=== PATIENT | male | born 1945 | race Caucasian/White ===

== ENCOUNTER 2017-04-30 08:22 | Inpatient (IN) | payer MEDICARE ==
--- NOTE | 2017-04-30 09:23 | US ---
EXAMINATION TYPE: US duplex aorta DATE OF EXAM: 04/30/2017 COMPARISON: NONE CLINICAL HISTORY: Z13.9 Screening unspecified, I10 HTN. Patient states no symptoms at this time EXAM MEASUREMENTS: Abdominal Aorta: Proximal: 2.3 x 2.2cm Mid: 1.9 x 2.1cm Distal: 1.7 x 1.5cm Right Iliac: 1.3 x 1.3cm Left Iliac: 1.2 x 1.3cm Visualized portions of abdominal aorta and proximal iliacs appear wnl, no AAA seen at this time, mid portion of aorta partially obscured by overlying midline bowel gas. IMPRESSION: No sonographic evidence of abdominal aortic aneurysm.
--- NOTE | 2017-04-30 11:28 | ECHOS ---
STRESS ECHOCARDIOGRAM INDICATIONS: Physical. MEDICATIONS: Lisinopril, aspirin. BASELINE HEART RATE: 79 BASELINE BLOOD PRESSURE: 153/103 MAXIMUM HEART RATE: 143 MAXIMUM BLOOD PRESSURE: 155/80 85% MPHR: 128 100% MPHR: 150 METS: 7.0 MAXIMUM STAGE REACHED: II TOTAL EXERCISE TIME: 5:06 CLINICAL INFORMATION: Baseline rhythm is sinus mechanism, rate of 79, borderline axis deviation, nonspecific ST-T wave changes. QS from V1 to V3 suggestive of anterior wall myocardial infarction. Baseline blood pressure 153/103 mmHg. Patient exercised on Zeferino protocol for 5 minutes, 6 seconds reaching a peak heart rate of 143 beats per minute which was equal to 95% of maximum predicted heart rate. Peak blood pressure 155/80 mmHg. Test was terminated due to fatigue. There was no chest pain. Electrocardiograph monitoring revealed a [address]-segment depression in inferolateral leads with occasional PVCs. FINDINGS: Baseline echocardiogram revealed anteroseptal and anteroapical severe hypokinesis that got worse at peak exercise with some improvement in recovery. CONCLUSION: 1. Average exercise tolerance with positive electrocardiographic stress testing and occasional premature ventricular contractions. 2. Abnormal stress echocardiogram with baseline segmental wall motion abnormality that got worse at peak exercise, suggestive of stress-induced ischemia in the left anterior descending artery territory. MMODL / IJN: [id number] /
--- NOTE | 2017-04-30 11:35 | ECHOF ---
Referral Reason:Z13.9 Screening Unspecified, I10 HTN MEASUREMENTS -------- HEIGHT: 172.7 cm WEIGHT: 98.4 kg BP: IVSd: 1.3 cm (0.6 - 1.1) LVIDd: 6.2 cm (3.9 - 5.3) LVPWd: 1.3 cm (0.6 - 1.1) IVSs: 1.5 cm LVIDs: 5.5 cm LVPWs: 1.3 cm LA Diam: 4.3 cm (2.7 - 3.8) LAESV Index (A-L): 39.66 ml/m Ao Diam: 3.4 cm (2.0 - 3.7) AV Cusp: 1.7 cm (1.5 - 2.6) LA Diam: 3.3 cm (2.7 - 3.8) MV EXCURSION: 14.924 mm (> 18.000) MV EF SLOPE: 79 mm/s (70 - 150) EPSS: 2.6 cm MV E Ch[place]: 0.40 m/s MV DecT: 283 ms MV A [place]: 0.61 m/s MV E/A Ratio: 0.66 RAP: 5.00 mmHg RVSP: 12.04 mmHg FINDINGS -------- Sinus rhythm. This was a technically adequate study. This was a techncally difficult study with suboptimal views, , Definity utilized for enhancement of images. The left ventricular size is normal. Left ventricular wall thickness is normal. Overall left vent ricular systolic function is severely impaired with, an EF between 25 - 30 %. Mid anterior LV wall motion is akinetic. Mid lateral LV wall motion is hypokinetic. Mid anteroseptal LV wall motion is hypokinetic. Apical anterior LV wall motion is akinetic. Apical lateral LV wall motion is ak inetic. Apical septum LV wall motion is akinetic. The right ventricle is normal in size and function. LA is moderately dilated 34-39 ml/m2 The right atrium is normal in size. 1.5mg of Definity was utilized for enhancement of images There is mild aortic valve sclerosis. There is mild aortic regurgitation. Mild mitral annular calcification present. Hxrw-lp-[id number] mitral regurgitation is present. Mild tricuspid regurgitation present. There is no evidence of pulmonary hypertension. The right v entricular systolic pressure, as measured by Doppler, is 12.04mmHg. Trace/mild (physiologic) pulmonic regurgitation. There is no pericardial effusion. CONCLUSIONS -------- 1. Sinus rhythm. 2. This was a technically adequate study. 3. This was a techncally difficult study with suboptimal views, , Definity utilized for enhancement o f images. 4. The left ventricular size is normal. 5. Left ventricular wall thickness is normal. 6. Overall left ventricular systolic function is severely impaired with, an EF between 25 - 30 %. 7. Mid anterior LV wall motion is akinetic. 8. Mid lateral LV wall motion is hypokinetic. 9. Mid anteroseptal LV wall motion is hypokinetic. 10. Apical anterior LV wall motion is akinetic. 11. Apical lateral LV wall motion is akinetic. 12. Apical septum LV wall motion is akinetic. 13. LA is moderately dilated 34-39 ml/m2 14. 1.5mg of Definity was utilized for enhancement of images 15. There is mild aortic regurgitation. 16. Mild mitral annular calcification present. 17. Colq-ba-qaukoebt mitral regurgitation is present. 18. Mild tricuspid regurgitation present. 19. There is no evidence of pulmonary hypertension. 20. Trace/mild (physiologic) pulmonic regurgitation. 21. There is no pericardial effusion. SOLVENT MIXER: Ruth Ascencio RDCS
[2017-04-30] MEDS ORDERED: HEPARIN SODIUM,PORCINE 5,000 UNIT/ML 1 ML VIAL IV ONE (11:50)
[2017-04-30] MEDS ORDERED: HEPARIN SODIUM,PORCINE 5,000 UNIT/ML 1 ML VIAL IV PRN (11:50)
[2017-04-30] MEDS ORDERED: ALPRAZolam 0.25 MG TAB PO PRN (11:52)
[2017-04-30] MEDS ORDERED: ALPRAZolam 0.5 MG TAB PO PRN (11:52)
[2017-04-30] MEDS ORDERED: NITROGLYCERIN SL TABS 0.4 MG TAB SUBLINGUAL PRN (11:52)
[2017-04-30] MEDS ORDERED: SODIUM CHLORIDE 0.9% 1,000 ML in EMPTY BAG 1 BAG IV ONE (11:52)
[2017-04-30] MEDS: HEPARIN SOD,PORK IN 0.45% NACL 25,000 UNIT in 0.45% NACL 1 500ML.BAG IV SCH (13:00)
[2017-04-30 13:08] LABS: Basophils # (A) 0.1 k/uL (0-0.2); Basophils % (A) 1 %; Eosinophils # (A) 0.2 k/uL (0-0.7); Eosinophils % (A) 3 %; HCT 47.4 % (39.0-53.0); HGB 15.6 gm/dL (13.0-17.5); Lymphocytes # (A) 1.7 k/uL (1.0-4.8); Lymphocytes % (A) 25 %; MCH 31.9 pg (25.0-35.0); MCV 96.8 fL (80.0-100.0); Mean Platelet Volume 6.7; Monocytes # (A) 0.5 k/uL (0-1.0); Monocytes % (A) 7 %; Neutrophils # (A) 4.3 k/uL (1.3-7.7); Neutrophils % (A) 62 %; Platelet Count 188 k/uL (150-450); RBC 4.89 m/uL (4.30-5.90); RDW 13.1 % (11.5-15.5)
[2017-04-30 13:09] LABS: Anion Gap 10 mmol/L; Blood Urea Nitrogen 16 mg/dL (9-20); Carbon Dioxide 26 mmol/L (22-30); Chloride 105 mmol/L (98-107); Glucose 97 mg/dL (74-99); Potassium 4.7 mmol/L (3.5-5.1); Sodium 141 mmol/L (137-145)
[2017-04-30 13:10] LABS: INR 1.1 (<1.2); Partial Thromboplastin Time 23.5 sec (22.0-30.0); Prothrombin Time 10.4 sec (9.0-12.0)
[2017-04-30] MEDS: METOPROLOL TARTRATE 25 MG TAB PO SCH ×2 (13:29→20:22)
--- NOTE | 2017-04-30 13:34 | CONS ---
CONSULTATION Mr. Mittal is a 71-year-old male with a history of hypertension and no prior documented history of coronary artery disease who presented to undergo a stress test. He has complained of significant dyspnea on exertion about a week or so ago working outside trying to pull some of [place] material from the beach. He has been active physically but not over the last year or so. He had a normal EKG and was referred to undergo a stress echocardiogram. His baseline echocardiogram revealed anteroapical anteroseptal hypokinesis that worsened at peak exercise and had significant dyspnea at peak exercise with EKG changes. The patient denies any clear symptoms of chest discomfort. He has no PND or orthopnea. He denies any peripheral edema. He has a prior history of varicose vein with intervention performed by Dr. Cook on the left lower extremity. He has no prior cardiac history or prior cardiac workup. His coronary risk factors are positive for hypertension. He is nondiabetic, nonsmoker. His lipid profile is not available to me. MEDICATIONS: His medications at home include lisinopril 20 mg daily and aspirin once a day. REVIEW OF SYSTEMS: RESPIRATORY SYSTEM: He has no documented history of asthma, emphysema or bronchitis. GI SYSTEM: No recent GI bleeding. No peptic ulcer disease. SYSTEM: No dysuria or hematuria. PHYSICAL EXAMINATION: He is a 71-year-old male, alert, oriented, in no apparent distress. Blood pressure 150/90 with a heart rate in the 70s. HEAD: Normocephalic. EYES: Sclerae anicteric. NECK: Good carotid upstroke. No bruit. No jugular venous distention. LUNGS: Clear to auscultation. HEART: Regular rate and rhythm, S1, S2, no S3 with a systolic murmur at the base. No diastolic murmur. No rub. ABDOMEN: Soft, nontender, obese. Positive bowel sounds. No organomegaly. EXTREMITIES: +1 edema bilaterally, more noted on the right side. LAB DATA: Lab data are pending. IMPRESSION: 1. Evidence of ischemic cardiomyopathy with severely impaired left ventricular systolic function with evidence of inducible ischemia in the left anterior descending artery territory of unknown duration. 2. Hypertension. RECOMMENDATION: In view of the finding and the presentation, I have recommended proceeding with coronary angiography to assess his status and guide his treatment. The rationale behind the procedure as well as the risks and complications were discussed with the patient and his and they are in full understanding and agreement. Thank you for this consult. We will follow with you. MMODL / IJN: [id number] /
[2017-04-30 17:00] LABS: Glucose,Whole Blood 89 mg/dL (75-99)
[2017-04-30] MEDS: ASPIRIN 81 MG PO SCH (17:37)
[2017-04-30] MEDS: ATORVASTATIN 80 MG TAB PO SCH (20:22)
[2017-04-30] MEDS: LISINOPRIL 5 MG TAB PO SCH (20:22)
[2017-05-01] MEDS ORDERED: ASPIRIN 81 MG PO STA (04:02)
[2017-05-01 06:00] LABS: Basophils # (A) 0.1 k/uL (0-0.2); Basophils % (A) 1 %; Eosinophils # (A) 0.3 k/uL (0-0.7); Eosinophils % (A) 4 %; HCT 46.6 % (39.0-53.0); HGB 14.8 gm/dL (13.0-17.5); Lymphocytes # (A) 1.6 k/uL (1.0-4.8); Lymphocytes % (A) 26 %; MCH 30.6 pg (25.0-35.0); MCHC 31.8 g/dL (31.0-37.0); MCV 96.2 fL (80.0-100.0); Mean Platelet Volume 7.1; Monocytes # (A) 0.5 k/uL (0-1.0); Monocytes % (A) 8 %; Neutrophils # (A) 3.7 k/uL (1.3-7.7); Neutrophils % (A) 59 %; Platelet Count 176 k/uL (150-450); RBC 4.85 m/uL (4.30-5.90); RDW 13.1 % (11.5-15.5); WBC 6.3 k/uL (3.8-10.6)
[2017-05-01 06:19] LABS: Cholesterol 165 mg/dL (<200); HDL Cholesterol 46 mg/dL (40-60); LDL Cholesterol,Calculated 93 mg/dL (0-99); Triglycerides 128 mg/dL (<150)
[2017-05-01] MEDS: LISINOPRIL 5 MG TAB PO SCH (06:59)
[2017-05-01] MEDS: METOPROLOL TARTRATE 25 MG TAB PO SCH ×2 (07:00→20:15)
[2017-05-01] MEDS ORDERED: CHLOROPROCAINE 3% 30 MG/ML 20 ML VIAL MISCELLANE STA (11:21)
--- NOTE | 2017-05-01 11:26 | P.HPIM ---
History of Present Illness 71-year-old male was admitted after abnormal stress test. Patient states he's had intermittent exertional dyspnea no chest pain. Was found to have abnormal EKG and routine physical at primary care physician office Dr. Mcknight. Patient awaiting cardiac cath Review of Systems Respiratory: Reports dyspnea Past Medical History Past Medical History: Hypertension, Osteoarthritis (OA), Pneumonia, Syncope Additional Past Medical History / Comment(s): 2012 [facility] for lle wound History of Any Multi-Drug Resistant Organisms: None Reported Additional Past Surgical History / Comment(s): vasectomy Past Anesthesia/Blood Transfusion Reactions: No Reported Reaction Smoking Status: Former smoker - Past Family History Father Family Medical History: Myocardial Infarction (MD) Additional Family Medical History / Comment(s): at age 90 from [place] Mother Family Medical History: No Reported History Additional Family Medical History / Comment(s): at age 92 "from old age" Medications and Allergies Home Medications Medication Instructions Recorded Confirmed Type Aspirin 325 mg PO DAILY 10/11/15 04/30/17 History Lisinopril [Zestril] 20 mg PO DAILY 10/11/15 04/30/17 History Allergies Allergy/AdvReac Type Severity Reaction Status Date / Time Penicillins Allergy Unknown Verified 04/30/17 13:43 NOVACAINE Allergy Unknown Uncoded 10/11/15 18:42 Physical Exam Vitals: Vital Signs Temp Pulse Resp BP Pulse Ox 05/01/17 07:37 98.3 F 61 16 127/66 97 05/01/17 04:00 59 L 17 05/01/17 03:21 97.4 F L 59 L 17 109/69 97 05/01/17 00:00 17 04/30/17 23:42 98.6 F 61 17 97/60 04/30/17 20:00 17 04/30/17 19:25 97.5 F L 106 H 17 153/93 04/30/17 14:45 97.5 F L 69 18 149/88 96 04/30/17 11:56 97.9 F 20 140/98 98 Intake and Output 04/30/17 05/01/17 05/01/17 22:59 06:59 14:59 Intake Total 540 0 Balance 540 0 Intake: Oral 540 0 Other: Voiding Method Toilet Toilet Toilet # Voids 1 1 Weight 112.037 kg Patient Weight 05/02/17 06:59 Weight 112.037 kg - Constitutional General appearance: obese - EENT Eyes: PERRLA Ears: bilateral: normal - Neck Neck: normal ROM - Respiratory Respiratory: bilateral: CTA - Cardiovascular Rhythm: regular ankle Peripheral Edema: bilateral: 1+ - Gastrointestinal General gastrointestinal: soft - Integumentary Integumentary: normal - Neurologic Neurologic: CNII-XII intact - Musculoskeletal Musculoskeletal: gait normal - Psychiatric Psychiatric: A&O x's 3, appropriate affect, intact judgment & insight Results CBC & Chem 7: 05/01/17 05:23 04/30/17 12:31 Labs: Abnormal Lab Results - Last 24 Hours (Table) 04/30/17 Range/Units 19:02 APTT 47.6 H (22.0-30.0) sec Thrombosis Risk Factor Assmnt - Choose All That Apply Any of the Below Risk Factors Present?: Yes Each Factor Represents 1 point: Oral contraceptives or hormone replacement therapy Other Risk Factors: Yes Each Risk Factor Represents 2 Points: Age 61-74 years Other congenital or acquired thrombophilia - If yes, enter type in comment: No Thrombosis Risk Factor Assessment Total Risk Factor Score: 3 Thrombosis Risk Factor Assessment Level: Moderate Risk Assessment and Plan Plan: Assessment Positive stress test evidence of ischemic cardiomyopathy with severely impaired left ventricular function History of hypertension CHF systolic dysfunction ejection fraction 25-30% Osteoarthritis Plan Continue consultation with cardiology cardiac cath plan for today
[2017-05-01] MEDS ORDERED: IV FLUID CONTINUATION 1,000 ML IV ONE (11:30)
[2017-05-01] MEDS ORDERED: fentaNYL (PF) 50 MCG/ML 2 ML AMP IV ONE (11:33)
[2017-05-01] MEDS ORDERED: LIDOCAINE 2% INJ 20 MG/ML SQ ONE (11:35)
[2017-05-01] MEDS: VERAPAMIL SYRINGE (5 MG/10 ML) INTRAARTER ONE ×2 (11:36→11:42)
[2017-05-01] MEDS ORDERED: MIDAZOLAM 2 MG/2 ML VIAL IV ONE (11:37)
[2017-05-01] MEDS ORDERED: HYDROmorphone 2 MG/ML 1 ML SYRINGE IV ONE (11:47)
[2017-05-01] MEDS ORDERED: IOHEXOL 350 MG/ML 125ML BOTTLE INJ ONE (11:56)
[2017-05-01] MEDS ORDERED: RX INFO: IV CONTRAST WAS GIVEN 1 EACH MISC MISCELLANE PRN (12:02)
[2017-05-01] MEDS ORDERED: LISINOPRIL 5 MG TAB PO ONE (12:15)
[2017-05-01] MEDS ORDERED: SODIUM CHLORIDE 0.9% 1,000 ML IV SCH (12:15)
--- NOTE | 2017-05-01 12:57 | CC ---
CARDIAC CATHETERIZATION REPORT Mr. Mittal is a 71-year-old male with history of hypertension, hyperlipidemia, who presented to undergo a stress echocardiogram that showed evidence of inducible ischemia involving the anterior wall with segmental wall motion abnormality at rest. In view of that, recommendation made regarding cardiac catheterization. The procedure, risks and complication were discussed with the patient who is in full understanding and agreement. PROCEDURE: Patient was brought to the [facility] in a fasting semi-sedated state after receiving fentanyl and Benadryl and achieving moderate conscious sedated state. Using Xylocaine anesthesia and Seldinger technique, a 6-Icelandic sheath was introduced in the right radial artery. Selective right and left angiography performed using 5-Icelandic 3.5 bend right and left Shobha catheter, multiple views of the coronary artery including hemiaxial views were obtained. Following that, catheter and sheaths were removed. Hemostasis was obtained with deployment of a TR band. There was no immediate complication. Patient is returned to his room in stable condition. Of note, patient received 5000 units of intravenous heparin as well as intra-arterial verapamil. FINDINGS: 1. FLUOROSCOPY: There was significant calcification involving the coronary arteries. 2. LEFT MAIN: This is a short size vessel bifurcating into left circumflex, left anterior descending artery, left main coronary artery has no evidence of high-grade stenosis. 3. LEFT ANTERIOR DESCENDING ARTERY: This vessel is totally occluded proximally with no significant antegrade flow. There is filling of the LAD and the diagonal branch in a retrograde fashion with ipsilateral and contralateral collaterals. 4. LEFT CIRCUMFLEX: This is a nondominant vessel giving rise to 2 obtuse marginal branch after the takeoff of the first obtuse marginal branch. The vessel is subtotally occluded with slow flow into the distal left circumflex. 5. RIGHT CORONARY ARTERY: This is a large dominant vessel bifurcating distally into PDA and PLV. The takeoff of the PDA has a 90% stenosis. The rest of the vessel has no high-grade stenosis. 6. LEFT VENTRICULOGRAM: Left ventriculogram was not performed. CONCLUSION: 1. Severe triple-vessel coronary artery disease with chronically occluded proximal left anterior descending artery with ipsilateral and contralateral collaterals. 2. Calcified coronary arteries. RECOMMENDATION: Recommend proceeding with coronary artery bypass grafting in view of his finding and his anatomy. Those findings and recommendation were discussed with the patient and his family who are in full understanding and agreement. DURATION OF THE PROCEDURE: 20 minutes. MMODL / IJN: [id number] /
--- NOTE | 2017-05-01 13:03 | LTR ---
DATE OF SERVICE: 05/01/2017 RE: KyrieJavad Dear Dr. Mcknight; I had the pleasure to perform cardiac catheterization on Mr. Mittal at [facility] on May 01, 2017 and a full copy of the procedure note will be forwarded to you. In brief, he was found to have a chronic occluded proximal LAD as well as distal left circumflex and significant disease in the right PDA with ipsilateral and contralateral collaterals to the LAD and based on those findings, I have recommended proceeding with evaluation for coronary artery bypass grafting. I will keep you updated on his progress and thank you again for allowing me to participate in this patient's care. Please feel free to call for any questions. Sincerely yours, MD JOEY Neely / REY: [id number] /
--- NOTE | 2017-05-01 15:21 | CDI ---
Last Revision, February 2017 Documentation Clarification Form Date: 05/01/2017 3:11:00 PM From: Randi MooreBourgeoisBEATRIZ coulter, CCDS Admit Date: 05/01/2017 2:20:00 PM Patient Name: Javad Mittal Visit Number: [id number] Discharge Date: ATTENTION: The Clinical Documentation Specialists (CDI) and [facility] Coding Staff appreciate your assistance in clarifying documentation. Please respond to the clarification below the line at the bottom and electronically sign. The CDI & [facility] Coding staff will review the response and follow-up if needed. Please note: Queries are made part of the Legal Health Record. If you have any questions, please contact the author of this message via ITS. Dr. Beto Mcknight: History/Risk Factors: Hypertension, Former smoker. Clinical Indicators: Presented with dyspnea on exertion, abnormal stress test. VSS Per H/P: EF 25-30% Treatment: Left Heart Cath done: Severe triple vessel CAD w/chronically occluded proximal LAD arery. CABG is recommended by cardiology. In your professional opinion, can you please clarify the acuity and type of CHF if known? Systolic Heart Failure: o Acute o Chronic o Acute on Chronic o Unable to Determine o Other, please specify Please continue to document in your progress notes and discharge summary in order to capture severity of illness and risk of mortality. Include clinical findings that support your diagnosis. MTDD
[2017-05-01] MEDS: ASPIRIN 81 MG PO SCH (16:00)
--- NOTE | 2017-05-01 17:50 | P.GSCN ---
History of Present Illness Consult date: 05/01/17 Reason for Consult: Severe triple-vessel coronary artery disease, recommendations for myocardial revascularization surgery. Requesting physician: Rolando House History of present illness: This is a 71-year-old gentleman who is followed by Dr. Beto Mcknight on an outpatient basis. His past medical history includes hypertension, osteoarthritis, remote history of pneumonia, and a remote history of tobacco abuse which he quit over 20 years ago. About 3 weeks ago the patient presented to his primary care's office for an annual checkup. A 12-lead EKG was completed which was normal, although he was referred to undergo a stress echocardiogram. Recently, the patient has had complaints of some progressive shortness of breath with periodic episodes of chest pain with activity. The patient denies any nausea, vomiting, fever, chills, or dizziness. On 2017 the patient underwent a stress echocardiogram which showed average exercise tolerance with positive electrocardiographic stress testing and occasional premature ventricular contractions. It also showed abnormal stress echocardiogram with baseline segmental wall motion abnormality that got worse at peak exercise, suggestive of stress-induced ischemia in the left anterior descending artery territory. Due to the patient's positive stress echocardiogram he was recommended to undergo a cardiac catheterization. On 10/2017 the patient was taken to the [facility] and after obtaining consent Dr. House performed a cardiac catheterization which demonstrated a totally occluded left anterior descending coronary artery, a subtotally occluded circumflex coronary artery with slow flow into the distal left circumflex, and a 90% stenosis to his posterior descending coronary artery. Due to the patient' s above-mentioned symptoms, abnormal stress echocardiogram and cardiac catheterization findings a consult was placed for Dr. Lacey from cardiothoracic surgery, for recommendations on myocardial revascularization surgery. Review of Systems A 12 point review of systems was completed and was negative except as mentioned in HPI. Past Medical History Past Medical History: Hypertension, Osteoarthritis (OA), Pneumonia Additional Past Medical History / Comment(s): 2013 was treated in the wound healing center at [facility] for left lower extremity wound ulcer. History of Any Multi-Drug Resistant Organisms: None Reported Additional Past Surgical History / Comment(s): vasectomy, wound debridement to his left lower extremity in 2013 with vein stripping to his left leg. Past Anesthesia/Blood Transfusion Reactions: No Reported Reaction Past Psychological History: No Psychological Hx Reported Smoking Status: Former smoker (Quit 20 years ago.) Past Alcohol Use History: Occasional (Less than 1 drink a week.) Past Drug Use History: None Reported - Past Family History Father Family Medical History: Myocardial Infarction (AR) Additional Family Medical History / Comment(s): at age 90 from [place] Mother Family Medical History: No Reported History Additional Family Medical History / Comment(s): at age 92 "from old age" Medications and Allergies Home Medications Medication Instructions Recorded Confirmed Type Aspirin 325 mg PO DAILY 10/11/15 04/30/17 History Lisinopril [Zestril] 20 mg PO DAILY 10/11/15 04/30/17 History Allergies Allergy/AdvReac Type Severity Reaction Status Date / Time Penicillins Allergy Unknown Verified 04/30/17 13:43 NOVACAINE Allergy Unknown Uncoded 10/11/15 18:42 Surgical - Exam Vital Signs Temp Resp BP Pulse Ox 97.9 F 20 140/98 98 04/30/17 11:56 04/30/17 11:56 04/30/17 11:56 04/30/17 11:56 - General well developed, well nourished, no distress, no pain, obese - Eyes PERRL, normal ocular movement - ENT normal pinna, normal nares, normal mucosa, no hearing loss, no congestion - Neck Neck supple no lymphadenopathy. no masses, no bruits, trachea midline, no venous distension - Respiratory Lungs sounds essentially clear throughout, diminished was bilateral bases. Respirations are symmetrical and nonlabored. Oxygen saturation are 97% on room air. - Cardiovascular Regular rhythm and rate. S1 and S2 present, negative for S3, gallop or murmur. Remote telemetry showing sinus bradycardia heart rate 53. No edema present. Peripheral pulses palpable. - Abdomen Abdomen is soft, nontender nondistended. Active bowel sounds all 4 abdominal quadrants. No organomegaly, no guarding or rigidity. - Integumentary no rash, no growths, no abnormal pigmentation - Neurologic normal coordination, normal sensation - Musculoskeletal normal gait, normal posture - Psychiatric oriented to time, oriented to person, oriented to place, speech is normal, memory intact Results - Labs 05/01/17 05:23 04/30/17 12:31 Abnormal Lab Results - Last 24 Hours (Table) 04/30/17 Range/Units 19:02 APTT 47.6 H (22.0-30.0) sec Diabetes panel 05/01/17 Range/Units 05:23 Triglycerides 128 (<150) mg/dL HDL Cholesterol 46 (40-60) mg/dL - Imaging Comments: Stress echo results reviewed, cardiac catheterization films and report reviewed by Dr. Edwin Lacey. Assessment and Plan (1) Hypertension Current Visit: Yes Status: Acute Code(s): I10 - ESSENTIAL (PRIMARY) HYPERTENSION SNOMED Code(s): 07457203 (2) Coronary artery disease Current Visit: Yes Status: Acute Code(s): I25.10 - ATHSCL HEART DISEASE OF [place] CORONARY ARTERY W/O ANG PCTRS SNOMED Code(s): 30696924 (3) Osteoarthritis Current Visit: Yes Status: Acute Code(s): M19.90 - UNSPECIFIED OSTEOARTHRITIS, UNSPECIFIED SITE SNOMED Code(s): 187141540 (4) History of tobacco abuse Current Visit: Yes Status: Acute Code(s): Z87.891 - PERSONAL HISTORY OF NICOTINE DEPENDENCE SNOMED Code(s): 0727267095319 Plan: The patient was seen and examined. His chart and diagnostics were reviewed. Preoperative teaching was initiated with the patient and his . Preoperative testing initiated. Dr. Lacey spoke with the patient and his , the patient will follow-up with Dr. Lacey in the office on 05/08/2017 at 3: 15 PM to discuss the risks and benefits of myocardial revascularization. Continue aspirin, statin, MARY ANNE inhibitor and beta rosita. We will obtain a 2-D echocardiogram to assess his valvular function. Thank you Dr. House for this consult and we look for to working with you in the care of your patient. Time with Patient: Greater than 30
[2017-05-01 18:06] LABS: Magnesium 2.2 mg/dL (1.6-2.3)
[2017-05-01] MEDS: ATORVASTATIN 80 MG TAB PO SCH (20:15)
[2017-05-01] MEDS: LISINOPRIL 10 MG TAB PO SCH (20:15)
[2017-05-01] MEDS: HEPARIN SOD,PORK IN 0.45% NACL 25,000 UNIT in 0.45% NACL 1 500ML.BAG IV SCH (22:48)
[2017-05-02 00:04] LABS: Appearance,Urine Clear (Clear); Bilirubin,Urine Negative (Negative); Blood,Urine Negative (Negative); Color,Urine Yellow; Glucose,Urine (UA) Negative (Negative); Ketones,Urine Negative (Negative); Leukocyte Esterase,Urine Negative (Negative); Nitrite,Urine Negative (Negative); Protein,Urine Negative (Negative); Specific Gravity,Urine 1.016 (1.001-1.035); Urobilinogen,Urine <2.0 mg/dL (<2.0)
[2017-05-02 00:55] VITALS: RESP 18
[2017-05-02 01:35] LABS: Hemoglobin A1C 5.4 % (4.0-6.0)
[2017-05-02 01:49] LABS: Hepatitis A Antibody IgM Non-Reactive (Non-Reactive); Hepatitis B Core IgM Non-Reactive (Non-Reactive)
[2017-05-02 05:57] VITALS: TEMP 97.9
[2017-05-02 06:02] LABS: ALT 36 U/L (21-72); AST 25 U/L (17-59); Albumin 3.4 g/dL (3.5-5.0); Alkaline Phosphatase 46 U/L (38-126); Anion Gap 10 mmol/L; Blood Urea Nitrogen 18 mg/dL (9-20); Calcium 8.5 mg/dL (8.4-10.2); Carbon Dioxide 21 mmol/L (22-30); Chloride 107 mmol/L (98-107); Glucose 94 mg/dL (74-99); Potassium 4.6 mmol/L (3.5-5.1); Sodium 138 mmol/L (137-145); Total Bilirubin 0.4 mg/dL (0.2-1.3); Total Protein 5.7 g/dL (6.3-8.2)
[2017-05-02 06:25] LABS: Basophils # (A) 0.1 k/uL (0-0.2); Basophils % (A) 1 %; Eosinophils # (A) 0.2 k/uL (0-0.7); Eosinophils % (A) 4 %; HCT 43.4 % (39.0-53.0); Lymphocytes # (A) 1.8 k/uL (1.0-4.8); Lymphocytes % (A) 29 %; MCH 31.1 pg (25.0-35.0); MCHC 32.4 g/dL (31.0-37.0); Mean Platelet Volume 7.2; Monocytes # (A) 0.5 k/uL (0-1.0); Monocytes % (A) 8 %; Neutrophils # (A) 3.3 k/uL (1.3-7.7); Neutrophils % (A) 55 %; Platelet Count 154 k/uL (150-450); RBC 4.52 m/uL (4.30-5.90); RDW 13.1 % (11.5-15.5); WBC 5.9 k/uL (3.8-10.6)
--- NOTE | 2017-05-02 07:27 | XR ---
EXAMINATION TYPE: XR chest 2V DATE OF EXAM: 05/02/2017 COMPARISON: 12/31/2014 INDICATION: Presurgical clearance TECHNIQUE: Frontal and lateral views of the chest are obtained. FINDINGS: The heart size is normal. The pulmonary vasculature is normal. The lungs are clear. IMPRESSION: 1. No acute pulmonary process.
[2017-05-02 07:38] VITALS: PULSE 61
[2017-05-02] MEDS: ASPIRIN 81 MG PO SCH (07:38)
[2017-05-02] MEDS: METOPROLOL TARTRATE 25 MG TAB PO SCH (07:38)
[2017-05-02] MEDS: LISINOPRIL 10 MG TAB PO SCH (07:38)
--- NOTE | 2017-05-02 08:39 | P.PN ---
<Sailaja De La O - Last Filed: 05/02/17 08:37> Subjective Progress Note Date: 05/02/17 Principal diagnosis: Severe triple vessel coronary artery disease. Previous history of hypertension , osteoporosis, remote history of pneumonia, previous tobacco dependence, wound debridement and vein stripping to his left leg. Patient currently sitting up in bed in no acute distress. Denies any chest pain or shortness of breath. Preoperative teaching reinforced. Preoperative testing ongoing. Objective - Vital Signs Vital signs: Vital Signs Temp 97.9 F 05/02/17 07:32 Pulse 61 05/02/17 07:32 Resp 18 05/02/17 07:32 BP 129/83 05/02/17 07:32 Pulse Ox 96 05/02/17 07:32 Intake & Output 05/01/17 05/02/17 05/02/17 18:59 06:59 18:59 Intake Total 998 1600 Output Total 300 Balance 698 1600 Weight 112.037 kg 112.5 kg Intake: IV 100 Intake, IV Titration 1600 Amount Sodium Chloride 0.9% 1, 1600 000 ml @ 100 mls/hr IV . Q10H [facility] Rx#:[id number] Oral 898 Output: Urine 300 Stool 0 Urine/Stool Mix 0 Other: Voiding Method Toilet Toilet # Voids 0 # Bowel Movements 0 - Constitutional General appearance: Present: cooperative, no acute distress, obese - Respiratory Details: Lungs sounds diminished bilaterally. Respirations even, nonlabored. Currently on room air with oxygen saturation 99%. Able to achieve 2000 mL on his incentive spirometry. - Cardiovascular Details: S1, S2 present. Regular rate and rhythm, sinus rhythm on telemetry. Palpable peripheral pulses bilaterally. No edema present. No calf pain or tenderness noted. - Gastrointestinal Gastrointestinal Comment(s): Abdomen soft, nontender, nondistended. Active bowel sounds 4 quadrants. Tolerating diet. - Genitourinary Genitourinary Comment(s): Continues to void clear, yellow urine. - Integumentary Integumentary Comment(s): Skin is warm and dry with evidence of good perfusion. Right radial heart catheterization site without edema or ecchymosis. - Neurologic Neurologic: Present: CNII-XII intact - Musculoskeletal Musculoskeletal: Present: gait normal, strength equal bilaterally - Psychiatric Psychiatric: Present: A&O x's 3, appropriate affect, intact judgment & insight - Allied health notes Allied health notes reviewed: nursing - Labs CBC & Chem 7: 05/02/17 05:31 05/02/17 05:31 Labs: Abnormal Lab Results - Last 24 Hours (Table) 05/02/17 Range/Units 05:31 Carbon Dioxide 21 L (22-30) mmol/L Total Protein 5.7 L (6.3-8.2) g/dL Albumin 3.4 L (3.5-5.0) g/dL - Imaging and Cardiology Chest x-ray: report reviewed, image reviewed Assessment and Plan (1) Coronary artery disease Current Visit: Yes Status: Chronic Code(s): I25.10 - ATHSCL HEART DISEASE OF [place] CORONARY ARTERY W/O ANG PCTRS SNOMED Code(s): 21744688 (2) History of tobacco abuse Current Visit: No Status: Resolved Code(s): Z87.891 - PERSONAL HISTORY OF NICOTINE DEPENDENCE SNOMED Code(s): 6032025231325 (3) Hypertension Current Visit: Yes Status: Chronic Code(s): I10 - ESSENTIAL (PRIMARY) HYPERTENSION SNOMED Code(s): 11024391 (4) Osteoarthritis Current Visit: Yes Status: Chronic Code(s): M19.90 - UNSPECIFIED OSTEOARTHRITIS, UNSPECIFIED SITE SNOMED Code(s): 089954163 Plan: 1. Continue aspirin, statin, MARY ANNE inhibitor, beta rosita. 2. Continue preoperative teaching. 3. Will review preoperative testing results as they become available. 4. Patient has a follow-up appointment with Dr. Lacey in the office on 2017 at 3:15 PM to discuss risks and benefits of open heart surgery. 5. Medical management per primary care service. 6. Encourage incentive spirometry. 7. More recommendations to follow. Time with Patient: Greater than 30 <Christiano Singh - Last Filed: 05/02/17 15:14> Objective - Vital Signs Vital signs: Vital Signs Temp 97.9 F 05/02/17 12:00 Pulse 61 05/02/17 12:00 Resp 18 05/02/17 12:00 BP 107/80 05/02/17 12:00 Pulse Ox 97 05/02/17 12:00 Intake & Output 05/01/17 05/02/17 05/02/17 18:59 06:59 18:59 Intake Total 998 1600 240 Output Total 300 Balance 698 1600 240 Weight 112.037 kg 112.5 kg Intake: IV 100 Intake, IV Titration 1600 Amount Sodium Chloride 0.9% 1, 1600 000 ml @ 100 mls/hr IV . Q10H [facility] Rx#:[id number] Oral 898 240 Output: Urine 300 Stool 0 Urine/Stool Mix 0 Other: Voiding Method Toilet Toilet # Voids 0 # Bowel Movements 0 - Labs CBC & Chem 7: 05/02/17 05:31 05/02/17 05:31 Labs: Abnormal Lab Results - Last 24 Hours (Table) 05/02/17 Range/Units 05:31 Carbon Dioxide 21 L (22-30) mmol/L Total Protein 5.7 L (6.3-8.2) g/dL Albumin 3.4 L (3.5-5.0) g/dL Microbiology - Last 24 Hours (Table) 05/01/17 23:54 Urine Culture - Preliminary Urine,Voided Assessment and Plan Plan: The patient was seen and examined. I agree with the above assessment and plan. Patient is currently undergoing preoperative testing. He will follow up with Dr. Lacey as an outpatient for consideration of coronary artery bypass surgery.
--- NOTE | 2017-05-02 08:46 | P.PN ---
Progress Note - Text addendum CHF as exhibited by echo EF 25-30% systolic dysfunction chronic
--- NOTE | 2017-05-02 11:19 | PN ---
PROGRESS NOTE Mr. Mittal is a 71-year-old male who presented with an abnormal stress echocardiogram with evidence of inducible ischemia involving the LAD as well as reversible defect. He underwent a cardiac catheterization and was found to have totally occluded proximal LAD. He also had totally occluded distal circumflex and significant obstructive disease involving the takeoff of the right PDA. The patient was evaluated by the surgical team and scheduled to undergo further evaluation as an outpatient and coronary artery bypass grafting in a week or so. He is feeling well today. He is denying any chest pain. No breathing problem. No dizziness. He continues to be on aspirin once a day, Lipitor 80 mg daily, lisinopril 10 mg twice a day, and metoprolol tartrate 25 mg twice a day. PHYSICAL EXAMINATION: Blood pressure 129/80 with a heart rate in the 60s. LUNGS: Clear. HEART: Regular rhythm, S1, S2. No S3. No rub. ABDOMEN: Soft, nontender. Right radial pulse intact. LAB DATA: Revealed BUN and creatinine 18 and 1.1. Hemoglobin 14.0. Cholesterol of 165, LDL of 93. IMPRESSION: 1. Severe coronary artery disease with totally occluded left anterior descending artery and evidence of ischemic cardiomyopathy, inducible ischemia. 2. Hypertension. 3. Hyperlipidemia. RECOMMENDATION: Patient will be discharged home today and undergo coronary artery bypass grafting in a week or two. . JOEY / ARTURON: [id number] /
[2017-05-02 12:06] VITALS: BP 107/80
--- NOTE | 2017-05-02 16:00 | US ---
EXAMINATION TYPE: US carotid duplex BILAT DATE OF EXAM: 05/02/2017 COMPARISON: NONE CLINICAL HISTORY: Preop cardiac surgery. EXAM MEASUREMENTS: RIGHT: Peak Systolic Velocity (PSV) cm/sec ----- Right CCA: 62.5 ----- Right ICA: 68.0 ----- Right ECA: 36.6 ICA/CCA ratio: 1.1 RIGHT: End Diastole cm/sec ----- Right CCA: 12.9 ----- Right ICA: 21.9 ----- Right ECA: 6.0 LEFT: Peak Systolic Velocity (PSV) cm/sec ----- Left CCA: 77.5 ----- Left ICA: 74.9 ----- Left ECA: 45.0 ICA/CCA ratio: 1.0 LEFT: End Diastole cm/sec ----- Left CCA: 10.2 ----- Left ICA: 32.2 ----- Left ECA: 6.5 VERTEBRALS (direction of flow): Right Vertebral: Antegrade Left Vertebral: Antegrade Rhythm: Normal Tortuous left side vessels. Mild amount of plaque visualized bilateral bulbs. No elevated velocities. IMPRESSION: 1. Atheromatous plaquing without significant flow-limiting stenosis. Criteria for Assigning % of Stenosis / Diameter reduction (Estimation based on the indirect measurements of the internal carotid artery velocities (ICA PSV). 1. Normal (no stenosis)=ICA PSV < 125 cm/s: ratio < 2.0: ICA EDV<40 cm/s. 2. Less than 50% stenosis=ICA PSV < 125 cm/s: ratio < 2.0: ICA EDV<40 cm/s. 3. 50 to 69% stenosis=ICA PSV of 125 to 230 cm/s: ration 2.0 ? 4.0: ICA EDV 40-100 cm/s. 4. Greater than 70% stenosis to near occlusion= ICA PSV > 230 cm/s: ratio > 4.0: ICA EDV > 100 cm/s. 5. Near occlusion= ICA PSV velocities may be low or undetectable: variable ratio and ICA EDV. 6. Total occlusion=unable to detect flow.
--- NOTE | 2017-05-02 20:01 | DS ---
DISCHARGE SUMMARY DATE OF SERVICE: 05/02/2017. FINAL DIAGNOSES: 1. Coronary artery disease, status post cardiac catheterization and 3-vessel coronary artery disease. 2. History of positive stress test with cardiomyopathy, severely impaired left ventricular function. 3. Chronic congestive heart failure with chronic systolic dysfunction, ejection fraction 25% to 30%. 4. History of hypertension. 5. Degenerative joint disease. DISCHARGE DISPOSITION: The patient will be discharged in stable condition with guarded prognosis. HISTORY OF PRESENT ILLNESS: This 71-year-old gentleman with a past medical history of multiple medical problems had an abnormal stress test. His cardiac catheterization showed 3-vessel coronary artery disease and cardiothoracic surgery consultation was noted and recommended outpatient followup and possible surgery. Currently the patient is being medically managed and is stable for discharge, per multiple consultants. On examination, vitals are stable. CARDIOVASCULAR SYSTEM: S1, S2 muffled. RESPIRATORY SYSTEM: Breath sounds diminished at the bases. ABDOMEN: Soft. DISCHARGE ADVICE AND MEDICATIONS: 1. Diet is cardiac. 2. Activity limited until followup. 3. Follow up with Dr. Mcknight in 2 to 3 days. 4. Follow up with Cardiology and Cardiothoracic Surgery as advised. 5. Ecotrin 81 mg p.o. daily. 6. Lipitor 80 mg at bedtime. 7. Zestril 10 mg p.o. b.i.d. 8. Lopressor 25 mg p.o. b.i.d. 9. Nitrostat 0.4 sublingually p.r.n. JOEY / ARTURON: [id number] /
--- NOTE | 2017-05-13 09:25 | P.VSCSTY ---
Greater Saphenous Vein Mapping This is bilateral lower extremity greater saphenous vein mapping. Date of service 05/02/2017 Vein quality and ultrasound appearance left leg has been removed. Vein size groin right 11.6 x 11.1 groin left [ ] High thigh right 9.9 x 11.5 high thigh left [ ] Mid thigh right 7.1 x 6.9 mid thigh left [ ] Above-knee right 6.8 x 6.9 above-knee left [ ] Below knee right 7.0 x 7.1 below-knee left Mid calf right 5.9 x 6.5 mid calf left [] Ankle right 5.1 x 4.9 ankle left [] Impression: right leg vein somewhat large for use for coronaries. Otherwise fairly normal looking vein..
--- NOTE | 2017-05-13 09:37 | P.ARTDOP ---
Arterial Doppler LOWER EXTREMITY ARTERIAL DOPPLER: DATE OF SERVICE: 05/02/2017 Reason for study: Pre-CABG. Doppler waveforms: Multiphasic bilaterally throughout. Pulse volume recording: []. Pressure gradients: None. Ankle-brachial indices: Greater than 1 bilaterally. Toe pressures: [] on the right, [] on the left Impression: Normal study.
--- NOTE | 2017-05-13 09:39 | P.ARTDOP ---
Arterial Doppler Bilateral radial artery studies: Doppler segmental pressures show no significant right to left or segmental gradients. Digital plethysmography with radial artery compression show no significant pressure changes. Dimensions on the right proximally 5 x 5.1 mm and distally 3 x 3.5 mm. On the left 2.5 x 2.3 mm proximally and 2.8 x 2.3 mm distally. Impression: Usable bilateral radial arteries as conduit.
== END 2017-05-02 15:50 | disposition home or self-care (01) | DRG 287 ==
LOC: RADUSMAIN 08:22 → 3OBS 11:39 → 6SEL 05-01 12:19 → OBSVTOIN 05-01 14:20
PROVIDERS: ADMIT Family Medicine; ATTEND Family Medicine
DX: I25.10 Atherosclerotic heart disease of native coronary artery without angina pectoris (principal); I11.0 Hypertensive heart disease with heart failure; I25.82 Chronic total occlusion of coronary artery; I50.22 Chronic systolic (congestive) heart failure; Z95.1 Presence of aortocoronary bypass graft; I25.5 Ischemic cardiomyopathy; E78.5 Hyperlipidemia, unspecified; F17.200 Nicotine dependence, unspecified, uncomplicated; I49.3 Ventricular premature depolarization; M19.90 Unspecified osteoarthritis, unspecified site; M81.0 Age-related osteoporosis without current pathological fracture; Z79.82 Long term (current) use of aspirin; Z79.899 Other long term (current) drug therapy; Z82.49 Family history of ischemic heart disease and other diseases of the circulatory system; Z87.01 Personal history of pneumonia (recurrent); Z88.4 Allergy status to anesthetic agent; Z88.0 Allergy status to penicillin
CPT/HCPCS: 71046; 80048; 80053; 80061; 80074; 81003; 83036; 83735; 84443; 85025; 85610; 85730; 87070; 87086; 93017; 93306; 93350; 93458; 93880; 93922; 93923; 93930; 93970; 93979

== ENCOUNTER → 2017-05-09 | Outpatient (CLI) | payer MEDICARE | END | disposition home or self-care (01) | LOC: LABWHC1 13:24 | PROVIDERS: ATTEND Thoracic Surgery (Cardiothoracic Vascular Surgery) | DX: I25.10 Atherosclerotic heart disease of native coronary artery without angina pectoris (principal) | CPT/HCPCS: 36415; 83880; 86850; 86900; 86901; 86920 ==

== ENCOUNTER 2017-05-14 05:41 | Inpatient (IN) | payer MEDICARE ==
[~2017-05-14 05:41] MED LIST: ALBUMIN HUMAN 25% 50 ML IV ONE; ALBUMIN HUMAN 5% 500 ML IVPB ONE; ASPIRIN 325 MG TAB PO ONE; ATORVASTATIN 10 MG TAB PO ONE; CALCIUM CHLORIDE 100 MG/ML 10 ML SYRINGE IV ONE; CARDIOPLEGIC SOLN (K+ 16 MEQ/L 1,000 ML with SODIUM BICARB (1 MEQ/ML) 20 ML, LIDOCAINE ... PERFUSION ONE; CHLORHEXIDINE GLUCONATE 15 ML CUP MUCOUS MEM ONE; CLEVIDIPINE BUTYRATE 25 MG in EMPTY BAG 1 BAG IV ONE; DILTIAZEM 125 MG in SODIUM CHLORIDE 0.9% 100 ML IV ONE; HEPARIN SODIUM 1,000 UN/ML (10ML VL) IV ONE; HEPARIN SODIUM,PORCINE 5,000 UNIT in SODIUM CHLORIDE 0.9% 500 ML IV ONE; INSULIN REGULAR 100 UNIT in SODIUM CHLORIDE 0.9% 100 ML IV ONE; LACTATED RINGERS 1,000 ML IV ONE; MAGNESIUM SULFATE MG 500 MG/ML VIAL IV ONE; MANNITOL 25% 12.5 GM/50 ML VIAL IV ONE; METOPROLOL TARTRATE 12.5 MG TAB PO ONE; MUPIROCIN 2% OINT 22 GM TUBE NASAL ONE; NITROGLYCERIN SL TABS 0.4 MG TAB SUBLINGUAL ONE; NITROGLYCERIN-D5W PMX 25 MG/250 ML BTL IV ONE; NITROGLYCERIN-D5W PMX 50 MG in DEXTROSE/WATER 1 250ML.BAG IV ONE; NOREPINEPHRIN 4 MG-0.9% NS PMX 4 MG/250 ML ML IV ONE; PAPAVERINE 360 MG in SODIUM CHLORIDE 0.9% 90 ML IV ONE; PHENYLEPHRINE 40 MG in SODIUM CHLORIDE 0.9% 250 ML IV ONE; PHENYLEPHRINE-0.9% NACL SYG 1 MG/10 ML SYRINGE IV ONE; PROPOFOL 1,000 MG/100 ML VIAL IV ONE; PROTAMINE SULFATE 10 MG/ML 25 ML VIAL IV ONE; PROTAMINE SULFATE 250 MG in EMPTY BAG 1 BAG IV ONE; SODIUM BICARB 8.4% 50 ML SYR (1 MEQ/ML) IV ONE; SODIUM CHLORIDE 0.9% 1,000 ML IV ONE; TRANEXAMIC ACID 2,000 MG in SODIUM CHLORIDE 0.9% 180 ML IV ONE; ceFAZolin 1,000 MG in SODIUM CHLORIDE 0.9% IRRIGATIO 1,000 ML IRRIGATION ONE; ceFAZolin 2,000 MG in SODIUM CHLORIDE 0.9% 30 ML IVPB ONE; ceFAZolin 3 GM in SODIUM CHLORIDE 0.9% 30 ML IVPB ONE
[2017-05-14] MEDS ORDERED: TRANEXAMIC ACID 1,000 MG/10 ML VIAL ONE (07:34)
[2017-05-14] MEDS ORDERED: ceFAZolin 1,000 MG VIAL ONE (07:34)
[2017-05-14] MEDS ORDERED: ALBUMIN HUMAN 5% 500 ML VIAL IVPB ONE (07:34)
[2017-05-14] MEDS ORDERED: fentaNYL (PF) 50 MCG/ML 2 ML AMP ONE (07:34)
[2017-05-14] MEDS ORDERED: SODIUM CHLORIDE 0.9% 250 ML BAG ONE (07:34)
[2017-05-14] MEDS ORDERED: HEPARIN SODIUM,PORCINE 10,000 UNIT/ML 1 ML VIAL ONE (07:34)
[2017-05-14] MEDS ORDERED: MAGNESIUM SULFATE 4 MEQ/ML 2 ML VIAL ONE (07:34)
[2017-05-14] MEDS ORDERED: PROPOFOL 10 MG/ML 20 ML VIAL IV ONE (07:34)
[2017-05-14] MEDS ORDERED: MIDAZOLAM 2 MG/2 ML VIAL ONE (07:34)
[2017-05-14] MEDS ORDERED: PROTAMINE SULFATE 10 MG/ML 25 ML VIAL IV ONE (07:34)
[2017-05-14] MEDS ORDERED: VECURONIUM 10 MG VIAL IV ONE (07:34)
[2017-05-14] MEDS ORDERED: SODIUM CHLORIDE 0.9% IRRIG 1,000 ML BTL IRRIGATION ONE (07:34)
[2017-05-14] MEDS ORDERED: fentaNYL (PF) 50 MCG/ML 50 ML VIAL ONE (07:34)
[2017-05-14] MEDS ORDERED: DILTIAZEM 125 MG in SODIUM CHLORIDE 0.9% 100 ML IV ONE (08:30)
[2017-05-14] MEDS ORDERED: Magnesium Replacement Protocol 1 EACH MISC MISCELLANE PRN (14:18)
[2017-05-14] MEDS ORDERED: Potassium Replacement Protocol 1 EACH MISC MISCELLANE PRN (14:18)
[2017-05-14] MEDS ORDERED: ALBUMIN HUMAN 5% 250 ML in EMPTY BAG 1 BAG IVPB PRN (14:18)
[2017-05-14] MEDS ORDERED: Phosphorus Replacement Protoco 1 EACH MISC MISCELLANE PRN (14:18)
[2017-05-14] MEDS ORDERED: BENZOCAINE/MENTHOL LOZENG 1 EACH LOZENGE MUCOUS MEM PRN (14:18)
[2017-05-14] MEDS ORDERED: INSULIN REGULAR 100 UNIT in SODIUM CHLORIDE 0.9% 100 ML IV SCH (14:30)
[2017-05-14] MEDS ORDERED: NITROGLYCERIN-D5W PMX 50 MG in DEXTROSE/WATER 1 250ML.BAG IV SCH (14:30)
[2017-05-14] MEDS ORDERED: PROPOFOL 1,000 MG in EMPTY BAG 1 BAG IV SCH (14:30)
--- NOTE | 2017-05-14 14:32 | P.OP ---
Date of Procedure: 05/14/17 Preoperative Diagnosis: Coronary artery disease Postoperative Diagnosis: Same Procedure(s) Performed: Off pump coronary artery bypass grafting 4 with left internal mammary artery graft to LAD, sequential right radial artery graft to first and second obtuse marginal, left radial artery graft to right coronary artery with bilateral endovascular radial artery harvest and FRANCIS by anesthesia Anesthesia: GEO Surgeon: Edwin Lacey Nuclear Medicine Supervisor #1: Fredrick Brown Estimated Blood Loss (ml): 500 IV fluids (ml): 2,000 Urine output (ml): 1,000 Pathology: none sent Condition: stable Disposition: ICU Indications for Procedure: 71-year-old male presented with anginal symptomatology. Cardiac catheterization demonstrated severe left ventricular dysfunction with severe three-vessel coronary artery disease including occlusion of the left anterior descending coronary artery occlusion of the distal circumflex coronary artery. Stress testing was suggestive for reversible ischemia and the patient was recommended to undergo coronary bypass surgery area and he was scheduled electively. Patient had history of vein stripping on the left. Ultrasound of the right saphenous vein demonstrated very very dilated veins not suitable for coronary bypass. Radial artery testing showed good radial arteries with intact ulnar and palmar arches. Was decided to proceed with coronary bypass utilizing the left internal mammary artery and bilateral radial arteries. Operative Findings: Good radial arteries were harvested. The FALK was an excellent conduit. The left ventricle was markedly dilated. The apical region was nearly akinetic. There was trace MR and mild AI by FRANCIS with ejection fraction around 30%. Coronary arteries were severely calcific. Graftable targets were present in the LAD first and second obtuse marginal and distal right coronary artery. Description of Procedure: The patient was electively admitted to the hospital. Internal jugular line and [place]-Ruben catheter were placed in preop holding. The patient was brought to the operating room placed supine on the operating table anesthetized and intubated. Following intubation a right femoral arterial line was placed. Chest abdomen bilateral legs and bilateral upper extremities were sterilely prepped and draped. Bilateral Endo vascular radial artery harvest was performed. On completion of the radial artery harvest, the radial arteries were prepared on the back table while the incisions were closed and the arms were appropriately dressed and tucked at the sides. We then performed midline sternotomy, the left hemisternum was retracted upwards, the left internal mammary artery was harvested on a vascularized pedicle, left intact on its origin from the subclavian and divided distally. The left pleural space was drained with a 32-Slovak chest tube. Standard sternal retractor was placed. Pericardium was opened in the midline and the heart was exposed with pericardial sutures. The patient was systemically heparinized and a CTs were maintained greater than 250 during grafting. The heart was exposed with pericardial sutures and suction stabilization was used during distal anastomosis. We began with the proximal anastomosis for the right radial artery which was taken off the internal mammary artery. The inflow to the internal mammary artery was temporarily occluded after preparing the distal end of the internal mammary artery and flushing it and noting excellent flow. A longitudinal incision was made in the midportion of the FALK just above where it entered the pericardial sac. The right radial artery was anastomosed in side to end fashion off the internal mammary artery with running 7-0 Prolene suture. On completion the anastomosis the inflow to the AFLK was opened good flow was noted at the end of the FALK which was controlled with a bulldog clamp and good flow was noted out the end of the radial. We then proceeded with the FALK to the LAD anastomosis. The LAD was grafted in its midportion where it was a 1.5-1.75 mm vessel. Diffuse disease was present. The LAD was stabilized and opened and blood flow control with a 1.5 mm flow through. Anastomosis was constructed in end-to-side fashion between the FALK and the LAD with running 8- 0 Prolene suture. On completion of the anastomosis the flow through was removed effectively probing the proximal distal portion of the anastomosis. The BRIAN pedicle was tacked surrounding epicardium with 6-0 silk suture. The cord of the anastomosis was noted to expand well with no kinking or contraction and there was more than adequate length on the FALK. Next the partial occlusion clamp was placed on the proximal ascending aorta after assuring good blood pressure control by anesthesia. A 4 mm punch holes created in the ascending aorta and the proximal anastomosis of the left radial artery off the aorta was performed with running 6-0 Prolene suture. On completion of the anastomosis, the partial occlusion clamp was removed and good flow was noted out the end of the radial artery. This was controlled with a bulldog clamp. Radial artery was of more than adequate length to reach the inferior wall of the heart. The inferior wall of the heart was exposed. The distal branches of the right coronary arteries were relatively small. The main body of the right coronary artery was heavily calcified. After the takeoff of the PDA the right coronary artery became soft. It was opened here. It had a 2 mm lumen and blood flow was controlled with a 2 mm flow through. End to side anastomosis between the artery and the distal right coronary artery was performed with running 7-0 Prolene suture. On completion of the anastomosis the flow through was removed effectively probing the proximal distal portion anastomosis. Suture was tied with good result and hemostasis. Inflow was open and good hemostasis was again noted. The graft lay well with more than adequate length. Lateral wall of the heart was exposed. Both the first and second obtuse marginals were graftable. The first obtuse marginal had a tight blockage at its takeoff from the circumflex and the second obtuse marginal was completely occluded after the takeoff of the first obtuse marginal. Gujg-gl-jewa anastomosis was first constructed between the radial artery and the first obtuse marginal. The first obtuse marginal was a 1.5-1.75 mm vessel with minimal disease present. Anastomosis was constructed in [id number] fashion with running 7-0 Prolene suture. A 1.5 mm flow through was used to control flow blood through the first obtuse marginal during the anastomosis. On completion anastomosis the flow through was removed effectively probing the proximal distal portion of the anastomosis. Suture was tied with good result and hemostasis and bulldog clamp was removed from proximal to distal on the radial artery reperfusing the first obtuse marginal. Next the second obtuse marginal was stabilized it was grafted a little more distally it was opened and blood flow control the 1.5 mm flow through. It was a 1.5-1.75 mm vessel with diffuse disease present. It was actually slightly larger than the first obtuse marginal. End-to-side anastomosis between the radial artery and the second obtuse marginal was performed with running 7-0 Prolene suture. On completion anastomosis the flow through was removed 50 probe the proximal distal portion anastomosis suture was tied with good result and hemostasis and the inflow open. Graft lay well with more than adequate length the heart was lowered into anatomic position and heparin was reversed with protamine hemostasis was obtained throughout. Mediastinum was drained with 236-Slovak chest tubes. Sternum was closed with 8 sternal wires. Fascia was closed with 0 Ethibond subcutaneous and subcuticular layers with layers of Vicryl suture. Dry sterile dressings were applied the patient was transferred to the ICU in stable condition.
[2017-05-14] MEDS: DILTIAZEM 125 MG in SODIUM CHLORIDE 0.9% 100 ML IV SCH (15:00)
[2017-05-14] MEDS ORDERED: CALCIUM GLUCONATE 2,000 MG in SODIUM CHLORIDE 0.9% 100 ML IVPB PRN (15:00)
[2017-05-14 15:13] LABS: Glucose,Whole Blood 83 mg/dL (75-99)
[2017-05-14 15:18] LABS: ABG Base Excess -3.7 mmol/L; ABG HCO3 23 mmol/L (21-25); ABG PCO2 51 mmHg (35-45); ABG PH 7.27 (7.35-7.45); ABG PO2 179 mmHg (83-108); ABG TCO2 25 mmol/L (19-24)
[2017-05-14 15:21] LABS: Basophils # (A) 0.1 k/uL (0-0.2); Basophils % (A) 0 %; Eosinophils # (A) 0.2 k/uL (0-0.7); Eosinophils % (A) 2 %; HCT 39.3 % (39.0-53.0); HGB 12.5 gm/dL (13.0-17.5); Lymphocytes # (A) 1.4 k/uL (1.0-4.8); Lymphocytes % (A) 13 %; MCH 30.9 pg (25.0-35.0); MCHC 31.7 g/dL (31.0-37.0); MCV 97.4 fL (80.0-100.0); Mean Platelet Volume 7.2; Monocytes # (A) 0.6 k/uL (0-1.0); Monocytes % (A) 6 %; Neutrophils # (A) 8.8 k/uL (1.3-7.7); Neutrophils % (A) 79 %; Platelet Count 125 k/uL (150-450); RBC 4.03 m/uL (4.30-5.90); RDW 12.7 % (11.5-15.5); WBC 11.2 k/uL (3.8-10.6)
[2017-05-14] MEDS: IPRATROPIUM-ALBUTEROL 3 ML NEB INHALATION SCH ×2 (15:22→20:32)
[2017-05-14 15:30] LABS: Ionized Calcium 5.3 mg/dL (4.5-5.3)
[2017-05-14 15:31] LABS: INR 1.3 (<1.2); Prothrombin Time 12.4 sec (9.0-12.0)
[2017-05-14 15:40] LABS: ALT 26 U/L (21-72); AST 25 U/L (17-59); Albumin 3.4 g/dL (3.5-5.0); Alkaline Phosphatase 28 U/L (38-126); Anion Gap 7 mmol/L; Blood Urea Nitrogen 16 mg/dL (9-20); Calcium 8.7 mg/dL (8.4-10.2); Carbon Dioxide 24 mmol/L (22-30); Chloride 108 mmol/L (98-107); Glucose 100 mg/dL (74-99); Magnesium 1.7 mg/dL (1.6-2.3); Potassium 4.6 mmol/L (3.5-5.1); Sodium 139 mmol/L (137-145); Total Bilirubin 0.9 mg/dL (0.2-1.3); Total Protein 5.1 g/dL (6.3-8.2)
[2017-05-14] MEDS: CLEVIDIPINE BUTYRATE 25 MG in EMPTY BAG 1 BAG IV SCH (15:45)
[2017-05-14 15:59] LABS: Glucose,Whole Blood 90 mg/dL (75-99)
--- NOTE | 2017-05-14 16:05 | XR ---
EXAMINATION TYPE: XR chest 1V portable DATE OF EXAM: 05/14/2017 COMPARISON: Prior chest x-ray 05/02/2017 HISTORY: Postop cardiac surgery TECHNIQUE: Single frontal view of the chest is obtained. FINDINGS: Patient is post median sternotomy. Endotracheal tube, NG tube, right jugular central venou s sheath and coaxial Heart [place]-Rubne catheter, left chest tube, median sternal drain have been placed in th e interval. Subcutaneous emphysema is present. Basilar atelectatic changes, possibly small effusions noted, epicardial pacing leads likely present, there are overlying cardiac leads. Small apical pneumo thorax present on the left. Heart size may be accentuated by rotation. Mediastinal widening may be po stoperative. IMPRESSION: Postoperative findings, basilar atelectasis, small left apical pneumothorax suspected. F ollow-up recommended.
[2017-05-14] MEDS: LACTATED RINGERS 1,000 ML IV SCH (16:11)
[2017-05-14] MEDS: ceFAZolin IN SWFI 2 GM/20 ML SYRINGE IVP SCH (16:12)
[2017-05-14] MEDS: MAGNESIUM SULFATE-D5W PMX 1 GM in DEXTROSE/WATER 1 100ML.BAG IVPB SCH ×2 (16:49→18:00)
--- NOTE | 2017-05-14 16:51 | P.CNPUL ---
History of Present Illness Consult date: 05/14/17 Requesting physician: Edwin Lacey Reason for consult: other (Patient is status post CABG, presently on mechanical ventilation.) Chief complaint: Severe coronary artery disease, status post CABG 4. History of present illness: This is a 71-year-old white male presented initially with anginal symptoms, cardiac catheterization done in the last 2 weeks showed severe three-vessel disease, including occlusion of the left anterior descending coronary artery, occlusion of the distal circumflex coronary artery. Stress testing was suggestive of reversible ischemia, and the patient was advised to undergo CABG which was done today electively. Patient underwent FALK to LAD, sequential right radial artery graft to the first and second obtuse marginal, left radial artery graft to the right coronary artery and bilateral endovascular radial artery harvest and FRANCIS by anesthesia. Postoperatively, patient is on mechanical ventilation, and this consult was initiated. His last cardiac catheterization was done on 05/01/2017. His previous cardiac workup showed LV dysfunction with ejection fraction of 25-30%. Review of Systems ROS unobtainable: due to endotracheal tube Past Medical History Past Medical History: Coronary Artery Disease (CAD), Chest Pain / Angina, Hypertension, Pneumonia Additional Past Medical History / Comment(s): PAST HX OF RECURRENT LEFT LEG ULCER X3 History of Any Multi-Drug Resistant Organisms: None Reported Past Surgical History: Heart Catheterization Additional Past Surgical History / Comment(s): STATES PROCEDURE TO IMPROVE CIRCULATION LEFT LEG DONE AT DRS OFFICE. Past Anesthesia/Blood Transfusion Reactions: No Reported Reaction Additional Past Anesthesia/Blood Transfusion Reaction / Comment(s): PT STATES HE HAS NOT RECEIVED ANESTHESIA Past Psychological History: No Psychological Hx Reported Smoking Status: Former smoker Past Alcohol Use History: Occasional Additional Past Alcohol Use History / Comment(s): started smoking at age 19(1965 ) and quit 1997, was smoking 1 ppd, occ alcohol Past Drug Use History: None Reported - Past Family History Father Family Medical History: Myocardial Infarction ([place]) Additional Family Medical History / Comment(s): at age 90 from [place] Mother Family Medical History: No Reported History Additional Family Medical History / Comment(s): at age 92 "from old age" Medications and Allergies Home Medications Medication Instructions Recorded Confirmed Type Aspirin EC [Ecotrin Low Dose] 81 mg PO DAILY #30 tablet. 05/02/17 05/14/17 Rx Atorvastatin [Lipitor] 80 mg PO HS #30 tab 05/02/17 05/14/17 Rx Lisinopril [Zestril] 10 mg PO BID #60 tab 05/02/17 05/14/17 Rx Metoprolol Tartrate [Lopressor] 25 mg PO BID #60 tab 05/02/17 05/14/17 Rx Nitroglycerin Sl Tabs [Nitrostat] 0.4 mg SUBLINGUAL Q5M PRN #100 tab 05/02/17 Rx Ibuprofen 600 mg PO ONCE PRN 05/09/17 05/14/17 History Multivitamins, Thera [Multivitamin 1 tab PO DAILY 05/09/17 05/14/17 History (formulary)] Allergies Allergy/AdvReac Type Severity Reaction Status Date / Time Penicillins Allergy Rash/Hives Verified 05/14/17 14:20 Influenza Virus Vaccines AdvReac Unknown DID NOT Verified 05/14/17 14:20 FEEL WELL , PASSED OUT . NOVACAINE Allergy Dyspnea Uncoded 05/09/17 10:43 Physical Exam Vitals: Vital Signs Temp Pulse Pulse Resp BP BP Pulse Ox 05/14/17 15:42 69 05/14/17 15:22 79 05/14/17 15:00 100 05/14/17 06:07 97.9 F 61 18 155/88 120/79 96 Intake and Output 05/14/17 05/14/17 05/14/17 06:59 14:59 22:59 Intake Total 34 Output Total 1950 Balance -1916 Intake: IV 34 Output: Urine 350 Estimated Blood Loss 1600 Physical Exam: Revealed a 71-year-old white male on mechanical ventilation, sedated, in no distress. HEENT:[Neck is supple.] [No neck masses.] [No thyromegaly.] [No JVD.] Endotracheal tube is intact. Chest: [Clear throughout, no crackles, no rhonchi, no wheezes.] Cardiac Exam: [Normal S1 and S2, no S3 gallop, no murmur.] Abdomen: [Soft, nontender, no megaly, no rebound, no guarding, normal bowel sounds.] Extremities: [No clubbing, no edema, no cyanosis.] Neurological Exam: Cannot be assessed, patient is sedated. Psychiatric: Cannot be assessed. Musculoskeletal: Cannot be assessed. Results - Laboratory Findings CBC and BMP: 05/14/17 14:59 05/14/17 14:59 ABG ABG pH 7.27 (7.35-7.45) L 05/14/17 15:16 ABG pCO2 51 mmHg (35-45) H 05/14/17 15:16 ABG pO2 179 mmHg (83-108) H 05/14/17 15:16 ABG O2 Saturation 98.0 % (94-97) H 05/14/17 15:16 PT/INR, D-dimer PT 12.4 sec (9.0-12.0) H 05/14/17 14:59 INR 1.3 (<1.2) H 05/14/17 14:59 Abnormal lab findings: Abnormal Labs 05/09/17 05/14/17 05/14/17 13:30 14:59 14:59 WBC 11.2 H RBC 4.03 L Hgb 12.5 L Plt Count 125 L Neutrophils # 8.8 H PT INR ABG pH ABG pCO2 ABG pO2 ABG Total CO2 ABG O2 Saturation Chloride 108 H Glucose 100 H Alkaline Phosphatase 28 L Total Protein 5.1 L Albumin 3.4 L Crossmatch See Detail 05/14/17 05/14/17 14:59 15:16 WBC RBC Hgb Plt Count Neutrophils # PT 12.4 H INR 1.3 H ABG pH 7.27 L ABG pCO2 51 H ABG pO2 179 H ABG Total CO2 25 H ABG O2 Saturation 98.0 H Chloride Glucose Alkaline Phosphatase Total Protein Albumin Crossmatch - Diagnostic Findings Chest x-ray: image reviewed (Chest x-ray showed basilar atelectasis and possibly a minimal left apical pneumothorax. There is suspected.) Assessment and Plan Assessment: Impression: 1 status post CABG 4, with FALK to LAD, sequential right radial artery graft to first and second obtuse marginal, left radial artery graft to right coronary artery, postoperative day #0. 2 postoperative atelectasis as noted on the chest x-ray, expected finding postoperatively. 3 history of ischemic cardiomyopathy and severely impaired LV function. 4 history of hypertension History of degenerative joint disease. Recommendation: Chest x-ray, ventilator settings, ABG, were all reviewed, his ventilator settings were adjusted, patient will be kept on mechanical ventilation for the next few hours, we'll address weaning and possibly extubation as per protocol in the next few hours. Time with Patient: Less than 30
[2017-05-14 16:57] LABS: Glucose,Whole Blood 79 mg/dL (75-99)
[2017-05-14 18:08] LABS: Glucose,Whole Blood 88 mg/dL (75-99)
[2017-05-14] MEDS: ACETAMINOPHEN IV (For NPO) 1,000 MG in EMPTY BAG 1 BAG IVPB SCH (18:15)
[2017-05-14 18:26] LABS: Basophils # (A) 0.1 k/uL (0-0.2); Basophils % (A) 1 %; Eosinophils # (A) 0.1 k/uL (0-0.7); Eosinophils % (A) 1 %; HCT 38.6 % (39.0-53.0); HGB 12.8 gm/dL (13.0-17.5); Lymphocytes # (A) 0.7 k/uL (1.0-4.8); Lymphocytes % (A) 7 %; MCH 31.2 pg (25.0-35.0); MCHC 33.2 g/dL (31.0-37.0); Mean Platelet Volume 6.8; Monocytes # (A) 0.6 k/uL (0-1.0); Monocytes % (A) 6 %; Neutrophils # (A) 8.2 k/uL (1.3-7.7); Neutrophils % (A) 84 %; Platelet Count 136 k/uL (150-450); RBC 4.11 m/uL (4.30-5.90); RDW 12.9 % (11.5-15.5); WBC 9.8 k/uL (3.8-10.6)
[2017-05-14 19:09] LABS: Glucose,Whole Blood 108 mg/dL (75-99)
[2017-05-14] MEDS: MORPHINE SULFATE 4 MG/ML SYRINGE IVP PRN (19:51)
[2017-05-14 20:11] LABS: Glucose,Whole Blood 122 mg/dL (75-99)
[2017-05-14 20:13] LABS: ABG Base Excess -4.3 mmol/L; ABG HCO3 21 mmol/L (21-25); ABG Oxygen Saturation 98.7 % (94-97); ABG PCO2 34 mmHg (35-45); ABG PH 7.39 (7.35-7.45); ABG PO2 118 mmHg (83-108); ABG TCO2 22 mmol/L (19-24)
[2017-05-14 21:06] LABS: Glucose,Whole Blood 128 mg/dL (75-99)
[2017-05-14 21:32] LABS: Basophils # (A) 0.1 k/uL (0-0.2); Basophils % (A) 1 %; Eosinophils % (A) 0 %; HCT 40.5 % (39.0-53.0); HGB 12.7 gm/dL (13.0-17.5); Lymphocytes # (A) 0.5 k/uL (1.0-4.8); Lymphocytes % (A) 5 %; MCH 30.6 pg (25.0-35.0); MCHC 31.5 g/dL (31.0-37.0); MCV 97.3 fL (80.0-100.0); Mean Platelet Volume 7.2; Monocytes # (A) 0.8 k/uL (0-1.0); Monocytes % (A) 8 %; Neutrophils # (A) 8.7 k/uL (1.3-7.7); Neutrophils % (A) 86 %; Platelet Count 135 k/uL (150-450); RBC 4.16 m/uL (4.30-5.90); RDW 12.8 % (11.5-15.5); WBC 10.1 k/uL (3.8-10.6)
[2017-05-14 21:39] LABS: INR 1.2 (<1.2); Prothrombin Time 11.8 sec (9.0-12.0)
[2017-05-14 21:41] LABS: Ionized Calcium 4.9 mg/dL (4.5-5.3)
[2017-05-14 21:47] LABS: ALT 36 U/L (21-72); AST 35 U/L (17-59); Albumin 3.8 g/dL (3.5-5.0); Alkaline Phosphatase 35 U/L (38-126); Anion Gap 11 mmol/L; Blood Urea Nitrogen 16 mg/dL (9-20); Calcium 8.4 mg/dL (8.4-10.2); Carbon Dioxide 22 mmol/L (22-30); Chloride 105 mmol/L (98-107); Glucose 119 mg/dL (74-99); Magnesium 2.2 mg/dL (1.6-2.3); Phosphorus 3.1 mg/dL (2.5-4.5); Potassium 4.7 mmol/L (3.5-5.1); Sodium 138 mmol/L (137-145); Total Bilirubin 0.9 mg/dL (0.2-1.3); Total Protein 5.6 g/dL (6.3-8.2)
[2017-05-14] MEDS: ONDANSETRON 4 MG/2 ML VIAL IVP PRN (21:55)
[2017-05-14 22:17] LABS: Glucose,Whole Blood 140 mg/dL (75-99)
[2017-05-14 23:31] LABS: Glucose,Whole Blood 119 mg/dL (75-99)
[2017-05-15] MEDS: ceFAZolin IN SWFI 2 GM/20 ML SYRINGE IVP SCH ×2 (00:02→09:21)
[2017-05-15] MEDS: ACETAMINOPHEN IV (For NPO) 1,000 MG in EMPTY BAG 1 BAG IVPB SCH ×4 (00:02→19:00)
[2017-05-15] MEDS: HEPARIN SODIUM,PORCINE 5,000 UNIT/ML 1 ML VIAL SQ SCH ×3 (00:03→17:27)
[2017-05-15 00:16] LABS: Glucose,Whole Blood 54 mg/dL (75-99)
[2017-05-15 00:16] LABS: Glucose,Whole Blood 123 mg/dL (75-99)
[2017-05-15 01:13] LABS: Glucose,Whole Blood 129 mg/dL (75-99)
[2017-05-15] MEDS: DILTIAZEM 125 MG in SODIUM CHLORIDE 0.9% 100 ML IV SCH (02:53)
[2017-05-15 03:04] LABS: Glucose,Whole Blood 95 mg/dL (75-99)
[2017-05-15] MEDS: IPRATROPIUM-ALBUTEROL 3 ML NEB INHALATION PRN ×2 (03:11→07:42)
[2017-05-15] MEDS: MORPHINE SULFATE 4 MG/ML SYRINGE IVP PRN (03:22)
[2017-05-15 04:21] LABS: Glucose,Whole Blood 117 mg/dL (75-99)
[2017-05-15 05:05] LABS: Glucose,Whole Blood 110 mg/dL (75-99)
[2017-05-15 05:38] LABS: Basophils % (A) 0 %; Eosinophils % (A) 0 %; HCT 38.1 % (39.0-53.0); HGB 12.2 gm/dL (13.0-17.5); Lymphocytes # (A) 0.9 k/uL (1.0-4.8); Lymphocytes % (A) 9 %; MCH 31.2 pg (25.0-35.0); MCV 97.3 fL (80.0-100.0); Mean Platelet Volume 7.2; Monocytes # (A) 0.7 k/uL (0-1.0); Monocytes % (A) 7 %; Neutrophils # (A) 8.1 k/uL (1.3-7.7); Neutrophils % (A) 83 %; Platelet Count 125 k/uL (150-450); RBC 3.92 m/uL (4.30-5.90); WBC 9.8 k/uL (3.8-10.6)
[2017-05-15 05:51] LABS: Ionized Calcium 4.7 mg/dL (4.5-5.3)
[2017-05-15 05:54] LABS: INR 1.3 (<1.2); Partial Thromboplastin Time 25.6 sec (22.0-30.0); Prothrombin Time 12.2 sec (9.0-12.0)
[2017-05-15 06:03] LABS: ALT 34 U/L (21-72); AST 33 U/L (17-59); Albumin 3.5 g/dL (3.5-5.0); Alkaline Phosphatase 35 U/L (38-126); Anion Gap 12 mmol/L; Blood Urea Nitrogen 16 mg/dL (9-20); Calcium 8.4 mg/dL (8.4-10.2); Carbon Dioxide 23 mmol/L (22-30); Chloride 105 mmol/L (98-107); Glucose 116 mg/dL (74-99); Magnesium 2.1 mg/dL (1.6-2.3); Potassium 4.6 mmol/L (3.5-5.1); Sodium 140 mmol/L (137-145); Total Bilirubin 0.8 mg/dL (0.2-1.3); Total Protein 5.3 g/dL (6.3-8.2)
[2017-05-15 06:56] LABS: Glucose,Whole Blood 117 mg/dL (75-99)
--- NOTE | 2017-05-15 07:50 | XR ---
EXAMINATION TYPE: XR chest 1V portable DATE OF EXAM: 05/15/2017 Comparison: 05/14/2017 Clinical History: 71-year-old male Post Operative Cardiac Surgery Findings: Right IJ [place] catheter is present with tip in the proximal right main pulmonary artery. Mediasti nal drains are present. Basilar left-sided chest tube is present. Previous question left apical pneum othorax not seen currently. Median sternotomy wires and post-CABG clips. Heart mildly enlarged. Mild interstitial prominence similar. Small left effusion with adjacent left basilar opacity. Impression: 1. Left chest tube remains in place. The previous questioned left apical pneumothorax no longer seen. 2. Some hypoventilatory changes. Continued small left effusion with adjacent atelectasis and/or conso lidation.
[2017-05-15 08:17] LABS: Glucose,Whole Blood 123 mg/dL (75-99)
[2017-05-15] MEDS ORDERED: PANTOPRAZOLE 40 MG/10 ML VIAL IVP SCH (09:00)
[2017-05-15 09:06] LABS: Glucose,Whole Blood 110 mg/dL (75-99)
[2017-05-15] MEDS: METOPROLOL TARTRATE 12.5 MG TAB PO SCH ×2 (09:07→20:51)
[2017-05-15] MEDS: ATORVASTATIN 40 MG TAB PO SCH (09:07)
[2017-05-15] MEDS: ASPIRIN 325 MG TAB PO SCH (09:07)
[2017-05-15] MEDS: CLOPIDOGREL 75 MG TAB PO SCH (09:07)
[2017-05-15] MEDS: amLODIPine 5 MG TAB PO SCH (09:21)
[2017-05-15] MEDS ORDERED: ATROPINE SULFATE 0.1 MG/ML 10ML SYRINGE ONE ×2 (09:56→10:54)
[2017-05-15 10:06] VITALS: BMI 39.7
--- NOTE | 2017-05-15 10:16 | P.CONS ---
History of Present Illness - History of Present Illness 71-year-old male is post CABG 4. Patient has been successfully extubated patient is awake and alert. Patient was found to have coronary disease following routine physical cardiac cath showed severe three-vessel disease. The cardiomyopathy with impaired LV function with ejection fraction 30% Review of Systems Cardiovascular: Reports chest pain Past Medical History Past Medical History: Coronary Artery Disease (CAD), Chest Pain / Angina, Hypertension, Pneumonia Additional Past Medical History / Comment(s): PAST HX OF RECURRENT LEFT LEG ULCER X3 History of Any Multi-Drug Resistant Organisms: None Reported Past Surgical History: Heart Catheterization Additional Past Surgical History / Comment(s): STATES PROCEDURE TO IMPROVE CIRCULATION LEFT LEG DONE AT DRS OFFICE. Past Anesthesia/Blood Transfusion Reactions: No Reported Reaction Additional Past Anesthesia/Blood Transfusion Reaction / Comm: PT STATES HE HAS NOT RECEIVED ANESTHESIA Past Psychological History: No Psychological Hx Reported Smoking Status: Former smoker Past Alcohol Use History: Occasional Additional Past Alcohol Use History / Comment(s): started smoking at age 19(1964 ) and quit 1997, was smoking 1 ppd, occ alcohol Past Drug Use History: None Reported - Past Family History Father Family Medical History: Myocardial Infarction ([place]) Additional Family Medical History / Comment(s): at age 90 from [place] Mother Family Medical History: No Reported History Additional Family Medical History / Comment(s): at age 92 "from old age" Medications and Allergies Home Medications Medication Instructions Recorded Confirmed Type Aspirin EC [Ecotrin Low Dose] 81 mg PO DAILY #30 tablet. 05/02/17 05/14/17 Rx Atorvastatin [Lipitor] 80 mg PO HS #30 tab 05/02/17 05/14/17 Rx Lisinopril [Zestril] 10 mg PO BID #60 tab 05/02/17 05/14/17 Rx Metoprolol Tartrate [Lopressor] 25 mg PO BID #60 tab 05/02/17 05/14/17 Rx Nitroglycerin Sl Tabs [Nitrostat] 0.4 mg SUBLINGUAL Q5M PRN #100 tab 05/02/17 Rx Ibuprofen 600 mg PO ONCE PRN 05/09/17 05/14/17 History Multivitamins, Thera [Multivitamin 1 tab PO DAILY 05/09/17 05/14/17 History (formulary)] Allergies Allergy/AdvReac Type Severity Reaction Status Date / Time Penicillins Allergy Rash/Hives Verified 05/14/17 14:20 Influenza Virus Vaccines AdvReac Unknown DID NOT Verified 05/14/17 14:20 FEEL WELL , PASSED OUT . [place]INE Allergy Dyspnea Uncoded 05/09/17 10:43 Physical Exam Vitals: Vital Signs Pulse Resp Pulse Ox 05/15/17 09:00 67 10 L 94 L 05/15/17 08:30 67 18 93 L 05/15/17 08:00 69 19 93 L 05/15/17 07:53 63 05/15/17 07:45 62 05/15/17 07:30 62 18 94 L 05/15/17 07:00 61 15 94 L 05/15/17 06:30 68 25 H 95 05/15/17 06:00 64 19 95 05/15/17 05:30 60 16 96 05/15/17 05:00 60 14 95 05/15/17 04:30 61 16 95 05/15/17 04:00 65 15 96 05/15/17 03:30 63 15 93 L 05/15/17 03:22 62 05/15/17 03:16 63 05/15/17 03:00 62 15 94 L 05/15/17 02:30 64 16 95 05/15/17 02:00 64 16 95 05/15/17 01:30 70 18 95 05/15/17 01:00 68 16 94 L 05/15/17 00:30 70 16 95 05/15/17 00:00 73 18 95 05/14/17 23:30 75 21 95 05/14/17 23:00 75 17 95 05/14/17 22:30 74 15 96 05/14/17 22:00 70 24 92 L 05/14/17 21:30 74 18 95 05/14/17 21:00 78 17 96 05/14/17 20:31 96 05/14/17 20:30 81 24 94 L 05/14/17 20:15 78 14 98 05/14/17 20:00 85 24 98 05/14/17 19:45 83 25 H 98 05/14/17 19:30 80 22 98 05/14/17 19:15 72 15 99 05/14/17 19:00 71 99 05/14/17 18:45 78 97 05/14/17 18:30 76 18 98 05/14/17 18:15 70 16 98 05/14/17 18:00 70 14 98 05/14/17 17:45 70 14 98 05/14/17 17:30 69 14 98 05/14/17 17:15 71 18 97 05/14/17 17:00 68 19 99 05/14/17 16:45 69 14 99 05/14/17 16:30 69 15 98 05/14/17 16:15 69 14 97 05/14/17 16:00 69 20 99 05/14/17 15:45 69 14 97 05/14/17 15:42 69 05/14/17 15:30 79 14 100 05/14/17 15:22 79 05/14/17 15:15 79 14 98 05/14/17 15:00 120 H 14 99 Intake and Output 05/14/17 05/15/17 05/15/17 22:59 06:59 14:59 Intake Total 896.5 969.759 206 Output Total 767 546 132 Balance 129.5 423.759 74 Intake: IV 883.5 785.5 106 ACETAMINOPHEN IV (For NPO 200 ) 1,000 mg In Empty Bag 1 bag @ 400 mls/hr IVPB Q6HR [facility] Rx#:[id number] Albumin Human 5% 250 ml 250 In Empty Bag 1 bag @ 250 mls/hr IVPB Q1HR PRN Rx#: [id number] CO/CI 160 50 Diltiazem 125 mg In 15 45 Sodium Chloride 0.9% 100 ml @ 5 MG/HR 5 mls/hr IV .Q24H [facility] Rx#:[id number] Lactated Ringers 1,000 ml 400 450 100 @ 20 mls/hr IV .Q24H [facility] Rx#:[id number] Nitroglycerin-D5w Pmx 50 4.5 13.5 mg In Dextrose/Water 1 250ml.bag @ Per Protocol IV ONCE [facility] Rx#:[id number] pressure bag 54 27 6 Intake, IV Titration 13 64.259 Amount Clevidipine Butyrate 25 13 mg In Empty Bag 1 bag @ 1 MG/HR 2 mls/hr IV .Q24H [facility] Rx#:[id number] Diltiazem 125 mg In 59.417 Sodium Chloride 0.9% 100 ml @ 5 MG/HR 5 mls/hr IV .Q24H [facility] Rx#:[id number] Insulin Regular 100 unit 4.842 In Sodium Chloride 0.9% 100 ml @ Per Protocol IV .Q0M [facility] Rx#:[id number] Oral 120 100 Output: Chest Tube Drainage 369 270 50 Chest Tube Left Pleural/ 369 270 50 Mediastinal Drainage 0 0 0 Right Arm 0 0 0 Urine 398 276 82 Other: Voiding Method Indwelling Catheter Indwelling Catheter Indwelling Catheter Weight 118.7 kg 118.7 kg Patient Weight 05/16/17 06:59 Weight 118.7 kg ABP, PAP, CO, CI - Last 8 Hours Arterial Blood Pressure 118/56 Arterial Blood Pressure 121/58 Arterial Blood Pressure 113/52 Arterial Blood Pressure 121/59 Arterial Blood Pressure 114/57 Arterial Blood Pressure 139/72 Arterial Blood Pressure 131/68 Arterial Blood Pressure 115/61 Arterial Blood Pressure 118/65 Arterial Blood Pressure 120/63 Arterial Blood Pressure 124/66 Arterial Blood Pressure 118/62 Arterial Blood Pressure 106/55 Arterial Blood Pressure 112/59 Pulmonary Artery Pressure 45/22 Pulmonary Artery Pressure 46/23 Pulmonary Artery Pressure 44/22 Pulmonary Artery Pressure 45/25 Pulmonary Artery Pressure 49/26 Pulmonary Artery Pressure 49/28 Pulmonary Artery Pressure 48/28 Pulmonary Artery Pressure 49/29 Pulmonary Artery Pressure 49/27 Pulmonary Artery Pressure 52/30 Pulmonary Artery Pressure 47/28 Pulmonary Artery Pressure 41/24 Pulmonary Artery Pressure 39/25 Cardiac Output 5.1 Cardiac Output 5.1 Cardiac Output 5.1 Cardiac Output 5.1 Cardiac Output 5.1 Cardiac Output 5.1 Cardiac Output 5.1 Cardiac Output 5.1 Cardiac Output 5.1 Cardiac Output 6.4 Cardiac Output 6.4 Cardiac Output 6.4 Cardiac Output 6.4 Cardiac Index 2.3 - Constitutional General appearance: mild distress - EENT Eyes: PERRLA Ears: bilateral: normal - Neck Neck: normal ROM - Respiratory Respiratory: bilateral: CTA - Cardiovascular Rhythm: regular - Gastrointestinal General gastrointestinal: soft - Integumentary Integumentary: normal - Neurologic Neurologic: CNII-XII intact - Psychiatric Psychiatric: A&O x's 3, appropriate affect, intact judgment & insight Results CBC & Chem 7: 05/15/17 05:05 05/15/17 05:05 Labs: Abnormal Lab Results - Last 24 Hours (Table) 05/09/17 05/14/17 05/14/17 Range/Units 13:30 14:59 14:59 WBC 11.2 H (3.8-10.6) k/uL RBC 4.03 L (4.30-5.90) m/uL Hgb 12.5 L (13.0-17.5) gm/dL Hct (39.0-53.0) % Plt Count 125 L (150-450) k/uL Neutrophils # 8.8 H (1.3-7.7) k/uL Lymphocytes # (1.0-4.8) k/uL PT (9.0-12.0) sec INR (<1.2) ABG pH (7.35-7.45) ABG pCO2 (35-45) mmHg ABG pO2 (83-108) mmHg ABG Total CO2 (19-24) mmol/L ABG O2 Saturation (94-97) % Chloride 108 H (98-107) mmol/L Glucose 100 H (74-99) mg/dL POC Glucose (mg/dL) (75-99) mg/dL Alkaline Phosphatase 28 L (38-126) U/L Total Protein 5.1 L (6.3-8.2) g/dL Albumin 3.4 L (3.5-5.0) g/dL Crossmatch See Detail 05/14/17 05/14/17 05/14/17 Range/Units 14:59 15:16 18:15 WBC (3.8-10.6) k/uL RBC 4.11 L (4.30-5.90) m/uL Hgb 12.8 L (13.0-17.5) gm/dL Hct 38.6 L (39.0-53.0) % Plt Count 136 L (150-450) k/uL Neutrophils # 8.2 H (1.3-7.7) k/uL Lymphocytes # 0.7 L (1.0-4.8) k/uL PT 12.4 H (9.0-12.0) sec INR 1.3 H (<1.2) ABG pH 7.27 L (7.35-7.45) ABG pCO2 51 H (35-45) mmHg ABG pO2 179 H (83-108) mmHg ABG Total CO2 25 H (19-24) mmol/L ABG O2 Saturation 98.0 H (94-97) % Chloride (98-107) mmol/L Glucose (74-99) mg/dL POC Glucose (mg/dL) (75-99) mg/dL Alkaline Phosphatase (38-126) U/L Total Protein (6.3-8.2) g/dL Albumin (3.5-5.0) g/dL Crossmatch 05/14/17 05/14/17 05/14/17 Range/Units 19:07 20:07 20:10 WBC (3.8-10.6) k/uL RBC (4.30-5.90) m/uL Hgb (13.0-17.5) gm/dL Hct (39.0-53.0) % Plt Count (150-450) k/uL Neutrophils # (1.3-7.7) k/uL Lymphocytes # (1.0-4.8) k/uL PT (9.0-12.0) sec INR (<1.2) ABG pH (7.35-7.45) ABG pCO2 34 L (35-45) mmHg ABG pO2 118 H (83-108) mmHg ABG Total CO2 (19-24) mmol/L ABG O2 Saturation 98.7 H (94-97) % Chloride (98-107) mmol/L Glucose (74-99) mg/dL POC Glucose (mg/dL) 108 H 122 H (75-99) mg/dL Alkaline Phosphatase (38-126) U/L Total Protein (6.3-8.2) g/dL Albumin (3.5-5.0) g/dL Crossmatch 05/14/17 05/14/17 05/14/17 Range/Units 21:03 21:15 21:15 WBC (3.8-10.6) k/uL RBC 4.16 L (4.30-5.90) m/uL Hgb 12.7 L (13.0-17.5) gm/dL Hct (39.0-53.0) % Plt Count 135 L (150-450) k/uL Neutrophils # 8.7 H (1.3-7.7) k/uL Lymphocytes # 0.5 L (1.0-4.8) k/uL PT (9.0-12.0) sec INR 1.2 H (<1.2) ABG pH (7.35-7.45) ABG pCO2 (35-45) mmHg ABG pO2 (83-108) mmHg ABG Total CO2 (19-24) mmol/L ABG O2 Saturation (94-97) % Chloride (98-107) mmol/L Glucose (74-99) mg/dL POC Glucose (mg/dL) 128 H (75-99) mg/dL Alkaline Phosphatase (38-126) U/L Total Protein (6.3-8.2) g/dL Albumin (3.5-5.0) g/dL Crossmatch 05/14/17 05/14/17 05/14/17 Range/Units 21:15 22:04 23:28 WBC (3.8-10.6) k/uL RBC (4.30-5.90) m/uL Hgb (13.0-17.5) gm/dL Hct (39.0-53.0) % Plt Count (150-450) k/uL Neutrophils # (1.3-7.7) k/uL Lymphocytes # (1.0-4.8) k/uL PT (9.0-12.0) sec INR (<1.2) ABG pH (7.35-7.45) ABG pCO2 (35-45) mmHg ABG pO2 (83-108) mmHg ABG Total CO2 (19-24) mmol/L ABG O2 Saturation (94-97) % Chloride (98-107) mmol/L Glucose 119 H (74-99) mg/dL POC Glucose (mg/dL) 140 H 119 H (75-99) mg/dL Alkaline Phosphatase 35 L (38-126) U/L Total Protein 5.6 L (6.3-8.2) g/dL Albumin (3.5-5.0) g/dL Crossmatch 05/15/17 05/15/17 05/15/17 Range/Units 00:12 00:14 01:11 WBC (3.8-10.6) k/uL RBC (4.30-5.90) m/uL Hgb (13.0-17.5) gm/dL Hct (39.0-53.0) % Plt Count (150-450) k/uL Neutrophils # (1.3-7.7) k/uL Lymphocytes # (1.0-4.8) k/uL PT (9.0-12.0) sec INR (<1.2) ABG pH (7.35-7.45) ABG pCO2 (35-45) mmHg ABG pO2 (83-108) mmHg ABG Total CO2 (19-24) mmol/L ABG O2 Saturation (94-97) % Chloride (98-107) mmol/L Glucose (74-99) mg/dL POC Glucose (mg/dL) 54 L 123 H 129 H (75-99) mg/dL Alkaline Phosphatase (38-126) U/L Total Protein (6.3-8.2) g/dL Albumin (3.5-5.0) g/dL Crossmatch 05/15/17 05/15/17 05/15/17 Range/Units 04:08 05:03 05:05 WBC (3.8-10.6) k/uL RBC 3.92 L (4.30-5.90) m/uL Hgb 12.2 L (13.0-17.5) gm/dL Hct 38.1 L (39.0-53.0) % Plt Count 125 L (150-450) k/uL Neutrophils # 8.1 H (1.3-7.7) k/uL Lymphocytes # 0.9 L (1.0-4.8) k/uL PT (9.0-12.0) sec INR (<1.2) ABG pH (7.35-7.45) ABG pCO2 (35-45) mmHg ABG pO2 (83-108) mmHg ABG Total CO2 (19-24) mmol/L ABG O2 Saturation (94-97) % Chloride (98-107) mmol/L Glucose (74-99) mg/dL POC Glucose (mg/dL) 117 H 110 H (75-99) mg/dL Alkaline Phosphatase (38-126) U/L Total Protein (6.3-8.2) g/dL Albumin (3.5-5.0) g/dL Crossmatch 05/15/17 05/15/17 05/15/17 Range/Units 05:05 05:05 06:54 WBC (3.8-10.6) k/uL RBC (4.30-5.90) m/uL Hgb (13.0-17.5) gm/dL Hct (39.0-53.0) % Plt Count (150-450) k/uL Neutrophils # (1.3-7.7) k/uL Lymphocytes # (1.0-4.8) k/uL PT 12.2 H (9.0-12.0) sec INR 1.3 H (<1.2) ABG pH (7.35-7.45) ABG pCO2 (35-45) mmHg ABG pO2 (83-108) mmHg ABG Total CO2 (19-24) mmol/L ABG O2 Saturation (94-97) % Chloride (98-107) mmol/L Glucose 116 H (74-99) mg/dL POC Glucose (mg/dL) 117 H (75-99) mg/dL Alkaline Phosphatase 35 L (38-126) U/L Total Protein 5.3 L (6.3-8.2) g/dL Albumin (3.5-5.0) g/dL Crossmatch 05/15/17 05/15/17 Range/Units 08:15 09:04 WBC (3.8-10.6) k/uL RBC (4.30-5.90) m/uL Hgb (13.0-17.5) gm/dL Hct (39.0-53.0) % Plt Count (150-450) k/uL Neutrophils # (1.3-7.7) k/uL Lymphocytes # (1.0-4.8) k/uL PT (9.0-12.0) sec INR (<1.2) ABG pH (7.35-7.45) ABG pCO2 (35-45) mmHg ABG pO2 (83-108) mmHg ABG Total CO2 (19-24) mmol/L ABG O2 Saturation (94-97) % Chloride (98-107) mmol/L Glucose (74-99) mg/dL POC Glucose (mg/dL) 123 H 110 H (75-99) mg/dL Alkaline Phosphatase (38-126) U/L Total Protein (6.3-8.2) g/dL Albumin (3.5-5.0) g/dL Crossmatch Abdominal x-ray: report reviewed Assessment and Plan Plan: Assessment Coronary disease post CABG 4 vessels Postoperative atelectasis Post mechanical ventilation History of hypertension Ischemic cardiomyopathy with severely impaired LV function ejection fraction 30% Plan We'll continue to monitor patient
--- NOTE | 2017-05-15 10:28 | P.PN ---
Subjective Progress Note Date: 05/15/17 Principal diagnosis: Severe triple vessel coronary artery disease. Previous medical history of hypertension, osteoarthritis, remote history of pneumonia, remote history of tobacco abuse, history of vein stripping to his left leg in 2012, family history of coronary artery disease. Obesity. POD #1 off-pump coronary artery bypass graft 4 with the left internal mammary artery to the LAD, sequential right radial artery graft to first and second obtuse marginal, left radial artery graft to right coronary artery with bilateral endovascular radial artery harvest and intraoperative FRANCIS by anesthesia. Patient is currently lying in bed in no acute distress. Was successfully extubated last night yet 8:25 PM. Denies chest pain, shortness of breath. Objective - Vital Signs Vital signs: Vital Signs Temp 97.9 F 05/14/17 06:07 Pulse 67 05/15/17 09:00 Resp 10 L 05/15/17 09:00 BP 120/79 05/14/17 06:07 Pulse Ox 94 L 05/15/17 09:00 Intake & Output 05/14/17 05/15/17 05/15/17 18:59 06:59 18:59 Intake Total 390 1510.259 206 Output Total 2383 880 132 -1992 630.259 74 Weight 118.7 kg 118.7 kg Intake: IV 390 1313.0 106 ACETAMINOPHEN IV (For NPO 200 ) 1,000 mg In Empty Bag 1 bag @ 400 mls/hr IVPB Q6HR [facility] Rx#:[id number] Albumin Human 5% 250 ml 250 In Empty Bag 1 bag @ 250 mls/hr IVPB Q1HR PRN Rx#: [id number] CO/CI 120 90 Diltiazem 125 mg In 60 Sodium Chloride 0.9% 100 ml @ 5 MG/HR 5 mls/hr IV .Q24H ONE Rx#:[id number] Lactated Ringers 1,000 ml 200 650 100 @ 20 mls/hr IV .Q24H [facility] Rx#:[id number] Nitroglycerin-D5w Pmx 50 18.0 mg In Dextrose/Water 1 250ml.bag @ Per Protocol IV ONCE ONE Rx#:[id number] pressure bag 36 45 6 Intake, IV Titration 77.259 Amount Clevidipine Butyrate 25 13 mg In Empty Bag 1 bag @ 1 MG/HR 2 mls/hr IV .Q24H [facility] Rx#:[id number] Diltiazem 125 mg In 59.417 Sodium Chloride 0.9% 100 ml @ 5 MG/HR 5 mls/hr IV .Q24H [facility] Rx#:[id number] Insulin Regular 100 unit 4.842 In Sodium Chloride 0.9% 100 ml @ Per Protocol IV .Q0M [facility] Rx#:[id number] Oral 120 100 Output: Chest Tube Drainage 179 460 50 Chest Tube Left Pleural/ 179 460 50 Mediastinal Drainage 0 0 0 Right Arm 0 0 0 Urine 604 420 82 Estimated Blood Loss 1600 Other: Voiding Method Indwelling Catheter Indwelling Catheter Indwelling Catheter ABP, PAP, CO, CI - Last Documented Arterial Blood Pressure 118/56 Pulmonary Artery Pressure 45/22 Cardiac Output 5.1 Cardiac Index 2.3 - Constitutional General appearance: Present: cooperative, no acute distress, obese - Respiratory Details: Lungs sounds diminished bilaterally. Respirations even, nonlabored. Currently on 5 L nasal cannula oxygen saturation 95%. Left pleural/mediastinal chest tube to -20 cm wall suction, 240 mL serosanguineous drainage overnight, 700 mL since surgery. No air leak present. - Cardiovascular Details: S1, S2 present. Regular rate and rhythm, sinus rhythm on telemetry. Sternum stable. A/V epicardial pacemaker wires present, connected to generator, VVI mode with backup rate 40 bpm. Palpable peripheral pulses bilaterally. No edema present. No calf pain or tenderness noted. Right femoral arterial line, right internal jugular Childress/Cordis present. Last CO/CI 5.1/2.3 on no inotropes. Heart hugger in place with patient demonstrating appropriate use. Antiembolism stockings, SCDs present. - Gastrointestinal Gastrointestinal Comment(s): Abdomen soft, nontender, nondistended. Hypoactive bowel sounds present 4 quadrants. Tolerating diet. - Genitourinary Genitourinary Comment(s): Reagan present draining clear, yellow urine. Output 30-35 mL/h overnight. - Integumentary Integumentary Comment(s): Skin is warm and dry with evidence of good perfusion. Both hands with excellent feeling, good cap refill, skin is warm. Right radial artery site with JULIANE drain present. Bilateral upper extremity is wrapped with Frankie wraps. - Neurologic Neurologic: Present: CNII-XII intact - Musculoskeletal Musculoskeletal: Present: strength equal bilaterally - Psychiatric Psychiatric: Present: A&O x's 3, appropriate affect, intact judgment & insight - Allied health notes Allied health notes reviewed: nursing - Labs CBC & Chem 7: 05/15/17 05:05 05/15/17 05:05 Labs: Abnormal Lab Results - Last 24 Hours (Table) 05/09/17 05/14/17 05/14/17 Range/Units 13:30 14:59 14:59 WBC 11.2 H (3.8-10.6) k/uL RBC 4.03 L (4.30-5.90) m/uL Hgb 12.5 L (13.0-17.5) gm/dL Hct (39.0-53.0) % Plt Count 125 L (150-450) k/uL Neutrophils # 8.8 H (1.3-7.7) k/uL Lymphocytes # (1.0-4.8) k/uL PT (9.0-12.0) sec INR (<1.2) ABG pH (7.35-7.45) ABG pCO2 (35-45) mmHg ABG pO2 (83-108) mmHg ABG Total CO2 (19-24) mmol/L ABG O2 Saturation (94-97) % Chloride 108 H (98-107) mmol/L Glucose 100 H (74-99) mg/dL POC Glucose (mg/dL) (75-99) mg/dL Alkaline Phosphatase 28 L (38-126) U/L Total Protein 5.1 L (6.3-8.2) g/dL Albumin 3.4 L (3.5-5.0) g/dL Crossmatch See Detail 05/14/17 05/14/17 05/14/17 Range/Units 14:59 15:16 18:15 WBC (3.8-10.6) k/uL RBC 4.11 L (4.30-5.90) m/uL Hgb 12.8 L (13.0-17.5) gm/dL Hct 38.6 L (39.0-53.0) % Plt Count 136 L (150-450) k/uL Neutrophils # 8.2 H (1.3-7.7) k/uL Lymphocytes # 0.7 L (1.0-4.8) k/uL PT 12.4 H (9.0-12.0) sec INR 1.3 H (<1.2) ABG pH 7.27 L (7.35-7.45) ABG pCO2 51 H (35-45) mmHg ABG pO2 179 H (83-108) mmHg ABG Total CO2 25 H (19-24) mmol/L ABG O2 Saturation 98.0 H (94-97) % Chloride (98-107) mmol/L Glucose (74-99) mg/dL POC Glucose (mg/dL) (75-99) mg/dL Alkaline Phosphatase (38-126) U/L Total Protein (6.3-8.2) g/dL Albumin (3.5-5.0) g/dL Crossmatch 05/14/17 05/14/17 05/14/17 Range/Units 19:07 20:07 20:10 WBC (3.8-10.6) k/uL RBC (4.30-5.90) m/uL Hgb (13.0-17.5) gm/dL Hct (39.0-53.0) % Plt Count (150-450) k/uL Neutrophils # (1.3-7.7) k/uL Lymphocytes # (1.0-4.8) k/uL PT (9.0-12.0) sec INR (<1.2) ABG pH (7.35-7.45) ABG pCO2 34 L (35-45) mmHg ABG pO2 118 H (83-108) mmHg ABG Total CO2 (19-24) mmol/L ABG O2 Saturation 98.7 H (94-97) % Chloride (98-107) mmol/L Glucose (74-99) mg/dL POC Glucose (mg/dL) 108 H 122 H (75-99) mg/dL Alkaline Phosphatase (38-126) U/L Total Protein (6.3-8.2) g/dL Albumin (3.5-5.0) g/dL Crossmatch 05/14/17 05/14/17 05/14/17 Range/Units 21:03 21:15 21:15 WBC (3.8-10.6) k/uL RBC 4.16 L (4.30-5.90) m/uL Hgb 12.7 L (13.0-17.5) gm/dL Hct (39.0-53.0) % Plt Count 135 L (150-450) k/uL Neutrophils # 8.7 H (1.3-7.7) k/uL Lymphocytes # 0.5 L (1.0-4.8) k/uL PT (9.0-12.0) sec INR 1.2 H (<1.2) ABG pH (7.35-7.45) ABG pCO2 (35-45) mmHg ABG pO2 (83-108) mmHg ABG Total CO2 (19-24) mmol/L ABG O2 Saturation (94-97) % Chloride (98-107) mmol/L Glucose (74-99) mg/dL POC Glucose (mg/dL) 128 H (75-99) mg/dL Alkaline Phosphatase (38-126) U/L Total Protein (6.3-8.2) g/dL Albumin (3.5-5.0) g/dL Crossmatch 05/14/17 05/14/17 05/14/17 Range/Units 21:15 22:04 23:28 WBC (3.8-10.6) k/uL RBC (4.30-5.90) m/uL Hgb (13.0-17.5) gm/dL Hct (39.0-53.0) % Plt Count (150-450) k/uL Neutrophils # (1.3-7.7) k/uL Lymphocytes # (1.0-4.8) k/uL PT (9.0-12.0) sec INR (<1.2) ABG pH (7.35-7.45) ABG pCO2 (35-45) mmHg ABG pO2 (83-108) mmHg ABG Total CO2 (19-24) mmol/L ABG O2 Saturation (94-97) % Chloride (98-107) mmol/L Glucose 119 H (74-99) mg/dL POC Glucose (mg/dL) 140 H 119 H (75-99) mg/dL Alkaline Phosphatase 35 L (38-126) U/L Total Protein 5.6 L (6.3-8.2) g/dL Albumin (3.5-5.0) g/dL Crossmatch 05/15/17 05/15/17 05/15/17 Range/Units 00:12 00:14 01:11 WBC (3.8-10.6) k/uL RBC (4.30-5.90) m/uL Hgb (13.0-17.5) gm/dL Hct (39.0-53.0) % Plt Count (150-450) k/uL Neutrophils # (1.3-7.7) k/uL Lymphocytes # (1.0-4.8) k/uL PT (9.0-12.0) sec INR (<1.2) ABG pH (7.35-7.45) ABG pCO2 (35-45) mmHg ABG pO2 (83-108) mmHg ABG Total CO2 (19-24) mmol/L ABG O2 Saturation (94-97) % Chloride (98-107) mmol/L Glucose (74-99) mg/dL POC Glucose (mg/dL) 54 L 123 H 129 H (75-99) mg/dL Alkaline Phosphatase (38-126) U/L Total Protein (6.3-8.2) g/dL Albumin (3.5-5.0) g/dL Crossmatch 05/15/17 05/15/17 05/15/17 Range/Units 04:08 05:03 05:05 WBC (3.8-10.6) k/uL RBC 3.92 L (4.30-5.90) m/uL Hgb 12.2 L (13.0-17.5) gm/dL Hct 38.1 L (39.0-53.0) % Plt Count 125 L (150-450) k/uL Neutrophils # 8.1 H (1.3-7.7) k/uL Lymphocytes # 0.9 L (1.0-4.8) k/uL PT (9.0-12.0) sec INR (<1.2) ABG pH (7.35-7.45) ABG pCO2 (35-45) mmHg ABG pO2 (83-108) mmHg ABG Total CO2 (19-24) mmol/L ABG O2 Saturation (94-97) % Chloride (98-107) mmol/L Glucose (74-99) mg/dL POC Glucose (mg/dL) 117 H 110 H (75-99) mg/dL Alkaline Phosphatase (38-126) U/L Total Protein (6.3-8.2) g/dL Albumin (3.5-5.0) g/dL Crossmatch 05/15/17 05/15/17 05/15/17 Range/Units 05:05 05:05 06:54 WBC (3.8-10.6) k/uL RBC (4.30-5.90) m/uL Hgb (13.0-17.5) gm/dL Hct (39.0-53.0) % Plt Count (150-450) k/uL Neutrophils # (1.3-7.7) k/uL Lymphocytes # (1.0-4.8) k/uL PT 12.2 H (9.0-12.0) sec INR 1.3 H (<1.2) ABG pH (7.35-7.45) ABG pCO2 (35-45) mmHg ABG pO2 (83-108) mmHg ABG Total CO2 (19-24) mmol/L ABG O2 Saturation (94-97) % Chloride (98-107) mmol/L Glucose 116 H (74-99) mg/dL POC Glucose (mg/dL) 117 H (75-99) mg/dL Alkaline Phosphatase 35 L (38-126) U/L Total Protein 5.3 L (6.3-8.2) g/dL Albumin (3.5-5.0) g/dL Crossmatch 05/15/17 05/15/17 Range/Units 08:15 09:04 WBC (3.8-10.6) k/uL RBC (4.30-5.90) m/uL Hgb (13.0-17.5) gm/dL Hct (39.0-53.0) % Plt Count (150-450) k/uL Neutrophils # (1.3-7.7) k/uL Lymphocytes # (1.0-4.8) k/uL PT (9.0-12.0) sec INR (<1.2) ABG pH (7.35-7.45) ABG pCO2 (35-45) mmHg ABG pO2 (83-108) mmHg ABG Total CO2 (19-24) mmol/L ABG O2 Saturation (94-97) % Chloride (98-107) mmol/L Glucose (74-99) mg/dL POC Glucose (mg/dL) 123 H 110 H (75-99) mg/dL Alkaline Phosphatase (38-126) U/L Total Protein (6.3-8.2) g/dL Albumin (3.5-5.0) g/dL Crossmatch - Imaging and Cardiology Chest x-ray: report reviewed, image reviewed Assessment and Plan (1) Tobacco dependence in remission Current Visit: No Status: Resolved Code(s): F17.201 - NICOTINE DEPENDENCE, UNSPECIFIED, IN REMISSION SNOMED Code(s): 039803095 (2) Coronary artery disease Current Visit: Yes Status: Chronic Code(s): I25.10 - ATHSCL HEART DISEASE OF [place] CORONARY ARTERY W/O ANG PCTRS SNOMED Code(s): 22664462 (3) Hypertension Current Visit: Yes Status: Chronic Code(s): I10 - ESSENTIAL (PRIMARY) HYPERTENSION SNOMED Code(s): 53873576 (4) Osteoarthritis Current Visit: Yes Status: Chronic Code(s): M19.90 - UNSPECIFIED OSTEOARTHRITIS, UNSPECIFIED SITE SNOMED Code(s): 341865510 (5) Obesity (BMI 30-39.9) Current Visit: Yes Status: Chronic Code(s): E66.9 - OBESITY, UNSPECIFIED SNOMED Code(s): 433343330 (6) Family history of heart disease Current Visit: Yes Status: Chronic Code(s): Z82.49 - FAMILY HX OF [place] HEART DIS AND OTH DIS OF THE CIRC SYS SNOMED Code(s): 007148436 Plan: 1. Continue aspirin, statin, Plavix, heparin subcu, beta rosita. Will increase beta rosita therapy as tolerated. 2. Discontinue nitroglycerin drip. Will start Norvasc orally and then discontinue Cardizem drip. 3. Discontinue Childress, femoral arterial line. 4. Wean O2 as tolerated. Encourage incentive spirometry use 10 times every hour while awake. Encourage continued smoking cessation. 5. Increase activity as tolerated, up to chair, ambulate as able. PT/OT/ cardiac rehab following. 6. GI DVT prophylaxis. 7. Will monitor daily labs and x-rays. 8. Insulin drip/blood sugar control per primary care service. 9. Continue Frankie wraps for another 24 hours. 10. More recommendations as patient progresses. Time with Patient: Greater than 30
--- NOTE | 2017-05-15 10:29 | CONS ---
CONSULTATION Javad Mittal is a 71-year-old gentleman who was seen by Dr. House when he presented for a stress test, which was significantly abnormal. He had significant triple-vessel disease and underwent aortocoronary bypass surgery yesterday performed by Dr. Edwin Lacey with a FALK to LAD and a free radial artery graft to the RCA, another free radial artery graft with sequential bypasses to obtuse marginal 1 and 2. The patient has been extubated post procedure. He is hemodynamically stable. He is not on any pressors. At the time of my evaluation, he is quite comfortable. EKG revealed sinus mechanism with more prominent ST-T changes in leads V2 to V5, which were already seen before. PAST MEDICAL HISTORY: Past medical history includes in addition to the recently abnormal stress test, he has hypertension, osteoarthritis, previous history of pneumonia. MEDICATIONS: Medications at home include Zestril 10 mg daily, metoprolol tartrate 25 mg b.i.d., Lipitor 80 mg daily, aspirin 81 mg daily. PHYSICAL EXAMINATION: On examination, blood pressure is 118/70, pulse rate is about 67, sinus. HEENT unremarkable. Fundus was not examined by me. Heart exam reveals S1, S2. There is a pericardial rub audible. Lungs reveal bilateral fair air entry. Abdomen is soft. Lower extremities are wrapped, grossly reveal diminished pulses. Central nervous system grossly within normal limits. IMPRESSION: 1. Status post aortocoronary bypass surgery with 4 grafts. 2. Ischemic cardiomyopathy. 3. Hypertension. 4. Osteoarthritis. RECOMMENDATIONS: I am recommending that we increase the dose of Lipitor to 40 mg daily. Continue all other medications and pursue with incentive spirometry and pulmonary toilet. MMODL / IJN: [id number] /
[2017-05-15 10:41] LABS: Glucose,Whole Blood 115 mg/dL (75-99)
[2017-05-15 12:57] LABS: Glucose,Whole Blood 120 mg/dL (75-99)
[2017-05-15] MEDS ORDERED: MAGNESIUM HYDROXIDE 2,400 MG/10 ML CUP PO PRN (13:20)
[2017-05-15] MEDS ORDERED: BISACODYL 10 MG SUPP RECTAL PRN (13:20)
[2017-05-15 14:13] LABS: Glucose,Whole Blood 119 mg/dL (75-99)
--- NOTE | 2017-05-15 14:47 | P.PN ---
Subjective Progress Note Date: 05/15/17 Principal diagnosis: Status post CABG postoperative day #1 This is a 71-year-old white male presented initially with anginal symptoms, cardiac catheterization done in the last 2 weeks showed severe three-vessel disease, including occlusion of the left anterior descending coronary artery, occlusion of the distal circumflex coronary artery. Stress testing was suggestive of reversible ischemia, and the patient was advised to undergo CABG which was done today electively. Patient underwent FALK to LAD, sequential right radial artery graft to the first and second obtuse marginal, left radial artery graft to the right coronary artery and bilateral endovascular radial artery harvest and FRANCIS by anesthesia. Postoperatively, patient is on mechanical ventilation, and this consult was initiated. His last cardiac catheterization was done on 05/01/2017. His previous cardiac workup showed LV dysfunction with ejection fraction of 25-30%. Patient was reevaluated today on 05/15/2017, doing well, relatively asymptomatic , extubated last night uneventfully. No cough no wheezing no shortness of breath, chest x-ray is showing mostly postoperative changes otherwise unremarkable. Labs were all reviewed. Objective - Vital Signs Vital signs: Vital Signs Temp 98.6 F 05/15/17 12:00 Pulse 60 05/15/17 14:00 Resp 16 05/15/17 14:00 BP 94/58 05/15/17 14:00 Pulse Ox 94 L 05/15/17 14:00 Intake & Output 05/14/17 05/15/17 05/15/17 18:59 06:59 18:59 Intake Total 390 1510.259 371 Output Total 2383 880 407 -1992 630.259 -36 Weight 118.7 kg 118.7 kg Intake: IV 390 1313.0 271 ACETAMINOPHEN IV (For NPO 200 ) 1,000 mg In Empty Bag 1 bag @ 400 mls/hr IVPB Q6HR [facility] Rx#:[id number] Albumin Human 5% 250 ml 250 In Empty Bag 1 bag @ 250 mls/hr IVPB Q1HR PRN Rx#: [id number] CO/CI 120 90 Diltiazem 125 mg In 60 Sodium Chloride 0.9% 100 ml @ 5 MG/HR 5 mls/hr IV .Q24H ONE Rx#:[id number] Lactated Ringers 1,000 ml 200 650 250 @ 20 mls/hr IV .Q24H [facility] Rx#:[id number] Nitroglycerin-D5w Pmx 50 18.0 mg In Dextrose/Water 1 250ml.bag @ Per Protocol IV ONCE ONE Rx#:[id number] pressure bag 36 45 21 Intake, IV Titration 77.259 Amount Clevidipine Butyrate 25 13 mg In Empty Bag 1 bag @ 1 MG/HR 2 mls/hr IV .Q24H [facility] Rx#:[id number] Diltiazem 125 mg In 59.417 Sodium Chloride 0.9% 100 ml @ 5 MG/HR 5 mls/hr IV .Q24H [facility] Rx#:[id number] Insulin Regular 100 unit 4.842 In Sodium Chloride 0.9% 100 ml @ Per Protocol IV .Q0M [facility] Rx#:[id number] Oral 120 100 Output: Chest Tube Drainage 179 460 170 Chest Tube Left Pleural/ 179 460 170 Mediastinal Drainage 0 0 0 Right Arm 0 0 0 Urine 604 420 237 Estimated Blood Loss 1600 Other: Voiding Method Indwelling Catheter Indwelling Catheter Indwelling Catheter ABP, PAP, CO, CI - Last Documented Arterial Blood Pressure 119/53 Pulmonary Artery Pressure 45/22 Cardiac Output 5.1 Cardiac Index 2.3 - Exam Physical Exam: Revealed a 71-year-old white male in no distress. On nasal cannula, off mechanical ventilation. HEENT:[Neck is supple.] [No neck masses.] [No thyromegaly.] [No JVD.] Chest: [Diminished breath sounds and crackles at the bases, no rhonchi and no wheezes, no chest wall tenderness, chest is stable.] Cardiac Exam: [Normal S1 and S2, no S3 gallop, no murmur.] Abdomen: [Soft, nontender, no megaly, no rebound, no guarding, normal bowel sounds.] Extremities: [No clubbing, no edema, no cyanosis.] Neurological Exam: [No focal neurologic deficit.] Lymphatics: No lymphadenopathy. Psychiatric: Normal mood affect and mental status examination. - Labs CBC & Chem 7: 05/15/17 05:05 05/15/17 05:05 Labs: Abnormal Lab Results - Last 24 Hours (Table) 05/09/17 05/14/17 05/14/17 Range/Units 13:30 14:59 14:59 WBC 11.2 H (3.8-10.6) k/uL RBC 4.03 L (4.30-5.90) m/uL Hgb 12.5 L (13.0-17.5) gm/dL Hct (39.0-53.0) % Plt Count 125 L (150-450) k/uL Neutrophils # 8.8 H (1.3-7.7) k/uL Lymphocytes # (1.0-4.8) k/uL PT (9.0-12.0) sec INR (<1.2) ABG pH (7.35-7.45) ABG pCO2 (35-45) mmHg ABG pO2 (83-108) mmHg ABG Total CO2 (19-24) mmol/L ABG O2 Saturation (94-97) % Chloride 108 H (98-107) mmol/L Glucose 100 H (74-99) mg/dL POC Glucose (mg/dL) (75-99) mg/dL Alkaline Phosphatase 28 L (38-126) U/L Total Protein 5.1 L (6.3-8.2) g/dL Albumin 3.4 L (3.5-5.0) g/dL Crossmatch See Detail 05/14/17 05/14/17 05/14/17 Range/Units 14:59 15:16 18:15 WBC (3.8-10.6) k/uL RBC 4.11 L (4.30-5.90) m/uL Hgb 12.8 L (13.0-17.5) gm/dL Hct 38.6 L (39.0-53.0) % Plt Count 136 L (150-450) k/uL Neutrophils # 8.2 H (1.3-7.7) k/uL Lymphocytes # 0.7 L (1.0-4.8) k/uL PT 12.4 H (9.0-12.0) sec INR 1.3 H (<1.2) ABG pH 7.27 L (7.35-7.45) ABG pCO2 51 H (35-45) mmHg ABG pO2 179 H (83-108) mmHg ABG Total CO2 25 H (19-24) mmol/L ABG O2 Saturation 98.0 H (94-97) % Chloride (98-107) mmol/L Glucose (74-99) mg/dL POC Glucose (mg/dL) (75-99) mg/dL Alkaline Phosphatase (38-126) U/L Total Protein (6.3-8.2) g/dL Albumin (3.5-5.0) g/dL Crossmatch 05/14/17 05/14/17 05/14/17 Range/Units 19:07 20:07 20:10 WBC (3.8-10.6) k/uL RBC (4.30-5.90) m/uL Hgb (13.0-17.5) gm/dL Hct (39.0-53.0) % Plt Count (150-450) k/uL Neutrophils # (1.3-7.7) k/uL Lymphocytes # (1.0-4.8) k/uL PT (9.0-12.0) sec INR (<1.2) ABG pH (7.35-7.45) ABG pCO2 34 L (35-45) mmHg ABG pO2 118 H (83-108) mmHg ABG Total CO2 (19-24) mmol/L ABG O2 Saturation 98.7 H (94-97) % Chloride (98-107) mmol/L Glucose (74-99) mg/dL POC Glucose (mg/dL) 108 H 122 H (75-99) mg/dL Alkaline Phosphatase (38-126) U/L Total Protein (6.3-8.2) g/dL Albumin (3.5-5.0) g/dL Crossmatch 05/14/17 05/14/17 05/14/17 Range/Units 21:03 21:15 21:15 WBC (3.8-10.6) k/uL RBC 4.16 L (4.30-5.90) m/uL Hgb 12.7 L (13.0-17.5) gm/dL Hct (39.0-53.0) % Plt Count 135 L (150-450) k/uL Neutrophils # 8.7 H (1.3-7.7) k/uL Lymphocytes # 0.5 L (1.0-4.8) k/uL PT (9.0-12.0) sec INR 1.2 H (<1.2) ABG pH (7.35-7.45) ABG pCO2 (35-45) mmHg ABG pO2 (83-108) mmHg ABG Total CO2 (19-24) mmol/L ABG O2 Saturation (94-97) % Chloride (98-107) mmol/L Glucose (74-99) mg/dL POC Glucose (mg/dL) 128 H (75-99) mg/dL Alkaline Phosphatase (38-126) U/L Total Protein (6.3-8.2) g/dL Albumin (3.5-5.0) g/dL Crossmatch 05/14/17 05/14/17 05/14/17 Range/Units 21:15 22:04 23:28 WBC (3.8-10.6) k/uL RBC (4.30-5.90) m/uL Hgb (13.0-17.5) gm/dL Hct (39.0-53.0) % Plt Count (150-450) k/uL Neutrophils # (1.3-7.7) k/uL Lymphocytes # (1.0-4.8) k/uL PT (9.0-12.0) sec INR (<1.2) ABG pH (7.35-7.45) ABG pCO2 (35-45) mmHg ABG pO2 (83-108) mmHg ABG Total CO2 (19-24) mmol/L ABG O2 Saturation (94-97) % Chloride (98-107) mmol/L Glucose 119 H (74-99) mg/dL POC Glucose (mg/dL) 140 H 119 H (75-99) mg/dL Alkaline Phosphatase 35 L (38-126) U/L Total Protein 5.6 L (6.3-8.2) g/dL Albumin (3.5-5.0) g/dL Crossmatch 05/15/17 05/15/17 05/15/17 Range/Units 00:12 00:14 01:11 WBC (3.8-10.6) k/uL RBC (4.30-5.90) m/uL Hgb (13.0-17.5) gm/dL Hct (39.0-53.0) % Plt Count (150-450) k/uL Neutrophils # (1.3-7.7) k/uL Lymphocytes # (1.0-4.8) k/uL PT (9.0-12.0) sec INR (<1.2) ABG pH (7.35-7.45) ABG pCO2 (35-45) mmHg ABG pO2 (83-108) mmHg ABG Total CO2 (19-24) mmol/L ABG O2 Saturation (94-97) % Chloride (98-107) mmol/L Glucose (74-99) mg/dL POC Glucose (mg/dL) 54 L 123 H 129 H (75-99) mg/dL Alkaline Phosphatase (38-126) U/L Total Protein (6.3-8.2) g/dL Albumin (3.5-5.0) g/dL Crossmatch 05/15/17 05/15/17 05/15/17 Range/Units 04:08 05:03 05:05 WBC (3.8-10.6) k/uL RBC 3.92 L (4.30-5.90) m/uL Hgb 12.2 L (13.0-17.5) gm/dL Hct 38.1 L (39.0-53.0) % Plt Count 125 L (150-450) k/uL Neutrophils # 8.1 H (1.3-7.7) k/uL Lymphocytes # 0.9 L (1.0-4.8) k/uL PT (9.0-12.0) sec INR (<1.2) ABG pH (7.35-7.45) ABG pCO2 (35-45) mmHg ABG pO2 (83-108) mmHg ABG Total CO2 (19-24) mmol/L ABG O2 Saturation (94-97) % Chloride (98-107) mmol/L Glucose (74-99) mg/dL POC Glucose (mg/dL) 117 H 110 H (75-99) mg/dL Alkaline Phosphatase (38-126) U/L Total Protein (6.3-8.2) g/dL Albumin (3.5-5.0) g/dL Crossmatch 05/15/17 05/15/17 05/15/17 Range/Units 05:05 05:05 06:54 WBC (3.8-10.6) k/uL RBC (4.30-5.90) m/uL Hgb (13.0-17.5) gm/dL Hct (39.0-53.0) % Plt Count (150-450) k/uL Neutrophils # (1.3-7.7) k/uL Lymphocytes # (1.0-4.8) k/uL PT 12.2 H (9.0-12.0) sec INR 1.3 H (<1.2) ABG pH (7.35-7.45) ABG pCO2 (35-45) mmHg ABG pO2 (83-108) mmHg ABG Total CO2 (19-24) mmol/L ABG O2 Saturation (94-97) % Chloride (98-107) mmol/L Glucose 116 H (74-99) mg/dL POC Glucose (mg/dL) 117 H (75-99) mg/dL Alkaline Phosphatase 35 L (38-126) U/L Total Protein 5.3 L (6.3-8.2) g/dL Albumin (3.5-5.0) g/dL Crossmatch 05/15/17 05/15/17 05/15/17 Range/Units 08:15 09:04 10:39 WBC (3.8-10.6) k/uL RBC (4.30-5.90) m/uL Hgb (13.0-17.5) gm/dL Hct (39.0-53.0) % Plt Count (150-450) k/uL Neutrophils # (1.3-7.7) k/uL Lymphocytes # (1.0-4.8) k/uL PT (9.0-12.0) sec INR (<1.2) ABG pH (7.35-7.45) ABG pCO2 (35-45) mmHg ABG pO2 (83-108) mmHg ABG Total CO2 (19-24) mmol/L ABG O2 Saturation (94-97) % Chloride (98-107) mmol/L Glucose (74-99) mg/dL POC Glucose (mg/dL) 123 H 110 H 115 H (75-99) mg/dL Alkaline Phosphatase (38-126) U/L Total Protein (6.3-8.2) g/dL Albumin (3.5-5.0) g/dL Crossmatch 05/15/17 05/15/17 Range/Units 12:55 14:11 WBC (3.8-10.6) k/uL RBC (4.30-5.90) m/uL Hgb (13.0-17.5) gm/dL Hct (39.0-53.0) % Plt Count (150-450) k/uL Neutrophils # (1.3-7.7) k/uL Lymphocytes # (1.0-4.8) k/uL PT (9.0-12.0) sec INR (<1.2) ABG pH (7.35-7.45) ABG pCO2 (35-45) mmHg ABG pO2 (83-108) mmHg ABG Total CO2 (19-24) mmol/L ABG O2 Saturation (94-97) % Chloride (98-107) mmol/L Glucose (74-99) mg/dL POC Glucose (mg/dL) 120 H 119 H (75-99) mg/dL Alkaline Phosphatase (38-126) U/L Total Protein (6.3-8.2) g/dL Albumin (3.5-5.0) g/dL Crossmatch Assessment and Plan Assessment: Impression: 1 status post CABG 4, with FALK to LAD, sequential right radial artery graft to first and second obtuse marginal, left radial artery graft to right coronary artery, postoperative day #1 2 postoperative atelectasis as noted on the chest x -ray, expected finding postoperatively. 3 history of ischemic cardiomyopathy and severely impaired LV function. 4 history of hypertension History of degenerative joint disease. Recommendation: Continue present supportive care measures, incentive spirometry , early ambulation, bronchodilators, we'll continue to follow. Time with Patient: Less than 30
[2017-05-15 15:19] LABS: Glucose,Whole Blood 125 mg/dL (75-99)
[2017-05-15] MEDS: IPRATROPIUM-ALBUTEROL 3 ML NEB INHALATION SCH ×2 (15:33→19:49)
[2017-05-15 16:23] LABS: Glucose,Whole Blood 121 mg/dL (75-99)
[2017-05-15 17:25] LABS: Glucose,Whole Blood 119 mg/dL (75-99)
[2017-05-15] MEDS: CLEVIDIPINE BUTYRATE 25 MG in EMPTY BAG 1 BAG IV SCH (17:26)
[2017-05-15] MEDS: LACTATED RINGERS 1,000 ML IV SCH (17:27)
[2017-05-15 18:00] LABS: Glucose,Whole Blood 110 mg/dL (75-99)
[2017-05-15 19:08] LABS: Glucose,Whole Blood 119 mg/dL (75-99)
[2017-05-15 19:56] LABS: Glucose,Whole Blood 132 mg/dL (75-99)
[2017-05-15] MEDS: SENNOSIDES-DOCUSATE SODIUM 1 EACH TAB PO SCH (20:51)
[2017-05-15 20:56] LABS: Glucose,Whole Blood 129 mg/dL (75-99)
[2017-05-15 21:55] LABS: Glucose,Whole Blood 138 mg/dL (75-99)
[2017-05-15 23:14] LABS: Glucose,Whole Blood 116 mg/dL (75-99)
[2017-05-16] MEDS: HYDROcodone/APAP 5-325MG 1 EACH TAB PO PRN ×4 (00:01→23:14)
[2017-05-16] MEDS: HEPARIN SODIUM,PORCINE 5,000 UNIT/ML 1 ML VIAL SQ SCH ×3 (00:02→16:03)
[2017-05-16 00:26] LABS: Glucose,Whole Blood 124 mg/dL (75-99)
[2017-05-16 02:08] LABS: Glucose,Whole Blood 112 mg/dL (75-99)
[2017-05-16 03:26] LABS: Glucose,Whole Blood 105 mg/dL (75-99)
[2017-05-16 04:25] LABS: Glucose,Whole Blood 104 mg/dL (75-99)
[2017-05-16 04:40] LABS: Basophils % (A) 0 %; Eosinophils # (A) 0.1 k/uL (0-0.7); Eosinophils % (A) 1 %; HCT 34.5 % (39.0-53.0); Lymphocytes % (A) 12 %; MCH 31.1 pg (25.0-35.0); MCHC 31.9 g/dL (31.0-37.0); MCV 97.7 fL (80.0-100.0); Mean Platelet Volume 6.9; Monocytes # (A) 0.7 k/uL (0-1.0); Monocytes % (A) 8 %; Neutrophils # (A) 6.6 k/uL (1.3-7.7); Neutrophils % (A) 78 %; Platelet Count 106 k/uL (150-450); RBC 3.53 m/uL (4.30-5.90); WBC 8.5 k/uL (3.8-10.6)
[2017-05-16 04:49] LABS: Ionized Calcium 4.9 mg/dL (4.5-5.3)
[2017-05-16 05:00] LABS: ALT 26 U/L (21-72); AST 34 U/L (17-59); Alkaline Phosphatase 32 U/L (38-126); Anion Gap 9 mmol/L; Blood Urea Nitrogen 15 mg/dL (9-20); Calcium 8.4 mg/dL (8.4-10.2); Carbon Dioxide 25 mmol/L (22-30); Chloride 103 mmol/L (98-107); Glucose 103 mg/dL (74-99); Magnesium 2.1 mg/dL (1.6-2.3); Potassium 4.5 mmol/L (3.5-5.1); Sodium 137 mmol/L (137-145); Total Bilirubin 0.6 mg/dL (0.2-1.3)
[2017-05-16 05:14] LABS: Glucose,Whole Blood 108 mg/dL (75-99)
[2017-05-16 06:11] LABS: Glucose,Whole Blood 102 mg/dL (75-99)
[2017-05-16 06:59] LABS: Glucose,Whole Blood 112 mg/dL (75-99)
--- NOTE | 2017-05-16 07:33 | XR ---
EXAMINATION TYPE: XR chest 1V portable DATE OF EXAM: 05/16/2017 COMPARISON: 05/15/2017 HISTORY: Postoperative state. Follow-up exam. TECHNIQUE: Single frontal view of the chest is obtained. FINDINGS: Left-sided thoracostomy tube, post-CABG changes, and trace bilateral pleural effusions are unchanged in the interim. Mild pulmonary vascular congestion and cardiomegaly are also unchanged. Th e right-sided [place] catheter has been removed in the interim with the right internal jugular pinedo th remaining. Mediastinal drains are also stable. No pneumothorax is seen. IMPRESSION: Removal of the right-sided [place] catheter with the right internal jugular sheath rem aining. Otherwise stable postoperative changes of the chest with no residual left-sided pneumothorax.
[2017-05-16 08:03] LABS: Glucose,Whole Blood 114 mg/dL (75-99)
[2017-05-16] MEDS: IPRATROPIUM-ALBUTEROL 3 ML NEB INHALATION SCH ×4 (08:04→20:39)
[2017-05-16] MEDS: PANTOPRAZOLE 40 MG TABLET PO SCH (08:11)
[2017-05-16] MEDS: ASPIRIN 325 MG TAB PO SCH (08:11)
[2017-05-16] MEDS: ATORVASTATIN 40 MG TAB PO SCH (08:11)
[2017-05-16] MEDS: CLOPIDOGREL 75 MG TAB PO SCH (08:12)
--- NOTE | 2017-05-16 08:29 | P.PN ---
Subjective Progress Note Date: 05/16/17 Principal diagnosis: Severe triple vessel coronary artery disease. Previous medical history of hypertension, osteoarthritis, remote history of pneumonia, remote history of tobacco abuse, history of vein stripping to his left leg in 2012, family history of coronary artery disease. Obesity. POD #2 off-pump coronary artery bypass graft 4 with the left internal mammary artery to the LAD, sequential right radial artery graft to first and second obtuse marginal, left radial artery graft to right coronary artery with bilateral endovascular radial artery harvest and intraoperative FRANCIS by anesthesia. Patient is currently sitting up in the chair in no acute distress. Denies chest pain, shortness of breath. No new complaints. Objective - Vital Signs Vital signs: Vital Signs Temp 98 F 05/16/17 08:00 Pulse 72 05/16/17 08:16 Resp 18 05/16/17 08:00 BP 94/58 05/16/17 08:00 Pulse Ox 95 05/16/17 08:00 Intake & Output 05/15/17 05/16/17 05/16/17 18:59 06:59 18:59 Intake Total 803 298.817 46 Output Total 622 650 130 Balance 181 -351.183 -84 Weight 118.7 kg 116.8 kg Intake: IV 403 293 46 Lactated Ringers 1,000 ml 370 260 40 @ 20 mls/hr IV .Q24H [facility] Rx#:[id number] pressure bag 33 33 6 Intake, IV Titration 5.817 Amount Insulin Regular 100 unit 5.817 In Sodium Chloride 0.9% 100 ml @ Per Protocol IV .Q0M [facility] Rx#:[id number] Oral 400 Output: Chest Tube Drainage 270 120 50 Chest Tube Left Pleural/ 270 120 50 Mediastinal Drainage 0 10 10 Right Arm 0 10 10 Urine 352 520 70 Other: Voiding Method Indwelling Catheter Indwelling Catheter ABP, PAP, CO, CI - Last Documented Arterial Blood Pressure 119/53 Pulmonary Artery Pressure 45/22 Cardiac Output 5.1 Cardiac Index 2.3 - Constitutional General appearance: Present: cooperative, no acute distress, obese - Respiratory Details: Lungs sounds diminished with coarse breath sounds in bases. Respirations even, nonlabored. Currently on 6 L nasal cannula with oxygen saturation 98%. Able to achieve 500-750 mL on his incentive spirometry. Left/mediastinal chest tube to -20 cm wall suction, 70 mL thin serosanguineous drainage overnight, 450 mL in the last 24 hours. No air leak present. Effective cough. - Cardiovascular Details: S1, S2 present. Regular rate and rhythm, sinus rhythm on telemetry. Sternum stable. A/V epicardial pacemaker wires present, grounded. Right internal jugular Cordis present. Palpable lower extremity pulses bilaterally. Upper extremities with evidence of good perfusion, trace edema present. No calf pain or tenderness noted. Heart hugger in place with patient demonstrating appropriate use. Antiembolism stockings, SCDs present. - Gastrointestinal Gastrointestinal Comment(s): Abdomen soft, nontender, nondistended. Active bowel sounds 4 quadrants. Tolerating diet. Positive flatus, negative bowel movement. - Genitourinary Genitourinary Comment(s): Reagan present draining clear, yellow urine. Output 30-50 mL per hour overnight. - Integumentary Integumentary Comment(s): Skin is warm and dry with evidence of good perfusion. Anterior chest incision well approximated with dry intact dressing. Bilateral radial artery harvest sites well approximated with Dermabond, right site with JULIANE with trace thin serous drainage. - Neurologic Neurologic: Present: CNII-XII intact - Musculoskeletal Musculoskeletal: Present: gait normal, strength equal bilaterally - Psychiatric Psychiatric: Present: A&O x's 3, appropriate affect, intact judgment & insight - Allied health notes Allied health notes reviewed: nursing - Labs CBC & Chem 7: 05/16/17 04:20 05/16/17 04:20 Labs: Abnormal Lab Results - Last 24 Hours (Table) 05/15/17 05/15/17 05/15/17 Range/Units 09:04 10:39 12:55 RBC (4.30-5.90) m/uL Hgb (13.0-17.5) gm/dL Hct (39.0-53.0) % Plt Count (150-450) k/uL Glucose (74-99) mg/dL POC Glucose (mg/dL) 110 H 115 H 120 H (75-99) mg/dL Alkaline Phosphatase (38-126) U/L Total Protein (6.3-8.2) g/dL Albumin (3.5-5.0) g/dL 05/15/17 05/15/17 05/15/17 Range/Units 14:11 15:16 16:21 RBC (4.30-5.90) m/uL Hgb (13.0-17.5) gm/dL Hct (39.0-53.0) % Plt Count (150-450) k/uL Glucose (74-99) mg/dL POC Glucose (mg/dL) 119 H 125 H 121 H (75-99) mg/dL Alkaline Phosphatase (38-126) U/L Total Protein (6.3-8.2) g/dL Albumin (3.5-5.0) g/dL 05/15/17 05/15/17 05/15/17 Range/Units 17:23 17:58 19:06 RBC (4.30-5.90) m/uL Hgb (13.0-17.5) gm/dL Hct (39.0-53.0) % Plt Count (150-450) k/uL Glucose (74-99) mg/dL POC Glucose (mg/dL) 119 H 110 H 119 H (75-99) mg/dL Alkaline Phosphatase (38-126) U/L Total Protein (6.3-8.2) g/dL Albumin (3.5-5.0) g/dL 05/15/17 05/15/17 05/15/17 Range/Units 19:53 20:54 21:53 RBC (4.30-5.90) m/uL Hgb (13.0-17.5) gm/dL Hct (39.0-53.0) % Plt Count (150-450) k/uL Glucose (74-99) mg/dL POC Glucose (mg/dL) 132 H 129 H 138 H (75-99) mg/dL Alkaline Phosphatase (38-126) U/L Total Protein (6.3-8.2) g/dL Albumin (3.5-5.0) g/dL 05/15/17 05/16/17 05/16/17 Range/Units 23:13 00:12 02:06 RBC (4.30-5.90) m/uL Hgb (13.0-17.5) gm/dL Hct (39.0-53.0) % Plt Count (150-450) k/uL Glucose (74-99) mg/dL POC Glucose (mg/dL) 116 H 124 H 112 H (75-99) mg/dL Alkaline Phosphatase (38-126) U/L Total Protein (6.3-8.2) g/dL Albumin (3.5-5.0) g/dL 05/16/17 05/16/17 05/16/17 Range/Units 03:24 04:20 04:20 RBC 3.53 L (4.30-5.90) m/uL Hgb 11.0 L (13.0-17.5) gm/dL Hct 34.5 L (39.0-53.0) % Plt Count 106 L (150-450) k/uL Glucose 103 H (74-99) mg/dL POC Glucose (mg/dL) 105 H (75-99) mg/dL Alkaline Phosphatase 32 L (38-126) U/L Total Protein 5.0 L (6.3-8.2) g/dL Albumin 3.0 L (3.5-5.0) g/dL 05/16/17 05/16/17 05/16/17 Range/Units 04:23 05:11 06:09 RBC (4.30-5.90) m/uL Hgb (13.0-17.5) gm/dL Hct (39.0-53.0) % Plt Count (150-450) k/uL Glucose (74-99) mg/dL POC Glucose (mg/dL) 104 H 108 H 102 H (75-99) mg/dL Alkaline Phosphatase (38-126) U/L Total Protein (6.3-8.2) g/dL Albumin (3.5-5.0) g/dL 05/16/17 05/16/17 Range/Units 06:57 08:02 RBC (4.30-5.90) m/uL Hgb (13.0-17.5) gm/dL Hct (39.0-53.0) % Plt Count (150-450) k/uL Glucose (74-99) mg/dL POC Glucose (mg/dL) 112 H 114 H (75-99) mg/dL Alkaline Phosphatase (38-126) U/L Total Protein (6.3-8.2) g/dL Albumin (3.5-5.0) g/dL - Imaging and Cardiology Chest x-ray: report reviewed, image reviewed Assessment and Plan (1) Tobacco dependence in remission Current Visit: No Status: Resolved Code(s): F17.201 - NICOTINE DEPENDENCE, UNSPECIFIED, IN REMISSION SNOMED Code(s): 056182919 (2) Coronary artery disease Current Visit: Yes Status: Chronic Code(s): I25.10 - ATHSCL HEART DISEASE OF [place] CORONARY ARTERY W/O ANG PCTRS SNOMED Code(s): 78884205 (3) Hypertension Current Visit: Yes Status: Chronic Code(s): I10 - ESSENTIAL (PRIMARY) HYPERTENSION SNOMED Code(s): 81408200 (4) Osteoarthritis Current Visit: Yes Status: Chronic Code(s): M19.90 - UNSPECIFIED OSTEOARTHRITIS, UNSPECIFIED SITE SNOMED Code(s): 498984297 (5) Obesity (BMI 30-39.9) Current Visit: Yes Status: Chronic Code(s): E66.9 - OBESITY, UNSPECIFIED SNOMED Code(s): 294040258 (6) Family history of heart disease Current Visit: Yes Status: Chronic Code(s): Z82.49 - FAMILY HX OF ISCHEM HEART DIS AND OTH DIS OF THE CIRC SYS SNOMED Code(s): 626779684 Plan: 1. Continue aspirin, statin, Plavix, heparin subcu, beta rosita. Will increase beta rosita therapy as tolerated. 2. Continue Norvasc for radial artery spasm prevention. 3. Wean O2 as tolerated. Encourage incentive spirometry use 10 times every hour while awake. Encourage continued smoking cessation. 4. Increase activity as tolerated, up to chair, ambulate as able. PT/OT/ cardiac rehab following. 5. GI DVT prophylaxis. 6. Will monitor daily labs and x-rays. 7. Insulin drip/blood sugar control per primary care service. 8. Likely will discontinue mediastinal chest tube today. 9. Will discontinue right radial JULIANE drain. 10. More recommendations as patient progresses. Likely will transfer to [facility] care today. Time with Patient: Greater than 30
[2017-05-16] MEDS: ONDANSETRON 4 MG/2 ML VIAL IVP PRN (08:57)
[2017-05-16 09:07] LABS: Glucose,Whole Blood 109 mg/dL (75-99)
[2017-05-16] MEDS ORDERED: amLODIPine 2.5 MG TAB PO SCH (09:40)
[2017-05-16 11:03] LABS: Glucose,Whole Blood 102 mg/dL (75-99)
[2017-05-16] MEDS: METOPROLOL TARTRATE 12.5 MG TAB PO SCH ×2 (12:25→20:33)
[2017-05-16] MEDS: LACTATED RINGERS 1,000 ML IV SCH (12:26)
[2017-05-16] MEDS: CLEVIDIPINE BUTYRATE 25 MG in EMPTY BAG 1 BAG IV SCH (12:26)
[2017-05-16] MEDS ORDERED: amLODIPine 2.5 MG TAB PO STA ×2 (13:00→15:22)
[2017-05-16 13:08] LABS: Glucose,Whole Blood 107 mg/dL (75-99)
--- NOTE | 2017-05-16 13:22 | P.PN ---
Subjective Progress Note Date: 05/16/17 Principal diagnosis: Status post CABG postoperative day #2 This is a 71-year-old white male presented initially with anginal symptoms, cardiac catheterization done in the last 2 weeks showed severe three-vessel disease, including occlusion of the left anterior descending coronary artery, occlusion of the distal circumflex coronary artery. Stress testing was suggestive of reversible ischemia, and the patient was advised to undergo CABG which was done today electively. Patient underwent FALK to LAD, sequential right radial artery graft to the first and second obtuse marginal, left radial artery graft to the right coronary artery and bilateral endovascular radial artery harvest and FRANCIS by anesthesia. Postoperatively, patient is on mechanical ventilation, and this consult was initiated. His last cardiac catheterization was done on 05/01/2017. His previous cardiac workup showed LV dysfunction with ejection fraction of 25-30%. Patient was reevaluated today on 05/15/2017, doing well, relatively asymptomatic , extubated last night uneventfully. No cough no wheezing no shortness of breath, chest x-ray is showing mostly postoperative changes otherwise unremarkable. Labs were all reviewed. Reevaluated today on 05/16/2017, patient is asymptomatic, remains on nasal cannula, doing well, sitting in the chair, relatively asymptomatic. Labs and chest x-ray were reviewed. The chest x-ray is showing postoperative changes and atelectasis as expected. Objective - Vital Signs Vital signs: Vital Signs Temp 98 F 05/16/17 12:00 Pulse 73 05/16/17 13:00 Resp 16 05/16/17 13:00 BP 135/76 05/16/17 13:00 Pulse Ox 94 L 05/16/17 13:00 Intake & Output 05/15/17 05/16/17 05/16/17 18:59 06:59 18:59 Intake Total 803 298.817 381 Output Total 622 650 305 Balance 181 -351.183 76 Weight 118.7 kg 116.8 kg Intake: IV 403 293 161 Lactated Ringers 1,000 ml 370 260 140 @ 20 mls/hr IV .Q24H [facility] Rx#:[id number] pressure bag 33 33 21 Intake, IV Titration 5.817 Amount Insulin Regular 100 unit 5.817 In Sodium Chloride 0.9% 100 ml @ Per Protocol IV .Q0M [facility] Rx#:[id number] Oral 400 220 Output: Chest Tube Drainage 270 120 50 Chest Tube Left Pleural/ 270 120 50 Mediastinal Pleural Catheter Left 0 Drainage 0 10 10 Right Arm 0 10 10 Urine 352 520 245 Other: Voiding Method Indwelling Catheter Indwelling Catheter Indwelling Catheter ABP, PAP, CO, CI - Last Documented Arterial Blood Pressure 119/53 Pulmonary Artery Pressure 45/22 Cardiac Output 5.1 Cardiac Index 2.3 - Exam Physical Exam: Revealed a 71-year-old white male in no distress. On nasal cannula, HEENT:[Neck is supple.] [No neck masses.] [No thyromegaly.] [No JVD.] Chest: [Diminished breath sounds at the bases, crackles at the left base, no rhonchi, no wheezes. No chest wall tenderness.] Cardiac Exam: [Normal S1 and S2, no S3 gallop, no murmur.] Abdomen: [Soft, nontender, no megaly, no rebound, no guarding, normal bowel sounds.] Extremities: [No clubbing, no edema, no cyanosis.] Neurological Exam: [No focal neurologic deficit.] Lymphatics: No lymphadenopathy. Psychiatric: Normal mood affect and mental status examination. - Labs CBC & Chem 7: 05/16/17 04:20 05/16/17 04:20 Labs: Abnormal Lab Results - Last 24 Hours (Table) 05/15/17 05/15/17 05/15/17 Range/Units 14:11 15:16 16:21 RBC (4.30-5.90) m/uL Hgb (13.0-17.5) gm/dL Hct (39.0-53.0) % Plt Count (150-450) k/uL Glucose (74-99) mg/dL POC Glucose (mg/dL) 119 H 125 H 121 H (75-99) mg/dL Alkaline Phosphatase (38-126) U/L Total Protein (6.3-8.2) g/dL Albumin (3.5-5.0) g/dL 05/15/17 05/15/17 05/15/17 Range/Units 17:23 17:58 19:06 RBC (4.30-5.90) m/uL Hgb (13.0-17.5) gm/dL Hct (39.0-53.0) % Plt Count (150-450) k/uL Glucose (74-99) mg/dL POC Glucose (mg/dL) 119 H 110 H 119 H (75-99) mg/dL Alkaline Phosphatase (38-126) U/L Total Protein (6.3-8.2) g/dL Albumin (3.5-5.0) g/dL 05/15/17 05/15/17 05/15/17 Range/Units 19:53 20:54 21:53 RBC (4.30-5.90) m/uL Hgb (13.0-17.5) gm/dL Hct (39.0-53.0) % Plt Count (150-450) k/uL Glucose (74-99) mg/dL POC Glucose (mg/dL) 132 H 129 H 138 H (75-99) mg/dL Alkaline Phosphatase (38-126) U/L Total Protein (6.3-8.2) g/dL Albumin (3.5-5.0) g/dL 05/15/17 05/16/17 05/16/17 Range/Units 23:13 00:12 02:06 RBC (4.30-5.90) m/uL Hgb (13.0-17.5) gm/dL Hct (39.0-53.0) % Plt Count (150-450) k/uL Glucose (74-99) mg/dL POC Glucose (mg/dL) 116 H 124 H 112 H (75-99) mg/dL Alkaline Phosphatase (38-126) U/L Total Protein (6.3-8.2) g/dL Albumin (3.5-5.0) g/dL 05/16/17 05/16/17 05/16/17 Range/Units 03:24 04:20 04:20 RBC 3.53 L (4.30-5.90) m/uL Hgb 11.0 L (13.0-17.5) gm/dL Hct 34.5 L (39.0-53.0) % Plt Count 106 L (150-450) k/uL Glucose 103 H (74-99) mg/dL POC Glucose (mg/dL) 105 H (75-99) mg/dL Alkaline Phosphatase 32 L (38-126) U/L Total Protein 5.0 L (6.3-8.2) g/dL Albumin 3.0 L (3.5-5.0) g/dL 05/16/17 05/16/17 05/16/17 Range/Units 04:23 05:11 06:09 RBC (4.30-5.90) m/uL Hgb (13.0-17.5) gm/dL Hct (39.0-53.0) % Plt Count (150-450) k/uL Glucose (74-99) mg/dL POC Glucose (mg/dL) 104 H 108 H 102 H (75-99) mg/dL Alkaline Phosphatase (38-126) U/L Total Protein (6.3-8.2) g/dL Albumin (3.5-5.0) g/dL 05/16/17 05/16/17 05/16/17 Range/Units 06:57 08:02 09:04 RBC (4.30-5.90) m/uL Hgb (13.0-17.5) gm/dL Hct (39.0-53.0) % Plt Count (150-450) k/uL Glucose (74-99) mg/dL POC Glucose (mg/dL) 112 H 114 H 109 H (75-99) mg/dL Alkaline Phosphatase (38-126) U/L Total Protein (6.3-8.2) g/dL Albumin (3.5-5.0) g/dL 05/16/17 05/16/17 Range/Units 11:01 13:06 RBC (4.30-5.90) m/uL Hgb (13.0-17.5) gm/dL Hct (39.0-53.0) % Plt Count (150-450) k/uL Glucose (74-99) mg/dL POC Glucose (mg/dL) 102 H 107 H (75-99) mg/dL Alkaline Phosphatase (38-126) U/L Total Protein (6.3-8.2) g/dL Albumin (3.5-5.0) g/dL Assessment and Plan Assessment: Impression: 1 status post CABG 4, with FALK to LAD, sequential right radial artery graft to first and second obtuse marginal, left radial artery graft to right coronary artery, postoperative day #2 2 postoperative atelectasis as noted on the chest x-ray, expected finding postoperatively. 3 history of ischemic cardiomyopathy and severely impaired LV function. 4 history of hypertension History of degenerative joint disease. Recommendation: Continue present supportive care measures, incentive spirometry , ambulation, bronchodilators, we'll continue to follow. Time with Patient: Less than 30
--- NOTE | 2017-05-16 17:21 | PN ---
PROGRESS NOTE Mr. Mittal underwent aortocoronary bypass surgery yesterday with a radial graft. He is doing much better. Remains in sinus rhythm. Denies chest pain. Blood pressure is somewhat at the low end. I am recommending we cut back the amlodipine from 5 to 2.5 mg at bedtime; this is necessary because he has radial graft. Heart rate is in the 70s. S1, S2 heard normally. Lungs reveal improved air entry. Abdomen and lower extremity exam unchanged. Plan is to continue his other medications as before. Incentive spirometry and pulmonary toilet. MMODL / IJN: [id number] /
[2017-05-16 18:03] LABS: Glucose,Whole Blood 107 mg/dL (75-99)
[2017-05-16] MEDS: SENNOSIDES-DOCUSATE SODIUM 1 EACH TAB PO SCH (20:33)
--- NOTE | 2017-05-16 21:03 | CONS ---
CONSULTATION DATE OF SERVICE: 05/16/2017. HISTORY: The patient is a 71-year-old gentleman who sees Dr. Mcknight as an outpatient, who had a stress test done as an outpatient which was significantly abnormal. The patient was admitted for cardiac catheterization which showed significant triple-vessel disease. The patient underwent coronary artery bypass grafting performed by Dr. Edwin Lacey with FALK and LAD and free radical artery graft and sequential sequential bypasses to obtuse marginal 1 and 2. The patient was intubated postoperatively. He is now extubated and remains in ICU. PAST MEDICAL HISTORY: Significant for history of hypertension, osteoarthritis, coronary artery disease, history of pneumonia in the past. PAST SURGICAL HISTORY: Past surgical history significant for recurrent left leg ulcer, history of heart catheterization. SOCIAL HISTORY: Patient is a former smoker, quit a few years ago. No history of alcohol abuse or IV drug abuse. FAMILY HISTORY: Significant for myocardial infarction in his father who of an MD at age 90. ALLERGIC: PENICILLIN, INFLUENZA VIRAL VACCINE, NOVOCAIN. MEDICATIONS: 1. Ecotrin 81 mg daily. 2. Lipitor 80 mg at bedtime. 3. Zestril 10 mg p.o. b.i.d. 4. Lopressor 25 mg b.i.d. 5. Ibuprofen 600 mg daily p.r.n. 6. Multivitamins 1 p.o. daily. REVIEW OF SYSTEM: CONSTITUTIONAL: Patient denies any fever, chills or unexplained weight loss. HEENT: No hearing or vision loss. RESPIRATORY SYSTEM: No shortness of breath or cough. No wheezing. CARDIOVASCULAR: As per HPI. ABDOMEN/GI: No nausea, vomiting, diarrhea. GENITOURINARY SYSTEM: No hematuria or dysuria. EXTREMITIES: No joint or muscle deformities. SKIN: No rashes or pigmentation. CENTRAL NERVOUS SYSTEM: No dizziness or lightheadedness. No chronic headaches. LYMPHATICS: No cervical or axillary lymph node enlargement. ENDOCRINE: No polyuria, polydipsia. HEMATOLOGIC: No bleeding or coagulation disorder. The rest of the 14-point review of system is unremarkable. PHYSICAL EXAMINATION: Patient is seen in the ICU. He is awake and alert. He is in no acute distress. VITAL SIGNS: Temperature of 97.9, pulse 67, respirations 18, blood pressure 155/88, O2 saturation 96%. HEENT: Atraumatic, normocephalic. Pupils equal and reactive to light. Extraocular movements intact. Buccal mucosa is fair. NECK: Supple. No goiter or lymphadenopathy. JVD is negative. No carotid bruit heard. HEART: Heart is regular rate and rhythm without any murmurs, gallop rhythm. LUNGS: The patient has bilateral fair air entry. No wheezing or rales. ABDOMEN/GI. Abdomen is soft, nontender, nondistended. Bowel sounds positive. EXTREMITIES: Lower extremities are wrapped. Pulses are palpable. CENTRAL NERVOUS SYSTEM: Patient is awake, alert, oriented x3. No gross motor or sensory deficit. ASSESSMENT: 1. Coronary artery disease status post coronary artery bypass grafting x4 vessels. 2. Postoperative atelectasis. 3. Post mechanical ventilation, clinically stable. 4. Hypertension. 5. Ischemic cardiomyopathy with severely impaired left ventricular ejection fraction. PLAN: The patient remains in ICU. The patient was put on IV insulin drip for elevated blood sugars postoperatively, which are stable. We will plan to monitor hemoglobin and electrolytes and renal function and make adjustments as needed. We will recommend incentive spirometry every 1 hour while awake and increase activity when cleared by Cardiothoracic Surgery. MMODL / IJN: [id number] /
[2017-05-17] MEDS: HEPARIN SODIUM,PORCINE 5,000 UNIT/ML 1 ML VIAL SQ SCH ×3 (00:54→17:35)
[2017-05-17 03:19] LABS: Glucose,Whole Blood 109 mg/dL (75-99)
[2017-05-17 04:24] LABS: HCT 35.5 % (39.0-53.0); HGB 11.1 gm/dL (13.0-17.5); MCH 30.4 pg (25.0-35.0); MCHC 31.2 g/dL (31.0-37.0); MCV 97.4 fL (80.0-100.0); Mean Platelet Volume 7.2; Platelet Count 127 k/uL (150-450); RBC 3.64 m/uL (4.30-5.90); RDW 12.9 % (11.5-15.5); WBC 7.8 k/uL (3.8-10.6)
[2017-05-17 04:39] LABS: ALT 23 U/L (21-72); AST 31 U/L (17-59); Alkaline Phosphatase 39 U/L (38-126); Anion Gap 9 mmol/L; Blood Urea Nitrogen 14 mg/dL (9-20); Calcium 8.5 mg/dL (8.4-10.2); Carbon Dioxide 24 mmol/L (22-30); Chloride 103 mmol/L (98-107); Glucose 117 mg/dL (74-99); Magnesium 2.1 mg/dL (1.6-2.3); Potassium 4.4 mmol/L (3.5-5.1); Sodium 136 mmol/L (137-145); Total Bilirubin 0.4 mg/dL (0.2-1.3); Total Protein 5.1 g/dL (6.3-8.2)
--- NOTE | 2017-05-17 06:51 | XR ---
EXAMINATION TYPE: XR chest 1V portable DATE OF EXAM: 05/17/2017 HISTORY: post cardiac surgery. REFERENCE: Previous study dated 05/16/2017. FINDINGS: The patient right internal jugular sheath is been removed. There has been a midline sternot vinh. The heart is enlarged. There is left basilar airspace disease. There are small, bilateral effusi ons. The overall appearance is similar to the previous study. IMPRESSION: NO SIGNIFICANT INTERVAL CHANGE IN THE APPEARANCE OF THE CHEST.
[2017-05-17] MEDS: IPRATROPIUM-ALBUTEROL 3 ML NEB INHALATION SCH ×4 (07:20→20:49)
[2017-05-17 07:30] LABS: Glucose,Whole Blood 104 mg/dL (75-99)
[2017-05-17] MEDS: HYDROcodone/APAP 5-325MG 1 EACH TAB PO PRN ×3 (08:44→21:23)
[2017-05-17] MEDS: PANTOPRAZOLE 40 MG TABLET PO SCH (08:45)
[2017-05-17] MEDS: CLOPIDOGREL 75 MG TAB PO SCH (08:45)
[2017-05-17] MEDS: ASPIRIN 325 MG TAB PO SCH (08:45)
[2017-05-17] MEDS: amLODIPine 5 MG TAB PO SCH (08:45)
[2017-05-17] MEDS: ATORVASTATIN 40 MG TAB PO SCH (08:45)
[2017-05-17] MEDS ORDERED: TAMSULOSIN 0.4 MG CAP.ER.24H PO STA (10:37)
[2017-05-17] MEDS: METOPROLOL TARTRATE 12.5 MG TAB PO SCH ×2 (11:00→21:47)
--- NOTE | 2017-05-17 11:21 | P.PN ---
Subjective Progress Note Date: 05/17/17 Principal diagnosis: Severe triple vessel coronary artery disease. Ischemic cardiomyopathy with impaired LV function with an ejection fraction of 25-30%. Previous medical history of hypertension, hyperlipidemia, osteoarthritis, remote history of pneumonia, remote history of tobacco abuse quit smoking 20 years ago, history of vein stripping to his left leg in 2012, family history of coronary artery disease. Obesity. POD #3 off-pump coronary artery bypass graft 4 with the left internal mammary artery to the left anterior descending coronary artery, a sequential right radial artery graft to first and second obtuse marginal coronary arteries, a left radial artery graft to right coronary artery with bilateral endovascular radial artery harvest and intraoperative epi-aortic ultrasound and a transesophageal echocardiogram by anesthesia. Patient is currently sitting up to the bedside chair. He is in no acute distress. He is tolerating his breakfast. He is complaining of pain to his chest tube insertion site 6 out of 10 on the pain scale. He is currently on 3 L nasal cannula with oxygen saturations 95%. He is achieving 2000 L on his incentive spirometry. He reports that he ambulated in the intensive care unit to the nurse's station yesterday. Complaining of some urinary retention, he was straight cath this a.m. for 650 mL of clear yellow urine. Objective - Vital Signs Vital signs: Vital Signs Temp 99 F 05/17/17 08:00 Pulse 96 05/17/17 08:00 Resp 21 05/17/17 08:00 BP 117/63 05/17/17 08:00 Pulse Ox 94 L 05/17/17 08:00 Intake & Output 05/16/17 05/17/17 05/17/17 18:59 06:59 18:59 Intake Total 600 850 Output Total 458 755 0 Balance 142 95 0 Weight 116.8 kg Intake: IV 230 Lactated Ringers 1,000 ml 200 @ 20 mls/hr IV .Q24H [facility] Rx#:[id number] pressure bag 30 Oral 370 850 Output: Chest Tube Drainage 68 105 Chest Tube Left Pleural/ 50 Mediastinal Pleural Catheter Left 18 105 Drainage 10 Right Arm 10 Urine 380 650 0 Other: Voiding Method Indwelling Catheter ABP, PAP, CO, CI - Last Documented Arterial Blood Pressure 119/53 Pulmonary Artery Pressure 45/22 Cardiac Output 5.1 Cardiac Index 2.3 - Constitutional General appearance: Present: cooperative, no acute distress, obese - EENT ENT: Present: hearing grossly normal - Neck Details: Neck is supple, no JVD or lymphadenopathy. - Respiratory Details: Lung sounds are essentially clear throughout, few scattered crackles to his bilateral bases. Respirations are symmetrical and nonlabored. Oxygen saturation are 95% on 3 L nasal cannula. He is achieving 2000 mL on his incentive spirometry. Left pleural chest tube remains to low continuous wall suction -20 cm H2O. No air leak present. Draining thin serosanguineous drainage. 40 mL output in the last 8 hours, 100 mL output in the last 24 hours. - Cardiovascular Details: Regular rhythm and rate. S1 and S2 present, negative for S3, gallop or murmur. Sternum is stable. Heart hugger is in place and he is demonstrating appropriate use. Bedside telemetry showing normal sinus rhythm heart rate 93. Atrial and ventricular epicardial pacemaker wires intact and grounded. Trace edema to his bilateral lower extremities. Knee-high SUSIE hose and sequential compression devices in place to his bilateral lower extremities. - Gastrointestinal Gastrointestinal Comment(s): Abdomen is soft, nontender and nondistended. Active bowel sounds all 4 abdominal quadrants. He is tolerating oral intake. Passing flatus. No bowel movement since surgery. - Genitourinary Genitourinary Comment(s): Adequate urine output with straight cath this a.m. 650 mL output the last 8 hours. Clear yellow urine. Urine retention. - Integumentary Integumentary Comment(s): Midline sternal incision clean dry and well approximated. No redness or drainage. Dermabond dressing clean and dry. Bilateral radial artery endoscopic harvesting clean dry and well approximated. Dermabond dressing clean and dry. No drainage or redness. Skin is warm, dry and siddiqui. - Neurologic Neurologic: Present: CNII-XII intact - Musculoskeletal Musculoskeletal: Present: gait normal, strength equal bilaterally - Psychiatric Psychiatric: Present: A&O x's 3, appropriate affect, intact judgment & insight - Allied health notes Allied health notes reviewed: nursing - Labs CBC & Chem 7: 05/17/17 04:12 05/17/17 04:12 Labs: Abnormal Lab Results - Last 24 Hours (Table) 05/16/17 05/16/17 05/16/17 Range/Units 11:01 13:06 18:01 RBC (4.30-5.90) m/uL Hgb (13.0-17.5) gm/dL Hct (39.0-53.0) % Plt Count (150-450) k/uL Sodium (137-145) mmol/L Glucose (74-99) mg/dL POC Glucose (mg/dL) 102 H 107 H 107 H (75-99) mg/dL Total Protein (6.3-8.2) g/dL Albumin (3.5-5.0) g/dL 05/17/17 05/17/17 05/17/17 Range/Units 03:15 04:12 04:12 RBC 3.64 L (4.30-5.90) m/uL Hgb 11.1 L (13.0-17.5) gm/dL Hct 35.5 L (39.0-53.0) % Plt Count 127 L (150-450) k/uL Sodium 136 L (137-145) mmol/L Glucose 117 H (74-99) mg/dL POC Glucose (mg/dL) 109 H (75-99) mg/dL Total Protein 5.1 L (6.3-8.2) g/dL Albumin 3.0 L (3.5-5.0) g/dL 05/17/17 Range/Units 07:29 RBC (4.30-5.90) m/uL Hgb (13.0-17.5) gm/dL Hct (39.0-53.0) % Plt Count (150-450) k/uL Sodium (137-145) mmol/L Glucose (74-99) mg/dL POC Glucose (mg/dL) 104 H (75-99) mg/dL Total Protein (6.3-8.2) g/dL Albumin (3.5-5.0) g/dL - Imaging and Cardiology Chest x-ray: report reviewed, image reviewed Assessment and Plan (1) Postoperative urinary retention Current Visit: Yes Status: Acute Code(s): N99.89 - OTH POSTPROCEDURAL COMPLICATIONS AND DISORDERS OF SYS; R33.8 - OTHER RETENTION OF URINE SNOMED Code(s): 071436550 (2) Coronary artery disease Current Visit: Yes Status: Chronic Code(s): I25.10 - ATHSCL HEART DISEASE OF [place] CORONARY ARTERY W/O ANG PCTRS SNOMED Code(s): 78742641 (3) Family history of heart disease Current Visit: Yes Status: Chronic Code(s): Z82.49 - FAMILY HX OF ISCHEM HEART DIS AND OTH DIS OF THE CIRC SYS SNOMED Code(s): 955505599 (4) Hypertension Current Visit: Yes Status: Chronic Code(s): I10 - ESSENTIAL (PRIMARY) HYPERTENSION SNOMED Code(s): 37412435 (5) Obesity (BMI 30-39.9) Current Visit: Yes Status: Chronic Code(s): E66.9 - OBESITY, UNSPECIFIED SNOMED Code(s): 541226162 (6) Osteoarthritis Current Visit: Yes Status: Chronic Code(s): M19.90 - UNSPECIFIED OSTEOARTHRITIS, UNSPECIFIED SITE SNOMED Code(s): 730367511 (7) Ischemic cardiomyopathy Current Visit: Yes Status: Acute Code(s): I25.5 - ISCHEMIC CARDIOMYOPATHY SNOMED Code(s): 210906478 (8) Hyperlipidemia Current Visit: Yes Status: Acute Code(s): E78.5 - HYPERLIPIDEMIA, UNSPECIFIED SNOMED Code(s): 62287235 (9) Tobacco dependence in remission Current Visit: Yes Status: Acute Code(s): F17.201 - NICOTINE DEPENDENCE, UNSPECIFIED, IN REMISSION SNOMED Code(s): 463200226 (10) History of vein stripping Current Visit: Yes Status: Acute Code(s): Z98.890 - OTHER SPECIFIED POSTPROCEDURAL STATES SNOMED Code(s): 177891069 Plan: 1. Continue aspirin, statin, Plavix, heparin subcu, beta rosita. Will increase beta rosita therapy as tolerated. 2. Continue Norvasc for radial artery spasm prevention. Do not discontinue. 3. Wean O2 as tolerated. Encourage incentive spirometry use 10 times every hour while awake. 4. Increase activity as tolerated, up to chair, ambulate as able. PT/OT/ cardiac rehab following. 5. GI DVT prophylaxis. 6. Will monitor daily labs and x-rays. 7. Blood sugar control per primary care service. 8. Discontinue left pleural chest tube today. 9. We will start patient on Flomax 0.4 mg by mouth daily for urine retention. 10. More recommendations as patient progresses. Transferred to [address] [place] [id number] when bed available. Time with Patient: Greater than 30
[2017-05-17 12:03] LABS: Glucose,Whole Blood 143 mg/dL (75-99)
[2017-05-17] MEDS ORDERED: FUROSEMIDE 10 MG/ML 2 ML VIAL IV ONE (13:19)
--- NOTE | 2017-05-17 13:20 | P.PN ---
Subjective Progress Note Date: 05/17/17 Principal diagnosis: Status post CABG postoperative day # 3 This is a 71-year-old white male presented initially with anginal symptoms, cardiac catheterization done in the last 2 weeks showed severe three-vessel disease, including occlusion of the left anterior descending coronary artery, occlusion of the distal circumflex coronary artery. Stress testing was suggestive of reversible ischemia, and the patient was advised to undergo CABG which was done today electively. Patient underwent FALK to LAD, sequential right radial artery graft to the first and second obtuse marginal, left radial artery graft to the right coronary artery and bilateral endovascular radial artery harvest and FRANCIS by anesthesia. Postoperatively, patient is on mechanical ventilation, and this consult was initiated. His last cardiac catheterization was done on 05/01/2017. His previous cardiac workup showed LV dysfunction with ejection fraction of 25-30%. Patient was reevaluated today on 05/15/2017, doing well, relatively asymptomatic , extubated last night uneventfully. No cough no wheezing no shortness of breath, chest x-ray is showing mostly postoperative changes otherwise unremarkable. Labs were all reviewed. Reevaluated today on 05/16/2017, patient is asymptomatic, remains on nasal cannula, doing well, sitting in the chair, relatively asymptomatic. Labs and chest x-ray were reviewed. The chest x-ray is showing postoperative changes and atelectasis as expected. Reevaluated today on 05/17/2017, patient is doing quite well, remains on 3 L nasal cannula, able to get out of bed, ambulating in the hallway, chest x-ray shows minimal atelectasis at the bases, and postoperative changes. Patient again is relatively asymptomatic, no cough no wheezing no shortness of breath. No nausea no vomiting no abdominal pain. His labs and his chest x-ray were all reviewed. Objective - Vital Signs Vital signs: Vital Signs Temp 97.7 F 05/17/17 12:00 Pulse 79 05/17/17 12:00 Resp 21 05/17/17 12:00 BP 137/81 05/17/17 12:00 Pulse Ox 91 L 05/17/17 12:00 Intake & Output 05/16/17 05/17/17 05/17/17 18:59 06:59 18:59 Intake Total 600 850 Output Total 458 755 0 Balance 142 95 0 Weight 116.8 kg Intake: IV 230 Lactated Ringers 1,000 ml 200 @ 20 mls/hr IV .Q24H [facility] Rx#:[id number] pressure bag 30 Oral 370 850 Output: Chest Tube Drainage 68 105 Chest Tube Left Pleural/ 50 Mediastinal Pleural Catheter Left 18 105 Drainage 10 Right Arm 10 Urine 380 650 0 Other: Voiding Method Indwelling Catheter Urinal ABP, PAP, CO, CI - Last Documented Arterial Blood Pressure 119/53 Pulmonary Artery Pressure 45/22 Cardiac Output 5.1 Cardiac Index 2.3 - Exam Physical Exam: Revealed a 71-year-old white male in no distress. On nasal cannula, HEENT:[Neck is supple.] [No neck masses.] [No thyromegaly.] [No JVD.] Chest: [Diminished breath sounds at the bases, crackles at the left base, no rhonchi, no wheezes. No chest wall tenderness.] Cardiac Exam: [Normal S1 and S2, no S3 gallop, no murmur.] Abdomen: [Soft, nontender, no megaly, no rebound, no guarding, normal bowel sounds.] Extremities: [No clubbing, no edema, no cyanosis.] Neurological Exam: [No focal neurologic deficit.] Lymphatics: No lymphadenopathy. Psychiatric: Normal mood affect and mental status examination. - Labs CBC & Chem 7: 05/17/17 04:12 05/17/17 04:12 Labs: Abnormal Lab Results - Last 24 Hours (Table) 05/16/17 05/17/17 05/17/17 Range/Units 18:01 03:15 04:12 RBC (4.30-5.90) m/uL Hgb (13.0-17.5) gm/dL Hct (39.0-53.0) % Plt Count (150-450) k/uL Sodium 136 L (137-145) mmol/L Glucose 117 H (74-99) mg/dL POC Glucose (mg/dL) 107 H 109 H (75-99) mg/dL Total Protein 5.1 L (6.3-8.2) g/dL Albumin 3.0 L (3.5-5.0) g/dL 05/17/17 05/17/17 05/17/17 Range/Units 04:12 07:29 12:01 RBC 3.64 L (4.30-5.90) m/uL Hgb 11.1 L (13.0-17.5) gm/dL Hct 35.5 L (39.0-53.0) % Plt Count 127 L (150-450) k/uL Sodium (137-145) mmol/L Glucose (74-99) mg/dL POC Glucose (mg/dL) 104 H 143 H (75-99) mg/dL Total Protein (6.3-8.2) g/dL Albumin (3.5-5.0) g/dL Assessment and Plan Assessment: Impression: 1 status post CABG 4, with FALK to LAD, sequential right radial artery graft to first and second obtuse marginal, left radial artery graft to right coronary artery, postoperative day #3 2 postoperative atelectasis as noted on the chest x-ray, expected finding postoperatively. 3 history of ischemic cardiomyopathy and severely impaired LV function. 4 history of hypertension History of degenerative joint disease. Recommendation: Continue present supportive care measures, incentive spirometry , ambulation, bronchodilators, likely transfer to a medical floor/selective today. Time with Patient: Less than 30
[2017-05-17 16:58] LABS: Glucose,Whole Blood 105 mg/dL (75-99)
--- NOTE | 2017-05-17 17:01 | PN ---
PROGRESS NOTE Mr. Mittal is status post bypass surgery, doing remarkably well. Remained in sinus rhythm. Decent blood pressure. Vital signs are stable. Incentive spirometry is excellent. S1, S2 heard normally. Lungs reveal improved air entry. Abdomen is soft. Rest of physical exam is unchanged. Plan is to continue current medications, incentive spirometry, pulmonary toilet and move him to telemetry. MMODL / IJN: [id number] /
[2017-05-17] MEDS: AMIODARONE 450 MG in DEXTROSE 5% IN WATER 250 ML IV SCH ×2 (17:33)
[2017-05-17] MEDS: INSULIN ASPART 100 UNIT/ML 1 ML 10 ML VIAL SQ SCH ×2 (17:34→21:22)
[2017-05-17] MEDS ORDERED: DEXTROSE 5% IN WATER 100 ML with AMIODARONE 150 MG IV ONE ×2 (17:45→18:15)
[2017-05-17 18:24] LABS: Potassium 3.9 mmol/L (3.5-5.1)
--- NOTE | 2017-05-17 18:37 | PN ---
PROGRESS NOTE DATE OF SERVICE: 05/17/2017 Patient remains in ICU, is weaned down to 3 L of oxygen per nasal cannula. Has been ambulating in the hallway. Per nursing staff, he is status post coronary artery bypass grafting. VITAL SIGNS: Temperature of 97.7, pulse 79, respiration 21, blood pressure 137/81, O2 saturation 91%. The patient is awake, alert, oriented. He is in no acute distress. HEENT: Atraumatic, normocephalic. Pupils equal and reactive to light. Extraocular movements intact. Buccal mucosa is fair. Neck is supple. No goiter or lymphadenopathy. JVD is negative. No carotid bruit heard. LUNGS: Decreased breath sounds with some minimal crackles in both lung bases. Heart is regular rate and rhythm without any murmurs or gallop rhythm. Abdomen is soft, nontender, nondistended. Bowel sounds positive. EXTREMITIES: No edema, clubbing or cyanosis. NEUROLOGICAL EXAMINATION: Cranial nerves 2 through 12 grossly intact. No gross motor or sensory deficit. LYMPHATICS: No lymphadenopathy. PSYCHIATRIC: Mood and affect normal. LABS: White blood count 7.8, hemoglobin 11.1, hematocrit 35.5, platelet count 127. Sodium 136, potassium 4.4, chloride 103, bicarb 24, BUN 14, creatinine 0.8, glucose 117. ASSESSMENT: 1. Status post coronary artery bypass grafting, postoperative day #3. 2. Postoperative atelectasis. 3. History of ischemic cardiomyopathy with severely impaired left ventricular function. 4. History of hypertension. 5. Degenerative joint disease. Patient remains clinically stable. Activity is increased. We are monitoring hemoglobin and hematocrit. Continue with incentive spirometry. Cardiothoracic surgery is following. Plan is to transfer the patient to the medical floor with possible discharge in about 48 hours if cleared by all the consultants. MMODL / IJN: [id number] /
[2017-05-17] MEDS ORDERED: Potassium Replacement Protocol 1 EACH MISC MISCELLANE PRN (18:45)
[2017-05-17] MEDS ORDERED: POTASSIUM CHLORIDE ER 20 MEQ TAB.ER PO SCH (19:00)
[2017-05-17] MEDS ORDERED: Magnesium Replacement Protocol 1 EACH MISC MISCELLANE PRN (19:40)
[2017-05-17 20:11] LABS: Glucose,Whole Blood 139 mg/dL (75-99)
[2017-05-17] MEDS: MAGNESIUM SULFATE-D5W PMX 1 GM in DEXTROSE/WATER 1 100ML.BAG IVPB SCH ×2 (21:05→21:42)
[2017-05-17] MEDS: SENNOSIDES-DOCUSATE SODIUM 1 EACH TAB PO SCH (21:47)
[2017-05-18] MEDS: HEPARIN SODIUM,PORCINE 5,000 UNIT/ML 1 ML VIAL SQ SCH ×4 (01:58→22:48)
[2017-05-18] MEDS: HYDROcodone/APAP 5-325MG 1 EACH TAB PO PRN ×4 (02:02→22:48)
[2017-05-18] MEDS: AMIODARONE 450 MG in DEXTROSE 5% IN WATER 250 ML IV SCH ×6 (02:17→16:56)
[2017-05-18 04:45] LABS: HCT 33.6 % (39.0-53.0); HGB 10.9 gm/dL (13.0-17.5); MCH 30.6 pg (25.0-35.0); MCHC 32.5 g/dL (31.0-37.0); MCV 94.2 fL (80.0-100.0); Platelet Count 153 k/uL (150-450); RBC 3.57 m/uL (4.30-5.90); RDW 13.3 % (11.5-15.5)
[2017-05-18 05:08] LABS: ALT 30 U/L (21-72); AST 30 U/L (17-59); Albumin 2.8 g/dL (3.5-5.0); Alkaline Phosphatase 44 U/L (38-126); Anion Gap 9 mmol/L; Blood Urea Nitrogen 15 mg/dL (9-20); Calcium 8.2 mg/dL (8.4-10.2); Carbon Dioxide 25 mmol/L (22-30); Chloride 103 mmol/L (98-107); Glucose 105 mg/dL (74-99); Magnesium 2.3 mg/dL (1.6-2.3); Potassium 4.4 mmol/L (3.5-5.1); Sodium 137 mmol/L (137-145); Total Bilirubin 0.6 mg/dL (0.2-1.3)
[2017-05-18] MEDS: IPRATROPIUM-ALBUTEROL 3 ML NEB INHALATION SCH ×4 (07:22→21:05)
[2017-05-18 07:23] LABS: Glucose,Whole Blood 104 mg/dL (75-99)
[2017-05-18 08:10] LABS: Appearance,Urine Clear (Clear); Bilirubin,Urine Negative (Negative); Blood,Urine Negative (Negative); Color,Urine Yellow; Glucose,Urine (UA) Negative (Negative); Ketones,Urine Negative (Negative); Leukocyte Esterase,Urine Negative (Negative); Nitrite,Urine Negative (Negative); Protein,Urine Negative (Negative); Specific Gravity,Urine 1.012 (1.001-1.035); Urobilinogen,Urine <2.0 mg/dL (<2.0)
[2017-05-18] MEDS: INSULIN ASPART 100 UNIT/ML 1 ML 10 ML VIAL SQ SCH ×4 (08:43→20:01)
[2017-05-18] MEDS: TAMSULOSIN 0.4 MG CAP.ER.24H PO SCH (08:44)
[2017-05-18] MEDS: PANTOPRAZOLE 40 MG TABLET PO SCH (08:44)
[2017-05-18] MEDS: CLOPIDOGREL 75 MG TAB PO SCH (08:45)
[2017-05-18] MEDS: ASPIRIN 325 MG TAB PO SCH (08:45)
[2017-05-18] MEDS: ATORVASTATIN 40 MG TAB PO SCH (08:45)
[2017-05-18] MEDS: AMIODARONE 200 MG TAB PO SCH ×2 (08:48→20:01)
[2017-05-18 09:35] LABS: Glucose,Whole Blood 125 mg/dL (75-99)
--- NOTE | 2017-05-18 09:43 | XR ---
EXAMINATION TYPE: XR chest 1V portable DATE OF EXAM: 05/18/2017 HISTORY: Postop CABG. REFERENCE: Previous study dated 05/17/2017. FINDINGS: There has been a midline sternotomy. The heart is mildly prominent. There is minimal atelec tasis at the left lung base. There are tiny, bilateral effusions. IMPRESSION: IMPROVING POSTSURGICAL CHANGE.
[2017-05-18] MEDS: METOPROLOL TARTRATE 12.5 MG TAB PO SCH ×2 (12:17→22:03)
[2017-05-18 12:39] LABS: Basophils # (A) 0.1 k/uL (0-0.2); Basophils % (A) 1 %; Eosinophils # (A) 0.2 k/uL (0-0.7); Eosinophils % (A) 4 %; HCT 34.1 % (39.0-53.0); HGB 10.8 gm/dL (13.0-17.5); Lymphocytes # (A) 1.2 k/uL (1.0-4.8); Lymphocytes % (A) 18 %; MCH 31.3 pg (25.0-35.0); MCHC 31.7 g/dL (31.0-37.0); MCV 98.6 fL (80.0-100.0); Mean Platelet Volume 7.1; Monocytes # (A) 0.5 k/uL (0-1.0); Monocytes % (A) 7 %; Neutrophils # (A) 4.7 k/uL (1.3-7.7); Neutrophils % (A) 69 %; Platelet Count 154 k/uL (150-450); RBC 3.46 m/uL (4.30-5.90); RDW 13.2 % (11.5-15.5); WBC 6.8 k/uL (3.8-10.6)
[2017-05-18] MEDS ORDERED: FUROSEMIDE 10 MG/ML 2 ML VIAL IV ONE (12:45)
[2017-05-18] MEDS: amLODIPine 5 MG TAB PO SCH (12:46)
--- NOTE | 2017-05-18 13:03 | P.PN ---
Subjective Progress Note Date: 05/18/17 Principal diagnosis: Status post CABG postoperative day # 4 This is a 71-year-old white male presented initially with anginal symptoms, cardiac catheterization done in the last 2 weeks showed severe three-vessel disease, including occlusion of the left anterior descending coronary artery, occlusion of the distal circumflex coronary artery. Stress testing was suggestive of reversible ischemia, and the patient was advised to undergo CABG which was done today electively. Patient underwent FALK to LAD, sequential right radial artery graft to the first and second obtuse marginal, left radial artery graft to the right coronary artery and bilateral endovascular radial artery harvest and FRANCIS by anesthesia. Postoperatively, patient is on mechanical ventilation, and this consult was initiated. His last cardiac catheterization was done on 05/01/2017. His previous cardiac workup showed LV dysfunction with ejection fraction of 25-30%. Patient was reevaluated today on 05/15/2017, doing well, relatively asymptomatic , extubated last night uneventfully. No cough no wheezing no shortness of breath, chest x-ray is showing mostly postoperative changes otherwise unremarkable. Labs were all reviewed. Reevaluated today on 05/16/2017, patient is asymptomatic, remains on nasal cannula, doing well, sitting in the chair, relatively asymptomatic. Labs and chest x-ray were reviewed. The chest x-ray is showing postoperative changes and atelectasis as expected. Reevaluated today on 05/17/2017, patient is doing quite well, remains on 3 L nasal cannula, able to get out of bed, ambulating in the hallway, chest x-ray shows minimal atelectasis at the bases, and postoperative changes. Patient again is relatively asymptomatic, no cough no wheezing no shortness of breath. No nausea no vomiting no abdominal pain. His labs and his chest x-ray were all reviewed. Reevaluated today on 05/18/2017, patient finished is doing well relatively asymptomatic, had an episode of A. fib with RVR yesterday, presently in sinus rhythm. Patient was treated with amiodarone, he is off oxygen and presently on room air. Doing great with incentive spirometry and she being almost 2000 mL. Patient isn't ready ambulating, earlier today he had a of diaphoresis, but asymptomatic at the time of my evaluation. Objective - Vital Signs Vital signs: Vital Signs Temp 97.5 F L 05/18/17 12:00 Pulse 78 05/18/17 12:00 Resp 14 05/18/17 12:00 BP 98/63 05/18/17 12:00 Pulse Ox 95 05/18/17 12:00 Intake & Output 05/17/17 05/18/17 05/18/17 18:59 06:59 18:59 Intake Total 650 1175.1 99.7 Output Total 250 875 200 Balance 400 300.1 -100.3 Weight 114.6 kg Intake: IV 150 616.1 99.7 Amiodarone 450 mg In 266.1 99.7 Dextrose 5% in Water 250 ml @ 1 MG/MIN 34.53 mls/ hr IV .Q7H31M [facility] Rx#: [id number] Dextrose 5% in Water 100 150 150 ml @ 618 mls/hr IV .Q10M [facility] with Amiodarone 150 mg Rx#:[id number] Magnesium Sulfate-D5w Pmx 200 1 gm In Dextrose/Water 1 100ml.bag @ 100 mls/hr IVPB Q1H [facility] Rx#: [id number] Intake, IV Titration 259 Amount Amiodarone 450 mg In 259 Dextrose 5% in Water 250 ml @ 1 MG/MIN 34.53 mls/ hr IV .Q7H31M [facility] Rx#: [id number] Oral 500 300 Output: Urine 250 875 200 Other: Voiding Method Urinal Urinal Urinal ABP, PAP, CO, CI - Last Documented Arterial Blood Pressure 119/53 Pulmonary Artery Pressure 45/22 Cardiac Output 5.1 Cardiac Index 2.3 - Exam Physical Exam: Revealed a 71-year-old white male in no distress. On nasal cannula, HEENT:[Neck is supple.] [No neck masses.] [No thyromegaly.] [No JVD.] Chest: [Diminished breath sounds at the bases, crackles at the left base, no rhonchi, no wheezes. No chest wall tenderness.] Cardiac Exam: [Normal S1 and S2, no S3 gallop, no murmur.] Abdomen: [Soft, nontender, no megaly, no rebound, no guarding, normal bowel sounds.] Extremities: [No clubbing, no edema, no cyanosis.] Neurological Exam: [No focal neurologic deficit.] Lymphatics: No lymphadenopathy. Psychiatric: Normal mood affect and mental status examination. - Labs CBC & Chem 7: 05/18/17 12:18 05/18/17 03:47 Labs: Abnormal Lab Results - Last 24 Hours (Table) 05/17/17 05/17/17 05/18/17 Range/Units 16:57 20:08 03:47 RBC 3.57 L (4.30-5.90) m/uL Hgb 10.9 L (13.0-17.5) gm/dL Hct 33.6 L (39.0-53.0) % Glucose (74-99) mg/dL POC Glucose (mg/dL) 105 H 139 H (75-99) mg/dL Calcium (8.4-10.2) mg/dL Total Protein (6.3-8.2) g/dL Albumin (3.5-5.0) g/dL 05/18/17 05/18/17 05/18/17 Range/Units 03:47 07:22 09:34 RBC (4.30-5.90) m/uL Hgb (13.0-17.5) gm/dL Hct (39.0-53.0) % Glucose 105 H (74-99) mg/dL POC Glucose (mg/dL) 104 H 125 H (75-99) mg/dL Calcium 8.2 L (8.4-10.2) mg/dL Total Protein 5.0 L (6.3-8.2) g/dL Albumin 2.8 L (3.5-5.0) g/dL 05/18/17 Range/Units 12:18 RBC 3.46 L (4.30-5.90) m/uL Hgb 10.8 L (13.0-17.5) gm/dL Hct 34.1 L (39.0-53.0) % Glucose (74-99) mg/dL POC Glucose (mg/dL) (75-99) mg/dL Calcium (8.4-10.2) mg/dL Total Protein (6.3-8.2) g/dL Albumin (3.5-5.0) g/dL Assessment and Plan Assessment: Impression: 1 status post CABG 4, with FALK to LAD, sequential right radial artery graft to first and second obtuse marginal, left radial artery graft to right coronary artery, postoperative day #4 2 postoperative atelectasis as noted on the chest x-ray, expected finding postoperatively. 3 history of ischemic cardiomyopathy and severely impaired LV function. 4 history of hypertension History of degenerative joint disease. Recommendation: Continue present supportive care measures, incentive spirometry , ambulation, bronchodilators, we'll continue to follow patient is presently overflow from selective. Time with Patient: Less than 30
--- NOTE | 2017-05-18 13:30 | P.PN ---
<Ebenezer Munoz Hector - Last Filed: 05/18/17 13:29> Subjective Progress Note Date: 05/18/17 Principal diagnosis: Severe triple vessel coronary artery disease. Ischemic cardiomyopathy with impaired LV function with an ejection fraction of 25-30%. Previous medical history of hypertension, hyperlipidemia, osteoarthritis, remote history of pneumonia, remote history of tobacco abuse quit smoking 20 years ago, history of vein stripping to his left leg in 2012, family history of coronary artery disease. Obesity. POD #4 off-pump coronary artery bypass graft 4 with the left internal mammary artery to the left anterior descending coronary artery, a sequential right radial artery graft to first and second obtuse marginal coronary arteries, a left radial artery graft to right coronary artery with bilateral endovascular radial artery harvest and intraoperative epi-aortic ultrasound and a transesophageal echocardiogram by anesthesia. Postoperative paroxysmal atrial fibrillation, an expected outcome of surgery. Patient is currently sitting up to the bedside chair. He is in no acute distress. He is tolerating his breakfast. He currently reports that his pain is controlled and rate his pain 3 out of 10 on the pain scale. Oxygen saturation are 96% on room air. He is achieving 1850 mL on his incentive spirometry. He reports that he ambulated in the intensive care unit yesterday and was able to tolerate walking the whole unit. He denies any further complaints of urinary retention or trouble getting a stream of urine started. Objective - Vital Signs Vital signs: Vital Signs Temp 97.5 F L 05/18/17 04:00 Pulse 62 05/18/17 04:00 Resp 19 05/18/17 04:00 BP 85/54 05/18/17 04:00 Pulse Ox 98 05/18/17 04:00 Intake & Output 05/17/17 05/18/17 05/18/17 18:59 06:59 18:59 Intake Total 650 1175.1 16.6 Output Total 250 875 200 Balance 400 300.1 -183.4 Weight 114.6 kg Intake: IV 150 616.1 16.6 Amiodarone 450 mg In 266.1 16.6 Dextrose 5% in Water 250 ml @ 1 MG/MIN 34.53 mls/ hr IV .Q7H31M [facility] Rx#: [id number] Dextrose 5% in Water 100 150 150 ml @ 618 mls/hr IV .Q10M ONE with Amiodarone 150 mg Rx#:[id number] Magnesium Sulfate-D5w Pmx 200 1 gm In Dextrose/Water 1 100ml.bag @ 100 mls/hr IVPB Q1H [facility] Rx#: [id number] Intake, IV Titration 259 Amount Amiodarone 450 mg In 259 Dextrose 5% in Water 250 ml @ 1 MG/MIN 34.53 mls/ hr IV .Q7H31M [facility] Rx#: [id number] Oral 500 300 Output: Urine 250 875 200 Other: Voiding Method Urinal Urinal ABP, PAP, CO, CI - Last Documented Arterial Blood Pressure 119/53 Pulmonary Artery Pressure 45/22 Cardiac Output 5.1 Cardiac Index 2.3 - Constitutional General appearance: Present: cooperative, no acute distress, obese - EENT ENT: Present: hearing grossly normal - Neck Details: Neck is supple, no JVD or lymphadenopathy. - Respiratory Details: Lung sounds are essentially clear throughout, diminished to his bilateral bases. Respirations are symmetrical and nonlabored. Oxygen saturation are 96% on room air. He is achieving 1850 mL on his incentive spirometry. - Cardiovascular Details: Regular rhythm and rate. S1 and S2 present, negative for S3, gallop or murmur. Sternum is stable. Bedside telemetry showing normal sinus rhythm heart rate 71. No further episodes of atrial fibrillation throughout the night. Heart hugger is in place and he is demonstrating appropriate use. Atrial and ventricular epicardial pacemaker wires intact and grounded. Knee-high SUSIE hose and sequential compression devices in place to his bilateral lower extremities. Trace edema to his bilateral lower extremities. - Gastrointestinal Gastrointestinal Comment(s): Abdomen is soft, nontender and nondistended. Active bowel sounds all 4 abdominal quadrants. Tolerating a heart healthy diet. Passing flatus. No bowel movement since surgery. - Genitourinary Genitourinary Comment(s): Urine output is adequate. Clear yellow urine. 625 mL output last 8 hours. - Integumentary Integumentary Comment(s): Midline sternal incision clean dry and well approximated. No drainage or redness present. Dermabond dressing clean and dry. Bilateral radial artery harvest sites clean dry and well approximated. No drainage or redness present. Dermabond dressing clean and dry. Skin is warm, dry and siddiqui. - Neurologic Neurologic: Present: CNII-XII intact - Musculoskeletal Musculoskeletal: Present: gait normal, strength equal bilaterally - Psychiatric Psychiatric: Present: A&O x's 3, appropriate affect, intact judgment & insight - Allied health notes Allied health notes reviewed: nursing - Labs CBC & Chem 7: 05/18/17 12:18 05/18/17 03:47 Labs: Abnormal Lab Results - Last 24 Hours (Table) 05/17/17 05/17/17 05/17/17 Range/Units 12:01 16:57 20:08 RBC (4.30-5.90) m/uL Hgb (13.0-17.5) gm/dL Hct (39.0-53.0) % Glucose (74-99) mg/dL POC Glucose (mg/dL) 143 H 105 H 139 H (75-99) mg/dL Calcium (8.4-10.2) mg/dL Total Protein (6.3-8.2) g/dL Albumin (3.5-5.0) g/dL 05/18/17 05/18/17 05/18/17 Range/Units 03:47 03:47 07:22 RBC 3.57 L (4.30-5.90) m/uL Hgb 10.9 L (13.0-17.5) gm/dL Hct 33.6 L (39.0-53.0) % Glucose 105 H (74-99) mg/dL POC Glucose (mg/dL) 104 H (75-99) mg/dL Calcium 8.2 L (8.4-10.2) mg/dL Total Protein 5.0 L (6.3-8.2) g/dL Albumin 2.8 L (3.5-5.0) g/dL - Imaging and Cardiology Chest x-ray: report reviewed, image reviewed Assessment and Plan (1) Postoperative urinary retention Current Visit: Yes Status: Acute Code(s): N99.89 - OTH POSTPROCEDURAL COMPLICATIONS AND DISORDERS OF SYS; R33.8 - OTHER RETENTION OF URINE SNOMED Code(s): 943756408 (2) Coronary artery disease Current Visit: Yes Status: Chronic Code(s): I25.10 - ATHSCL HEART DISEASE OF [place] CORONARY ARTERY W/O ANG PCTRS SNOMED Code(s): 21502578 (3) Family history of heart disease Current Visit: Yes Status: Chronic Code(s): Z82.49 - FAMILY HX OF ISCHEM HEART DIS AND OTH DIS OF THE CIRC SYS SNOMED Code(s): 391989389 (4) Hypertension Current Visit: Yes Status: Chronic Code(s): I10 - ESSENTIAL (PRIMARY) HYPERTENSION SNOMED Code(s): 49867309 (5) Obesity (BMI 30-39.9) Current Visit: Yes Status: Chronic Code(s): E66.9 - OBESITY, UNSPECIFIED SNOMED Code(s): 021036740 (6) Osteoarthritis Current Visit: Yes Status: Chronic Code(s): M19.90 - UNSPECIFIED OSTEOARTHRITIS, UNSPECIFIED SITE SNOMED Code(s): 953894568 (7) Ischemic cardiomyopathy Current Visit: Yes Status: Acute Code(s): I25.5 - ISCHEMIC CARDIOMYOPATHY SNOMED Code(s): 178625935 (8) Hyperlipidemia Current Visit: Yes Status: Acute Code(s): E78.5 - HYPERLIPIDEMIA, UNSPECIFIED SNOMED Code(s): 73579263 (9) Tobacco dependence in remission Current Visit: Yes Status: Acute Code(s): F17.201 - NICOTINE DEPENDENCE, UNSPECIFIED, IN REMISSION SNOMED Code(s): 269672687 (10) History of vein stripping Current Visit: Yes Status: Acute Code(s): Z98.890 - OTHER SPECIFIED POSTPROCEDURAL STATES SNOMED Code(s): 417596658 (11) Postoperative atrial fibrillation Current Visit: Yes Status: Acute Code(s): I97.89 - OTH POSTPROC COMP AND DISORDERS OF THE CIRC SYS, NEC; I48.91 - UNSPECIFIED ATRIAL FIBRILLATION SNOMED Code(s): 51189772 Plan: 1. Continue aspirin, statin, Plavix, heparin subcu, beta rosita. Will increase beta rosita therapy as tolerated. 2. Continue Norvasc for radial artery spasm prevention. Do not discontinue. 3. Wean O2 as tolerated. Encourage incentive spirometry use 10 times every hour while awake. 4. Increase activity as tolerated, up to chair, ambulate as able. PT/OT/ cardiac rehab following. 5. GI DVT prophylaxis. 6. Will monitor daily labs and x-rays. 7. Blood sugar control per primary care service. 8. Continue amiodarone drip until current bag is finished, we will initiate amiodarone 400 mg by mouth twice a day 1 week, then amiodarone 200 mg by mouth twice a day 1 week and then 200 mg by mouth daily thereafter. 9. We will continue the patient on Flomax 0.4 mg by mouth daily for urine retention. 10. Lasix 20 mg 1 today. 11. We will remove his epicardial pacemaker wires in the a.m. 12. More recommendations as patient progresses. Transferred to [address] [place] [id number] when bed available. Discharge planning in place, anticipate discharge home within the next 24 hours. Time with Patient: Greater than 30 <Christiano Singh - Last Filed: 05/18/17 13:34> Objective - Vital Signs Vital signs: Vital Signs Temp 97.5 F L 05/18/17 12:00 Pulse 78 05/18/17 12:00 Resp 14 05/18/17 12:00 BP 98/63 05/18/17 12:00 Pulse Ox 95 05/18/17 12:00 Intake & Output 05/17/17 05/18/17 05/18/17 18:59 06:59 18:59 Intake Total 650 1175.1 616.4 Output Total 250 875 425 Balance 400 300.1 191.4 Weight 114.6 kg Intake: IV 150 616.1 116.4 Amiodarone 450 mg In 266.1 116.4 Dextrose 5% in Water 250 ml @ 1 MG/MIN 34.53 mls/ hr IV .Q7H31M [facility] Rx#: [id number] Dextrose 5% in Water 100 150 150 ml @ 618 mls/hr IV .Q10M ONE with Amiodarone 150 mg Rx#:[id number] Magnesium Sulfate-D5w Pmx 200 1 gm In Dextrose/Water 1 100ml.bag @ 100 mls/hr IVPB Q1H [facility] Rx#: [id number] Intake, IV Titration 259 Amount Amiodarone 450 mg In 259 Dextrose 5% in Water 250 ml @ 1 MG/MIN 34.53 mls/ hr IV .Q7H31M [facility] Rx#: [id number] Oral 500 300 500 Output: Urine 250 875 425 Other: Voiding Method Urinal Urinal Urinal ABP, PAP, CO, CI - Last Documented Arterial Blood Pressure 119/53 Pulmonary Artery Pressure 45/22 Cardiac Output 5.1 Cardiac Index 2.3 - Labs CBC & Chem 7: 05/18/17 12:18 05/18/17 03:47 Labs: Abnormal Lab Results - Last 24 Hours (Table) 05/17/17 05/17/17 05/18/17 Range/Units 16:57 20:08 03:47 RBC 3.57 L (4.30-5.90) m/uL Hgb 10.9 L (13.0-17.5) gm/dL Hct 33.6 L (39.0-53.0) % Glucose (74-99) mg/dL POC Glucose (mg/dL) 105 H 139 H (75-99) mg/dL Calcium (8.4-10.2) mg/dL Total Protein (6.3-8.2) g/dL Albumin (3.5-5.0) g/dL 05/18/17 05/18/17 05/18/17 Range/Units 03:47 07:22 09:34 RBC (4.30-5.90) m/uL Hgb (13.0-17.5) gm/dL Hct (39.0-53.0) % Glucose 105 H (74-99) mg/dL POC Glucose (mg/dL) 104 H 125 H (75-99) mg/dL Calcium 8.2 L (8.4-10.2) mg/dL Total Protein 5.0 L (6.3-8.2) g/dL Albumin 2.8 L (3.5-5.0) g/dL 05/18/17 Range/Units 12:18 RBC 3.46 L (4.30-5.90) m/uL Hgb 10.8 L (13.0-17.5) gm/dL Hct 34.1 L (39.0-53.0) % Glucose (74-99) mg/dL POC Glucose (mg/dL) (75-99) mg/dL Calcium (8.4-10.2) mg/dL Total Protein (6.3-8.2) g/dL Albumin (3.5-5.0) g/dL Assessment and Plan Plan: The patient was seen and examined. I agree with the above assessment and plan. The patient was able to spontaneously void last night. He is currently on Flomax and has had no further urinary retention. He was given another dose of Lasix today. Otherwise he remains stable. He did have some atrial fibrillation with rapid ventricular response last night which converted to normal sinus rhythm with amiodarone. He is still awaiting transfer to [facility] care. He will likely be discharged home within the next 24-48 hours.
--- NOTE | 2017-05-18 14:57 | PN ---
PROGRESS NOTE Mr. connor had an episode of what seems like diaphoresis that started off spontaneously without obvious precipitating factors and once he was settled in the bed, he feels better. This spontaneous episode of diaphoresis occurred while he was sitting in the chair. His blood pressure and heart rate were normal and the EKG and the rhythm strip revealed sinus rhythm. He is asymptomatic. Blood pressure is good. S1-S2 heard normally. Lungs are clear. Abdomen and lower exam unchanged. Plan is to continue current medications. Obtain an EKG. I am suggesting that we keep him in the ICU today rather than move him to telemetry. MMODL / IJN: [id number] /
[2017-05-18 16:57] LABS: Glucose,Whole Blood 127 mg/dL (75-99)
[2017-05-18] MEDS: DEXTROSE 5% IN WATER 100 ML with AMIODARONE 150 MG IV ONE ×2 (17:26→18:44)
[2017-05-18] MEDS ORDERED: ALBUMIN HUMAN 5% 250 ML in EMPTY BAG 1 BAG IVPB ONE (18:00)
--- NOTE | 2017-05-18 19:54 | PN ---
PROGRESS NOTE DATE OF SERVICE: 05/18/2017 Patient is seen in ICU at the bedside. He is status post coronary bypass grafting day #4. Sitting up in chair. VITAL SIGNS: Temperature of 97.5, pulse 78, respiration 14, blood pressure 98/63, O2 saturation 95%. PHYSICAL EXAMINATION: Patient is awake, alert, in no acute distress. HEENT atraumatic, normocephalic. Pupils equal and reactive to light. Extraocular movements intact. Buccal mucosa is fair. NECK: Supple. No goiter, lymphadenopathy. JVD is negative. No carotid bruit heard. Lungs have decreased breath sounds with minimal crackles at the bases. Heart is regular rate and rhythm without any murmurs, gallop rhythm. ABDOMEN: Soft, obese. Bowel sounds positive. EXTREMITIES: No edema, clubbing or cyanosis. Neurological examination: Cranial nerves 2-12 grossly intact. No gross motor or sensory deficits. EXTREMITIES: No edema, clubbing or cyanosis. LYMPHATICS: No lymphadenopathy. Psychiatric: No mood or affect change. Skin is warm, dry and intact. LABS: CBC white blood count 6.8, hemoglobin 10.8, hematocrit 34.1, and platelet count 154. Chemical profile sodium 137, potassium 4.4, chloride 103, bicarb 25, BUN 15, creatinine 0.7, glucose 105. ASSESSMENT: 1. Coronary artery bypass grafting, postoperative day number 1. 2. Postoperative atelectasis. 3. History of ischemic cardiomyopathy with severely impaired left ventricular function. 4. History of hypertension. 5. Degenerative joint disease. The patient has been has been cleared to be transferred to telemetry by Cardiology service. The plan is to continue all current medication. Further recommendations pending patient clinical course. MMODL / IJN: [id number] /
[2017-05-18 20:00] LABS: Glucose,Whole Blood 118 mg/dL (75-99)
[2017-05-18] MEDS: SENNOSIDES-DOCUSATE SODIUM 1 EACH TAB PO SCH (20:01)
[2017-05-18] MEDS ORDERED: AMIODARONE 450 MG in DEXTROSE 5% IN WATER 250 ML IV SCH ×2 (20:30)
[2017-05-19 02:31] LABS: Glucose,Whole Blood 126 mg/dL (75-99)
[2017-05-19 04:22] LABS: HGB 10.1 gm/dL (13.0-17.5); MCH 30.5 pg (25.0-35.0); MCHC 31.6 g/dL (31.0-37.0); MCV 96.3 fL (80.0-100.0); Mean Platelet Volume 7.2; Platelet Count 172 k/uL (150-450); RBC 3.32 m/uL (4.30-5.90); RDW 13.4 % (11.5-15.5)
[2017-05-19 04:32] LABS: ALT 34 U/L (21-72); AST 39 U/L (17-59); Albumin 2.9 g/dL (3.5-5.0); Alkaline Phosphatase 51 U/L (38-126); Anion Gap 10 mmol/L; Blood Urea Nitrogen 16 mg/dL (9-20); Calcium 8.2 mg/dL (8.4-10.2); Carbon Dioxide 26 mmol/L (22-30); Chloride 102 mmol/L (98-107); Glucose 104 mg/dL (74-99); Magnesium 2.1 mg/dL (1.6-2.3); Sodium 138 mmol/L (137-145); Total Bilirubin 0.6 mg/dL (0.2-1.3)
[2017-05-19] MEDS: HYDROcodone/APAP 5-325MG 1 EACH TAB PO PRN ×4 (06:37→23:07)
--- NOTE | 2017-05-19 07:16 | XR ---
EXAMINATION TYPE: XR chest 2V DATE OF EXAM: 05/19/2017 COMPARISON: 05/18/2017 HISTORY: Post cardiac surgery TECHNIQUE: Frontal and lateral views of the chest are obtained. FINDINGS: Trace pleural effusions blunts the costophrenic angles. No pulmonary vascular congestion. Post CABG changes of the chest are seen with mild cardiomegaly and scattered left basilar platelike a telectasis. Osseous structures are intact. IMPRESSION: Stable trace bilateral pleural effusions and left basilar subsegmental atelectasis.
[2017-05-19 07:31] LABS: Glucose,Whole Blood 105 mg/dL (75-99)
[2017-05-19] MEDS: INSULIN ASPART 100 UNIT/ML 1 ML 10 ML VIAL SQ SCH ×4 (08:29→21:07)
[2017-05-19] MEDS: PANTOPRAZOLE 40 MG TABLET PO SCH (08:30)
[2017-05-19] MEDS: AMIODARONE 200 MG TAB PO SCH ×2 (08:31→21:12)
[2017-05-19] MEDS: ASPIRIN 325 MG TAB PO SCH (08:31)
[2017-05-19] MEDS: CLOPIDOGREL 75 MG TAB PO SCH (08:31)
[2017-05-19] MEDS: TAMSULOSIN 0.4 MG CAP.ER.24H PO SCH (08:31)
[2017-05-19] MEDS: ATORVASTATIN 40 MG TAB PO SCH (08:31)
[2017-05-19] MEDS: METOPROLOL TARTRATE 12.5 MG TAB PO SCH ×2 (08:31→21:12)
[2017-05-19] MEDS: IPRATROPIUM-ALBUTEROL 3 ML NEB INHALATION SCH ×4 (09:11→19:13)
--- NOTE | 2017-05-19 09:30 | P.PN ---
Subjective Progress Note Date: 05/19/17 Principal diagnosis: Status post four-vessel bypass grafting, atrial fibrillation Progress note dated 05/19/2017 This is a 71-year-old male postop day #5, status post four-vessel bypass grafting. The patient still has some issues including a chest x-ray which shows a mild fluid overload small pleural effusions and still has a history of atrial fibrillation. Patient was restarted on amiodarone last night because of atrial fibrillation with RVR. The patient's currently on amiodarone and 0.5 mg/ m. He is also getting saline IV at 20 mL an hour and O2 2 L. The patient is a very harsh wet congested, cough. His cough reflex is good though he is able cough up secretions. He is doing about 1250 and is on his incentive spirometer. I encouraged him to deep breathe cough and clear secretions. Labs x-rays a medications are all reviewed. Objective - Vital Signs Vital signs: Vital Signs Temp 97.9 F 05/19/17 04:00 Pulse 83 05/19/17 09:10 Resp 20 05/19/17 04:00 BP 90/61 05/19/17 04:00 Pulse Ox 92 L 05/19/17 04:00 Intake & Output 05/18/17 05/19/17 05/19/17 18:59 06:59 18:59 Intake Total 799.9 200.4 33.4 Output Total 975 1000 200 Balance -175.1 -799.6 -166.6 Weight 119 kg Intake: IV 199.9 200.4 33.4 Amiodarone 450 mg In 199.9 200.4 33.4 Dextrose 5% in Water 250 ml @ 1 MG/MIN 34.53 mls/ hr IV .Q7H31M [facility] Rx#: [id number] Oral 500 Tube Feeding 100 Output: Urine 975 1000 200 Other: Voiding Method Urinal Urinal ABP, PAP, CO, CI - Last Documented Arterial Blood Pressure 119/53 Pulmonary Artery Pressure 45/22 Cardiac Output 5.1 Cardiac Index 2.3 - Exam No acute distress, oriented 3. Nasal O2 in place. HEENT examination is grossly unremarkable. Mucous membranes are moist. No oral lesions. Neck supple. Full range of motion. No adenopathy thyromegaly or neck vein distention. Cardiovascular examination reveals irregular rhythm and rate. S1-S2 normal. No S3 or S4. No discernible murmur noted. Lungs reveal clear breath sounds. Her sounds are equal bilaterally. No adventitious lung sounds including wheezes rhonchi or crackles. Abdomen soft bowel sounds are heard. No masses or tenderness. Extremities are intact. No cyanosis clubbing or edema. Skin is without rash or lesion. Neurologic examination is brief but nonfocal. - Labs CBC & Chem 7: 05/19/17 03:46 05/19/17 03:46 Labs: Abnormal Lab Results - Last 24 Hours (Table) 05/18/17 05/18/17 05/18/17 Range/Units 09:34 12:18 16:55 RBC 3.46 L (4.30-5.90) m/uL Hgb 10.8 L (13.0-17.5) gm/dL Hct 34.1 L (39.0-53.0) % Glucose (74-99) mg/dL POC Glucose (mg/dL) 125 H 127 H (75-99) mg/dL Calcium (8.4-10.2) mg/dL Total Protein (6.3-8.2) g/dL Albumin (3.5-5.0) g/dL 05/18/17 05/19/17 05/19/17 Range/Units 19:58 02:30 03:46 RBC 3.32 L (4.30-5.90) m/uL Hgb 10.1 L (13.0-17.5) gm/dL Hct 32.0 L (39.0-53.0) % Glucose (74-99) mg/dL POC Glucose (mg/dL) 118 H 126 H (75-99) mg/dL Calcium (8.4-10.2) mg/dL Total Protein (6.3-8.2) g/dL Albumin (3.5-5.0) g/dL 05/19/17 05/19/17 Range/Units 03:46 07:29 RBC (4.30-5.90) m/uL Hgb (13.0-17.5) gm/dL Hct (39.0-53.0) % Glucose 104 H (74-99) mg/dL POC Glucose (mg/dL) 105 H (75-99) mg/dL Calcium 8.2 L (8.4-10.2) mg/dL Total Protein 5.0 L (6.3-8.2) g/dL Albumin 2.9 L (3.5-5.0) g/dL Assessment and Plan Assessment: Assessment Status post postoperative respiratory failure, resolved Postop day #5, status post four-vessel bypass grafting Atrial fibrillation/RVR Postoperative atelectasis and mild fluid overload History of ischemic cardiomyopathy with severely. LV function Recurrent atrial fibrillation History of hypertension Plan: Plan dated 05/19/2017 The patient seemed be doing reasonably well. Unfortunately, he's back on amiodarone. The chest x-rays reviewed. I am concerned about his cough which is wet congested. We'll continue to follow that closely. He's not doing as well on his incentive spirometer as I would like. In addition, I encourage deep breathing coughing and clearing of secretions. He remains on O2 at 2 L nasal cannula and is back on amiodarone 0.5 mg/m. Continue to follow. Prognosis is guarded. Critical care time 31 minutes Time with Patient: Greater than 30
[2017-05-19] MEDS ORDERED: FUROSEMIDE 10 MG/ML 2 ML VIAL IV ONE (10:31)
--- NOTE | 2017-05-19 10:34 | P.PN ---
Subjective Progress Note Date: 05/19/17 Principal diagnosis: Severe triple vessel coronary artery disease. Ischemic cardiomyopathy with impaired LV function with an ejection fraction of 25-30%. Previous medical history of hypertension, hyperlipidemia, osteoarthritis, remote history of pneumonia, remote history of tobacco abuse quit smoking 20 years ago, history of vein stripping to his left leg in 2012, family history of coronary artery disease. Obesity. POD #5 off-pump coronary artery bypass graft 4 with the left internal mammary artery to the left anterior descending coronary artery, a sequential right radial artery graft to first and second obtuse marginal coronary arteries, a left radial artery graft to right coronary artery with bilateral endovascular radial artery harvest and intraoperative epi-aortic ultrasound and a transesophageal echocardiogram by anesthesia. Postoperative paroxysmal atrial fibrillation, an expected outcome of surgery. Patient is currently sitting up to the bedside chair. He is in no acute distress. He is tolerating his breakfast. He denies any complaints of pain at this time. Oxygen saturation are 95% on room air. He is achieving 1850 mL- 2000 mL on his incentive spirometry. He denies any further complaints of urinary retention or trouble getting a stream of urine started. He is complaining of constipation, and reports he has not had a bowel movement since surgery. Objective - Vital Signs Vital signs: Vital Signs Temp 97.9 F 05/19/17 04:00 Pulse 72 05/19/17 04:00 Resp 20 05/19/17 04:00 BP 90/61 05/19/17 04:00 Pulse Ox 92 L 05/19/17 04:00 Intake & Output 05/18/17 05/19/17 05/19/17 18:59 06:59 18:59 Intake Total 799.9 200.4 16.7 Output Total 975 1000 Balance -175.1 -799.6 16.7 Weight 119 kg Intake: IV 199.9 200.4 16.7 Amiodarone 450 mg In 199.9 200.4 16.7 Dextrose 5% in Water 250 ml @ 1 MG/MIN 34.53 mls/ hr IV .Q7H31M [facility] Rx#: [id number] Oral 500 Tube Feeding 100 Output: Urine 975 1000 Other: Voiding Method Urinal Urinal ABP, PAP, CO, CI - Last Documented Arterial Blood Pressure 119/53 Pulmonary Artery Pressure 45/22 Cardiac Output 5.1 Cardiac Index 2.3 - Constitutional General appearance: Present: cooperative, no acute distress, obese - EENT ENT: Present: hearing grossly normal - Neck Details: Neck is supple, no lymphadenopathy or JVD. - Respiratory Details: Lung sounds are essentially clear throughout, diminished to his bilateral bases. Respirations are symmetrical and nonlabored. Oxygen saturation are 95% on room air. His achieving 1850 mL to 2000 the liters on his incentive spirometry. - Cardiovascular Details: Regular rhythm and rate. S1 and S2 present, negative for S3, gallop or murmur. Sternum is stable. Bedside telemetry showing normal sinus rhythm heart rate 82. Heart hugger is in place and he is demonstrating appropriate use. Atrial and ventricular epicardial pacemaker wires are in place and grounded. Knee- high SUSIE hose and sequential compression devices in place to his bilateral lower extremities. Trace edema to his bilateral lower extremity Frankie. Ulnar pulses palpable bilaterally. - Gastrointestinal Gastrointestinal Comment(s): Abdomen is soft, nontender and nondistended. Hypoactive bowel sounds all 4 abdominal quadrants. He is tolerating oral intake. Passing flatus. No bowel movement since surgery. - Genitourinary Genitourinary Comment(s): Urine output adequate. Clear yellow urine. 700 mL output in the last 8 hours. - Integumentary Integumentary Comment(s): Midline sternal incision clean dry and well approximated. No drainage or redness present. Dermabond dressing clean and dry. Bilateral arm radial harvest sites clean and dry and well approximated. Dermabond dressing clean and dry. No drainage or redness present. Skin is warm, dry and siddiqui. - Neurologic Neurologic: Present: CNII-XII intact - Musculoskeletal Musculoskeletal: Present: gait normal, strength equal bilaterally - Psychiatric Psychiatric: Present: A&O x's 3, appropriate affect, intact judgment & insight - Allied health notes Allied health notes reviewed: nursing - Labs CBC & Chem 7: 05/19/17 03:46 05/19/17 03:46 Labs: Abnormal Lab Results - Last 24 Hours (Table) 05/18/17 05/18/17 05/18/17 Range/Units 09:34 12:18 16:55 RBC 3.46 L (4.30-5.90) m/uL Hgb 10.8 L (13.0-17.5) gm/dL Hct 34.1 L (39.0-53.0) % Glucose (74-99) mg/dL POC Glucose (mg/dL) 125 H 127 H (75-99) mg/dL Calcium (8.4-10.2) mg/dL Total Protein (6.3-8.2) g/dL Albumin (3.5-5.0) g/dL 05/18/17 05/19/17 05/19/17 Range/Units 19:58 02:30 03:46 RBC 3.32 L (4.30-5.90) m/uL Hgb 10.1 L (13.0-17.5) gm/dL Hct 32.0 L (39.0-53.0) % Glucose (74-99) mg/dL POC Glucose (mg/dL) 118 H 126 H (75-99) mg/dL Calcium (8.4-10.2) mg/dL Total Protein (6.3-8.2) g/dL Albumin (3.5-5.0) g/dL 05/19/17 05/19/17 Range/Units 03:46 07:29 RBC (4.30-5.90) m/uL Hgb (13.0-17.5) gm/dL Hct (39.0-53.0) % Glucose 104 H (74-99) mg/dL POC Glucose (mg/dL) 105 H (75-99) mg/dL Calcium 8.2 L (8.4-10.2) mg/dL Total Protein 5.0 L (6.3-8.2) g/dL Albumin 2.9 L (3.5-5.0) g/dL - Imaging and Cardiology Chest x-ray: report reviewed, image reviewed Assessment and Plan (1) Postoperative urinary retention Current Visit: Yes Status: Acute Code(s): N99.89 - OTH POSTPROCEDURAL COMPLICATIONS AND DISORDERS OF SYS; R33.8 - OTHER RETENTION OF URINE SNOMED Code(s): 921149234 (2) Coronary artery disease Current Visit: Yes Status: Chronic Code(s): I25.10 - ATHSCL HEART DISEASE OF [place] CORONARY ARTERY W/O ANG PCTRS SNOMED Code(s): 21262155 (3) Family history of heart disease Current Visit: Yes Status: Chronic Code(s): Z82.49 - FAMILY HX OF ISCHEM HEART DIS AND OTH DIS OF THE CIRC SYS SNOMED Code(s): 085769568 (4) Hypertension Current Visit: Yes Status: Chronic Code(s): I10 - ESSENTIAL (PRIMARY) HYPERTENSION SNOMED Code(s): 13260392 (5) Obesity (BMI 30-39.9) Current Visit: Yes Status: Chronic Code(s): E66.9 - OBESITY, UNSPECIFIED SNOMED Code(s): 981583328 (6) Osteoarthritis Current Visit: Yes Status: Chronic Code(s): M19.90 - UNSPECIFIED OSTEOARTHRITIS, UNSPECIFIED SITE SNOMED Code(s): 798795462 (7) Ischemic cardiomyopathy Current Visit: Yes Status: Acute Code(s): I25.5 - ISCHEMIC CARDIOMYOPATHY SNOMED Code(s): 786383332 (8) Hyperlipidemia Current Visit: Yes Status: Acute Code(s): E78.5 - HYPERLIPIDEMIA, UNSPECIFIED SNOMED Code(s): 22384230 (9) Tobacco dependence in remission Current Visit: Yes Status: Acute Code(s): F17.201 - NICOTINE DEPENDENCE, UNSPECIFIED, IN REMISSION SNOMED Code(s): 594516965 (10) History of vein stripping Current Visit: Yes Status: Acute Code(s): Z98.890 - OTHER SPECIFIED POSTPROCEDURAL STATES SNOMED Code(s): 443044916 (11) Postoperative atrial fibrillation Current Visit: Yes Status: Acute Code(s): I97.89 - OTH POSTPROC COMP AND DISORDERS OF THE CIRC SYS, NEC; I48.91 - UNSPECIFIED ATRIAL FIBRILLATION SNOMED Code(s): 96801444 Plan: 1. Continue aspirin, statin, Plavix, heparin subcu, beta rosita. Will increase beta rosita therapy as tolerated. 2. Continue Norvasc for radial artery spasm prevention. Do not discontinue. 3. Wean O2 as tolerated. Encourage incentive spirometry use 10 times every hour while awake. 4. Increase activity as tolerated, up to chair, ambulate as able. PT/OT/ cardiac rehab following. 5. GI DVT prophylaxis. 6. Will monitor daily labs and x-rays. 7. Blood sugar control per primary care service. 8. Continue amiodarone drip until current bag is finished, continue amiodarone 400 mg by mouth twice a day 1 week, then amiodarone 200 mg by mouth twice a day 1 week and then 200 mg by mouth daily thereafter. 9. We will continue the patient on Flomax 0.4 mg by mouth daily for urine retention. 10. Lasix 20 mg 1 today. 11. We will remove his epicardial pacemaker wires today. Bed rest for 1 hour post pacemaker wire removal. 12. Dulcolax suppository today 1 for complaints of constipation. 13. More recommendations as patient progresses. Transferred to [address] [place] [address] when bed available. Discharge planning in place, anticipate discharge home within the next 24 hours. Atrial and ventricular epicardial pacemaker wires removed without incident at 10 :30 AM today. He will be on bed rest for 1 hour post pacemaker wire removal. Time with Patient: Greater than 30
[2017-05-19] MEDS: HEPARIN SODIUM,PORCINE 5,000 UNIT/ML 1 ML VIAL SQ SCH ×3 (10:35→23:07)
--- NOTE | 2017-05-19 11:40 | P.PN ---
Subjective Patient resting in bed without complaint patient states he's been up ambulating without difficulty Objective - Vital Signs Vital signs: Vital Signs Temp 97.9 F 05/19/17 04:00 Pulse 60 05/19/17 11:00 Resp 14 05/19/17 11:00 BP 95/60 05/19/17 11:00 Pulse Ox 92 L 05/19/17 11:00 Intake & Output 05/18/17 05/19/17 05/19/17 18:59 06:59 18:59 Intake Total 799.9 200.4 50.1 Output Total 975 1000 200 Balance -175.1 -799.6 -149.9 Weight 119 kg Intake: IV 199.9 200.4 50.1 Amiodarone 450 mg In 199.9 200.4 50.1 Dextrose 5% in Water 250 ml @ 1 MG/MIN 34.53 mls/ hr IV .Q7H31M [facility] Rx#: [id number] Oral 500 Tube Feeding 100 Output: Urine 975 1000 200 Other: Voiding Method Urinal Urinal Urinal # Voids 0 ABP, PAP, CO, CI - Last Documented Arterial Blood Pressure 119/53 Pulmonary Artery Pressure 45/22 Cardiac Output 5.1 Cardiac Index 2.3 - Constitutional General appearance: Present: mild distress - EENT Eyes: Present: PERRLA Ears: bilateral: normal - Neck Neck: Present: normal ROM - Respiratory Respiratory: bilateral: CTA - Cardiovascular Rhythm: regular - Gastrointestinal General gastrointestinal: Present: distended - Integumentary Integumentary: Present: normal - Neurologic Neurologic: Present: CNII-XII intact - Musculoskeletal Musculoskeletal: Present: generalized weakness - Psychiatric Psychiatric: Present: A&O x's 3, appropriate affect, intact judgment & insight - Labs CBC & Chem 7: 05/19/17 03:46 05/19/17 03:46 Labs: Abnormal Lab Results - Last 24 Hours (Table) 05/18/17 05/18/17 05/18/17 Range/Units 12:18 16:55 19:58 RBC 3.46 L (4.30-5.90) m/uL Hgb 10.8 L (13.0-17.5) gm/dL Hct 34.1 L (39.0-53.0) % Glucose (74-99) mg/dL POC Glucose (mg/dL) 127 H 118 H (75-99) mg/dL Calcium (8.4-10.2) mg/dL Total Protein (6.3-8.2) g/dL Albumin (3.5-5.0) g/dL 05/19/17 05/19/17 05/19/17 Range/Units 02:30 03:46 03:46 RBC 3.32 L (4.30-5.90) m/uL Hgb 10.1 L (13.0-17.5) gm/dL Hct 32.0 L (39.0-53.0) % Glucose 104 H (74-99) mg/dL POC Glucose (mg/dL) 126 H (75-99) mg/dL Calcium 8.2 L (8.4-10.2) mg/dL Total Protein 5.0 L (6.3-8.2) g/dL Albumin 2.9 L (3.5-5.0) g/dL 05/19/17 Range/Units 07:29 RBC (4.30-5.90) m/uL Hgb (13.0-17.5) gm/dL Hct (39.0-53.0) % Glucose (74-99) mg/dL POC Glucose (mg/dL) 105 H (75-99) mg/dL Calcium (8.4-10.2) mg/dL Total Protein (6.3-8.2) g/dL Albumin (3.5-5.0) g/dL - Imaging and Cardiology Chest x-ray: report reviewed Assessment and Plan Plan: Assessment Post CABG 4 Postoperative atelectasis post mechanical ventilation History of ischemic cardiomyopathy with severely impaired LV function ejection fraction 30% History of degenerative joint disease Postoperative urinary retention Postoperative atrial fibrillation Coronary artery disease History of hypertension Plan We'll continue to monitor patient
[2017-05-19 11:59] LABS: Glucose,Whole Blood 100 mg/dL (75-99)
[2017-05-19] MEDS ORDERED: amLODIPine 5 MG TAB PO SCH (12:00)
[2017-05-19] MEDS: amLODIPine 5 MG TAB PO SCH (15:43)
[2017-05-19 16:36] LABS: Glucose,Whole Blood 103 mg/dL (75-99)
[2017-05-19] MEDS: amLODIPine 2.5 MG TAB PO SCH (17:41)
--- NOTE | 2017-05-19 20:34 | PN ---
PROGRESS NOTE This gentleman is status post bypass surgery, recovering nicely. Yesterday he had an episode of atrial fibrillation, is on amiodarone. Vitals are stable. S1, S2 heard normally. Short systolic murmur noted. Lungs reveal fair air entry. Abdomen is soft. Lower extremities reveal diminished pulses. Rest of physical exam unchanged. Continue incentive spirometry, pulmonary toilet and amiodarone. MMODL / IJN: [id number] /
[2017-05-19 21:08] LABS: Glucose,Whole Blood 102 mg/dL (75-99)
[2017-05-19] MEDS: SENNOSIDES-DOCUSATE SODIUM 1 EACH TAB PO SCH (21:12)
[2017-05-20 02:01] LABS: Glucose,Whole Blood 112 mg/dL (75-99)
[2017-05-20 03:56] VITALS: RESP 16
[2017-05-20] MEDS: INSULIN ASPART 100 UNIT/ML 1 ML 10 ML VIAL SQ SCH ×2 (06:25→12:14)
[2017-05-20] MEDS: PANTOPRAZOLE 40 MG TABLET PO SCH (06:27)
[2017-05-20 06:33] LABS: Glucose,Whole Blood 101 mg/dL (75-99)
[2017-05-20 06:45] LABS: Basophils # (A) 0.1 k/uL (0-0.2); Basophils % (A) 1 %; Eosinophils # (A) 0.3 k/uL (0-0.7); Eosinophils % (A) 5 %; HCT 32.1 % (39.0-53.0); HGB 10.1 gm/dL (13.0-17.5); Lymphocytes # (A) 1.1 k/uL (1.0-4.8); Lymphocytes % (A) 19 %; MCHC 31.6 g/dL (31.0-37.0); MCV 94.7 fL (80.0-100.0); Mean Platelet Volume 6.8; Monocytes # (A) 0.6 k/uL (0-1.0); Monocytes % (A) 10 %; Neutrophils # (A) 3.7 k/uL (1.3-7.7); Neutrophils % (A) 63 %; Platelet Count 202 k/uL (150-450); RBC 3.39 m/uL (4.30-5.90); RDW 13.2 % (11.5-15.5); WBC 5.9 k/uL (3.8-10.6)
[2017-05-20 07:00] LABS: ALT 43 U/L (21-72); AST 36 U/L (17-59); Albumin 2.9 g/dL (3.5-5.0); Alkaline Phosphatase 55 U/L (38-126); Anion Gap 9 mmol/L; Blood Urea Nitrogen 17 mg/dL (9-20); Calcium 8.5 mg/dL (8.4-10.2); Carbon Dioxide 28 mmol/L (22-30); Chloride 102 mmol/L (98-107); Glucose 95 mg/dL (74-99); Potassium 4.2 mmol/L (3.5-5.1); Sodium 139 mmol/L (137-145); Total Bilirubin 0.5 mg/dL (0.2-1.3); Total Protein 5.1 g/dL (6.3-8.2)
[2017-05-20] MEDS: HYDROcodone/APAP 5-325MG 1 EACH TAB PO PRN ×2 (07:21→11:19)
[2017-05-20] MEDS: IPRATROPIUM-ALBUTEROL 3 ML NEB INHALATION SCH ×3 (08:24→15:06)
[2017-05-20] MEDS: HEPARIN SODIUM,PORCINE 5,000 UNIT/ML 1 ML VIAL SQ SCH (08:53)
[2017-05-20] MEDS: AMIODARONE 200 MG TAB PO SCH (08:54)
[2017-05-20] MEDS: TAMSULOSIN 0.4 MG CAP.ER.24H PO SCH (08:54)
[2017-05-20] MEDS: ASPIRIN 325 MG TAB PO SCH (08:54)
[2017-05-20] MEDS: METOPROLOL TARTRATE 12.5 MG TAB PO SCH (08:55)
[2017-05-20] MEDS: CLOPIDOGREL 75 MG TAB PO SCH (08:55)
[2017-05-20] MEDS: ATORVASTATIN 40 MG TAB PO SCH (08:55)
--- NOTE | 2017-05-20 10:14 | P.PN ---
Subjective Patient has been transferred from the intensive care unit to the stepdown unit. The patient sitting in chair states she's been able to ambulate without difficulty. Hopefully discharge soon. Discussed diet and activity Objective - Vital Signs Vital signs: Vital Signs Temp 97.3 F L 05/20/17 08:00 Pulse 84 05/20/17 08:27 Resp 16 05/20/17 08:00 BP 123/73 05/20/17 08:00 Pulse Ox 97 05/20/17 08:00 Intake & Output 05/19/17 05/20/17 05/20/17 18:59 06:59 18:59 Intake Total 650.1 360 Output Total 1150 200 Balance -499.9 -200 360 Weight 111.2 kg Intake: IV 50.1 Amiodarone 450 mg In 50.1 Dextrose 5% in Water 250 ml @ 1 MG/MIN 34.53 mls/ hr IV .Q7H31M [facility] Rx#: [id number] Oral 600 360 Output: Urine 1150 200 Other: Voiding Method Urinal Urinal # Voids 1 1 # Bowel Movements 1 ABP, PAP, CO, CI - Last Documented Arterial Blood Pressure 119/53 Pulmonary Artery Pressure 45/22 Cardiac Output 5.1 Cardiac Index 2.3 - Constitutional General appearance: Present: obese - EENT Eyes: Present: PERRLA Ears: bilateral: normal - Neck Neck: Present: normal ROM - Respiratory Respiratory: bilateral: CTA - Cardiovascular Rhythm: regular - Gastrointestinal General gastrointestinal: Present: soft - Integumentary Integumentary: Present: normal - Neurologic Neurologic: Present: CNII-XII intact - Musculoskeletal Musculoskeletal: Present: gait normal - Psychiatric Psychiatric: Present: A&O x's 3, appropriate affect, intact judgment & insight - Labs CBC & Chem 7: 05/20/17 06:18 05/20/17 06:18 Labs: Abnormal Lab Results - Last 24 Hours (Table) 05/19/17 05/19/17 05/19/17 Range/Units 11:57 16:33 21:06 RBC (4.30-5.90) m/uL Hgb (13.0-17.5) gm/dL Hct (39.0-53.0) % POC Glucose (mg/dL) 100 H 103 H 102 H (75-99) mg/dL Total Protein (6.3-8.2) g/dL Albumin (3.5-5.0) g/dL 05/20/17 05/20/17 05/20/17 Range/Units 01:59 06:18 06:18 RBC 3.39 L (4.30-5.90) m/uL Hgb 10.1 L (13.0-17.5) gm/dL Hct 32.1 L (39.0-53.0) % POC Glucose (mg/dL) 112 H (75-99) mg/dL Total Protein 5.1 L (6.3-8.2) g/dL Albumin 2.9 L (3.5-5.0) g/dL 05/20/17 Range/Units 06:23 RBC (4.30-5.90) m/uL Hgb (13.0-17.5) gm/dL Hct (39.0-53.0) % POC Glucose (mg/dL) 101 H (75-99) mg/dL Total Protein (6.3-8.2) g/dL Albumin (3.5-5.0) g/dL Assessment and Plan Plan: Assessment Coronary disease with post status CABG 4 Postoperative atelectasis History of ischemic cardiomyopathy severely impaired LV function ejection fraction 30% history of hypertension History of degenerative joint disease Postoperative atrial fibrillation Postoperative urinary retention History of hypertension Plan We'll continue to monitor patient hopeful discharge soon
--- NOTE | 2017-05-20 10:17 | XR ---
EXAMINATION TYPE: XR chest 1V portable DATE OF EXAM: 05/20/2017 COMPARISON: 05/19/2016 HISTORY: Post CABG. Follow-up exam. TECHNIQUE: Single frontal view of the chest is obtained. FINDINGS: There is improved aeration of the lung bases although there are persistent trace pleural e ffusions with blunting of the costophrenic angles. Cardiac silhouette is enlarged with post CABG valladares ges. Osseous structures appear intact. Remainder the lungs are clear. Moderate degenerative changes o f the glenohumeral joints are seen. IMPRESSION: Improved aeration of the lung bases with persistent trace pleural effusions and post CAB G changes.
[2017-05-20] MEDS: amLODIPine 2.5 MG TAB PO SCH (11:20)
[2017-05-20] MEDS ORDERED: FUROSEMIDE 10 MG/ML 2 ML VIAL IV ONE (11:26)
[2017-05-20 12:02] LABS: Glucose,Whole Blood 111 mg/dL (75-99)
--- NOTE | 2017-05-20 12:49 | P.PN ---
Subjective Progress Note Date: 05/20/17 Principal diagnosis: Severe triple vessel coronary artery disease. Ischemic cardiomyopathy with impaired LV function with an ejection fraction of 25-30%. Previous medical history of hypertension, hyperlipidemia, osteoarthritis, remote history of pneumonia, remote history of tobacco abuse quit smoking 20 years ago, history of vein stripping to his left leg in 2012, family history of coronary artery disease. Obesity. POD #6 off-pump coronary artery bypass graft 4 with the left internal mammary artery to the left anterior descending coronary artery, a sequential right radial artery graft to first and second obtuse marginal coronary arteries, a left radial artery graft to right coronary artery with bilateral endovascular radial artery harvest and intraoperative epi-aortic ultrasound and a transesophageal echocardiogram by anesthesia. Postoperative paroxysmal atrial fibrillation, an expected outcome of surgery. Patient is currently sitting up to the bedside chair. He is in no acute distress. He is tolerating his breakfast. He currently rates his pain 2-3 out of 10 on the pain scale, and states his pain has been well controlled. Oxygen saturation are 93% on room air. He is achieving 1850 mL to 2000 mL on his incentive spirometry. He denies any further complaints of urinary retention or trouble getting a stream of urine started, continue Flomax as scheduled. He reports his bowel moved twice yesterday. Objective - Vital Signs Vital signs: Vital Signs Temp 97.2 F L 05/20/17 03:53 Pulse 84 05/20/17 08:27 Resp 16 05/20/17 03:53 BP 104/58 05/20/17 03:53 Pulse Ox 93 L 05/20/17 03:53 Intake & Output 05/19/17 05/20/17 05/20/17 18:59 06:59 18:59 Intake Total 650.1 360 Output Total 1150 200 Balance -499.9 -200 360 Weight 111.2 kg Intake: IV 50.1 Amiodarone 450 mg In 50.1 Dextrose 5% in Water 250 ml @ 1 MG/MIN 34.53 mls/ hr IV .Q7H31M [facility] Rx#: [id number] Oral 600 360 Output: Urine 1150 200 Other: Voiding Method Urinal Urinal # Voids 1 1 # Bowel Movements 1 ABP, PAP, CO, CI - Last Documented Arterial Blood Pressure 119/53 Pulmonary Artery Pressure 45/22 Cardiac Output 5.1 Cardiac Index 2.3 - Constitutional General appearance: Present: cooperative, no acute distress, obese - EENT ENT: Present: hearing grossly normal - Neck Details: Neck is supple, no JVD, no lymphadenopathy. - Respiratory Details: Lung sounds are essentially clear throughout, few scattered crackles to his bilateral bases. Respirations are symmetrical and nonlabored. Oxygen saturation are 93% on room air. He is achieving 1850 mL to 2000 mL on his incentive spirometry. - Gastrointestinal Gastrointestinal Comment(s): Regular rhythm and rate. S1 and S2 present, negative for S3, gallop or murmur. Sternum is stable. Remote telemetry showing normal sinus rhythm heart rate 79. Heart hugger is in place and he is demonstrating appropriate use. Knee- high SSUIE hose and sequential compression devices in place was bilateral lower extremities. Trace edema to his bilateral lower extremities and to his left arm. - Genitourinary Genitourinary Comment(s): Adequate urine output. Clear feliz urine. - Integumentary Integumentary Comment(s): Midline sternal incision clean dry and well approximated. No drainage or redness present. Dermabond dressing clean and dry. Bilateral arm radial harvest sites clean and dry and well approximated. Dermabond dressing clean and dry. No drainage or redness present. Skin is warm, dry and siddiqui. - Neurologic Neurologic: Present: CNII-XII intact - Musculoskeletal Musculoskeletal: Present: gait normal, strength equal bilaterally - Psychiatric Psychiatric: Present: A&O x's 3, appropriate affect, intact judgment & insight - Allied health notes Allied health notes reviewed: nursing - Labs CBC & Chem 7: 05/20/17 06:18 05/20/17 06:18 Labs: Abnormal Lab Results - Last 24 Hours (Table) 05/19/17 05/19/17 05/19/17 Range/Units 11:57 16:33 21:06 RBC (4.30-5.90) m/uL Hgb (13.0-17.5) gm/dL Hct (39.0-53.0) % POC Glucose (mg/dL) 100 H 103 H 102 H (75-99) mg/dL Total Protein (6.3-8.2) g/dL Albumin (3.5-5.0) g/dL 05/20/17 05/20/17 05/20/17 Range/Units 01:59 06:18 06:18 RBC 3.39 L (4.30-5.90) m/uL Hgb 10.1 L (13.0-17.5) gm/dL Hct 32.1 L (39.0-53.0) % POC Glucose (mg/dL) 112 H (75-99) mg/dL Total Protein 5.1 L (6.3-8.2) g/dL Albumin 2.9 L (3.5-5.0) g/dL 05/20/17 Range/Units 06:23 RBC (4.30-5.90) m/uL Hgb (13.0-17.5) gm/dL Hct (39.0-53.0) % POC Glucose (mg/dL) 101 H (75-99) mg/dL Total Protein (6.3-8.2) g/dL Albumin (3.5-5.0) g/dL - Imaging and Cardiology Chest x-ray: report reviewed, image reviewed Assessment and Plan (1) Postoperative urinary retention Current Visit: Yes Status: Acute Code(s): N99.89 - OTH POSTPROCEDURAL COMPLICATIONS AND DISORDERS OF SYS; R33.8 - OTHER RETENTION OF URINE SNOMED Code(s): 921250859 (2) Coronary artery disease Current Visit: Yes Status: Chronic Code(s): I25.10 - ATHSCL HEART DISEASE OF [place] CORONARY ARTERY W/O ANG PCTRS SNOMED Code(s): 07873456 (3) Family history of heart disease Current Visit: Yes Status: Chronic Code(s): Z82.49 - FAMILY HX OF ISCHEM HEART DIS AND OTH DIS OF THE CIRC SYS SNOMED Code(s): 911848821 (4) Hypertension Current Visit: Yes Status: Chronic Code(s): I10 - ESSENTIAL (PRIMARY) HYPERTENSION SNOMED Code(s): 95812970 (5) Obesity (BMI 30-39.9) Current Visit: Yes Status: Chronic Code(s): E66.9 - OBESITY, UNSPECIFIED SNOMED Code(s): 947777534 (6) Osteoarthritis Current Visit: Yes Status: Chronic Code(s): M19.90 - UNSPECIFIED OSTEOARTHRITIS, UNSPECIFIED SITE SNOMED Code(s): 073040094 (7) Ischemic cardiomyopathy Current Visit: Yes Status: Acute Code(s): I25.5 - ISCHEMIC CARDIOMYOPATHY SNOMED Code(s): 466385352 (8) Hyperlipidemia Current Visit: Yes Status: Acute Code(s): E78.5 - HYPERLIPIDEMIA, UNSPECIFIED SNOMED Code(s): 54580931 (9) Tobacco dependence in remission Current Visit: Yes Status: Acute Code(s): F17.201 - NICOTINE DEPENDENCE, UNSPECIFIED, IN REMISSION SNOMED Code(s): 805844704 (10) History of vein stripping Current Visit: Yes Status: Acute Code(s): Z98.890 - OTHER SPECIFIED POSTPROCEDURAL STATES SNOMED Code(s): 138916188 (11) Postoperative atrial fibrillation Current Visit: Yes Status: Acute Code(s): I97.89 - OTH POSTPROC COMP AND DISORDERS OF THE CIRC SYS, NEC; I48.91 - UNSPECIFIED ATRIAL FIBRILLATION SNOMED Code(s): 79927251 Plan: 1. Continue aspirin, statin, Plavix, heparin subcu, and beta rosita. Will increase beta rosita therapy as tolerated. 2. Continue Norvasc for radial artery spasm prevention. Do not discontinue. Norvasc was decreased to 2.5 mg by mouth daily at noon yesterday 05/19/2017. 3. Wean O2 as tolerated. Encourage incentive spirometry use 10 times every hour while awake. 4. Increase activity as tolerated, up to chair, ambulate as able. PT/OT/ cardiac rehab following. 5. GI DVT prophylaxis. 6. Lasix 20 mg IV 1 today. The patient will be discharged home on Lasix 20 mg by mouth daily 7 days. 7. Blood sugar control per primary care service. 8. Continue amiodarone 400 mg by mouth twice a day 1 week, then amiodarone 200 mg by mouth twice a day 1 week and then 200 mg by mouth daily thereafter. 9. We will continue the patient on Flomax 0.4 mg by mouth daily for urine retention. 10. More recommendations as patient progresses. Discharge planning in place, anticipate discharge home within the next 24 hours. He will be followed by [facility]. Time with Patient: Greater than 30
--- NOTE | 2017-05-20 12:51 | P.PN ---
Subjective Progress Note Date: 05/20/17 Principal diagnosis: Severe triple-vessel coronary artery disease, status post coronary artery bypass grafting 4 with a FALK to the LAD, sequential right radial artery to the first and second OM, left radial artery to RCA This is a 71-year-old white male presented initially with anginal symptoms, cardiac catheterization done in the last 2 weeks showed severe three-vessel disease, including occlusion of the left anterior descending coronary artery, occlusion of the distal circumflex coronary artery. Stress testing was suggestive of reversible ischemia, and the patient was advised to undergo CABG which was done today electively. Patient underwent FALK to LAD, sequential right radial artery graft to the first and second obtuse marginal, left radial artery graft to the right coronary artery and bilateral endovascular radial artery harvest and FRANCIS by anesthesia. Postoperatively, patient is on mechanical ventilation, and this consult was initiated. His last cardiac catheterization was done on 05/01/2017. His previous cardiac workup showed LV dysfunction with ejection fraction of 25-30%. Patient was reevaluated today on 05/15/2017, doing well, relatively asymptomatic , extubated last night uneventfully. No cough no wheezing no shortness of breath, chest x-ray is showing mostly postoperative changes otherwise unremarkable. Labs were all reviewed. Reevaluated today on 05/16/2017, patient is asymptomatic, remains on nasal cannula, doing well, sitting in the chair, relatively asymptomatic. Labs and chest x-ray were reviewed. The chest x-ray is showing postoperative changes and atelectasis as expected. Reevaluated today on 05/17/2017, patient is doing quite well, remains on 3 L nasal cannula, able to get out of bed, ambulating in the hallway, chest x-ray shows minimal atelectasis at the bases, and postoperative changes. Patient again is relatively asymptomatic, no cough no wheezing no shortness of breath. No nausea no vomiting no abdominal pain. His labs and his chest x-ray were all reviewed. Reevaluated today on 05/18/2017, patient finished is doing well relatively asymptomatic, had an episode of A. fib with RVR yesterday, presently in sinus rhythm. Patient was treated with amiodarone, he is off oxygen and presently on room air. Doing great with incentive spirometry and she being almost 2000 mL. Patient isn't ready ambulating, earlier today he had a of diaphoresis, but asymptomatic at the time of my evaluation. Progress note dated 05/19/2017 This is a 71-year-old male postop day #5, status post four-vessel bypass grafting. The patient still has some issues including a chest x-ray which shows a mild fluid overload small pleural effusions and still has a history of atrial fibrillation. Patient was restarted on amiodarone last night because of atrial fibrillation with RVR. The patient's currently on amiodarone and 0.5 mg/ m. He is also getting saline IV at 20 mL an hour and O2 2 L. The patient is a very harsh wet congested, cough. His cough reflex is good though he is able cough up secretions. He is doing about 1250 and is on his incentive spirometer. I encouraged him to deep breathe cough and clear secretions. Labs x-rays a medications are all reviewed. On 05/20/2017 patient seen in follow-up. Doing very well, denies any acute distress. He is on room air, with O2 sat 97%. He is afebrile, hemodynamically stable. He is in sinus rhythm with a controlled rate. Today's chest x-ray shows improved aeration of the lung bases with persistent trace pleural effusions. Patient has been ambulating in the hallway, he is compliant with his incentive spirometry, able to achieve 2250 on it today. His lung sounds are clear to auscultation, no rhonchi or wheezes noted. Today's lab work shows WBC of 5.9, hemoglobin is 10.1, electrolytes and renal profile are normal. No acute issues overnight, patient is progressing very well. Anticipate discharge home today. Objective - Vital Signs Vital signs: Vital Signs Temp 97.3 F L 05/20/17 08:00 Pulse 84 05/20/17 08:27 Resp 16 05/20/17 08:00 BP 123/73 05/20/17 08:00 Pulse Ox 97 05/20/17 08:00 Intake & Output 05/19/17 05/20/17 05/20/17 18:59 06:59 18:59 Intake Total 650.1 360 Output Total 1150 200 Balance -499.9 -200 360 Weight 111.2 kg Intake: IV 50.1 Amiodarone 450 mg In 50.1 Dextrose 5% in Water 250 ml @ 1 MG/MIN 34.53 mls/ hr IV .[id number] [facility] Rx#: [id number] Oral 600 360 Output: Urine 1150 200 Other: Voiding Method Urinal Urinal Urinal # Voids 1 1 # Bowel Movements 1 ABP, PAP, CO, CI - Last Documented Arterial Blood Pressure 119/53 Pulmonary Artery Pressure 45/22 Cardiac Output 5.1 Cardiac Index 2.3 - Exam GENERAL EXAM: Alert, pleasant, 71-year-old white male comfortable in no apparent distress. HEAD: Normocephalic/atraumatic. EYES: Normal reaction of pupils, equal size. Conjunctiva pink, sclera white. NOSE: Clear with pink turbinates. THROAT: No erythema or exudates. NECK: No masses, no JVD, no thyroid enlargement, no adenopathy. CHEST: No chest wall deformity. Symmetrical expansion. Midsternal incision is clean dry and intact well approximated, well-healed LUNGS: Equal air entry with no crackles, wheeze, rhonchi or dullness. CVS: Regular rate and rhythm, normal S1 and S2, no gallops, no murmurs, no rubs ABDOMEN: Soft, nontender. No hepatosplenomegaly, normal bowel sounds, no guarding or rigidity. EXTREMITIES: No clubbing, no edema, no cyanosis, 2+ pulses and upper and lower extremities. MUSCULOSKELETAL: Muscle strength and tone normal. SPINE: No scoliosis or deformity SKIN: No rashes CENTRAL NERVOUS SYSTEM: Alert and oriented -3. No focal deficits, tone is normal in all 4 extremities. PSYCHIATRIC: Alert and oriented -3. Appropriate affect. Intact judgment and insight. - Labs CBC & Chem 7: 05/20/17 06:18 05/20/17 06:18 Labs: Abnormal Lab Results - Last 24 Hours (Table) 05/19/17 05/19/17 05/20/17 Range/Units 16:33 21:06 01:59 RBC (4.30-5.90) m/uL Hgb (13.0-17.5) gm/dL Hct (39.0-53.0) % POC Glucose (mg/dL) 103 H 102 H 112 H (75-99) mg/dL Total Protein (6.3-8.2) g/dL Albumin (3.5-5.0) g/dL 02/27/18 02/27/18 02/27/18 Range/Units 06:18 06:18 06:23 RBC 3.39 L (4.30-5.90) m/uL Hgb 10.1 L (13.0-17.5) gm/dL Hct 32.1 L (39.0-53.0) % POC Glucose (mg/dL) 101 H (75-99) mg/dL Total Protein 5.1 L (6.3-8.2) g/dL Albumin 2.9 L (3.5-5.0) g/dL 05/20/17 Range/Units 12:01 RBC (4.30-5.90) m/uL Hgb (13.0-17.5) gm/dL Hct (39.0-53.0) % POC Glucose (mg/dL) 111 H (75-99) mg/dL Total Protein (6.3-8.2) g/dL Albumin (3.5-5.0) g/dL Assessment and Plan Plan: Assessment: 1 status post CABG 4, with FALK to LAD, sequential right radial artery graft to first and second obtuse marginal, left radial artery graft to right coronary artery, postoperative day #6 2 postoperative atelectasis as noted on the chest x-ray, expected finding postoperatively. 3 history of ischemic cardiomyopathy and severely impaired LV function. 4 history of hypertension History of degenerative joint disease. Recommendation: Patient is doing very well, denies any acute distress. His lung sounds are clear, he has been ambulating, and tolerating activity well. Chest x-ray shows improvement in the appearance of bibasilar aeration. Remains stable, remains in sinus rhythm with controlled rate. Vital signs are stable. From pulmonary standpoint he is stable for discharge home today. He will need follow-up with Dr. Andersen in the office in one week I performed a history & physical examination of the patient and discussed their management with my nurse practitioner, Dana Vigil. I reviewed the nurse practitioner's note and agree with the documented findings and plan of care. Lung sounds are positive for clear breath sounds. The findings and the impression was discussed with the patient. I attest to the documentation by the nurse practitioner. Time with Patient: Less than 30
[2017-05-20 12:56] VITALS: BP 133/75; PULSE 68; TEMP 97
--- NOTE | 2017-05-20 14:02 | P.DS ---
Providers Date of admission: 05/14/17 05:41 Expected date of discharge: 05/20/17 Attending physician: Edwin Lacey Consults: 05/14/17 14:18 Consult Physician Routine Consulting Provider: Carlos Manzanares Consult Reason/Comments: Medical Office Representative Consult: post cardiac surgery Do you want consulting provider notified?: Yes Consult Physician Routine Consulting Provider: Rolando House Consult Reason/Comments: Nail Setter Consult: post cardiac surgery Do you want consulting provider notified?: Yes 05/14/17 19:34 Consult Physician Routine Consulting Provider: Beto Mcknight Consult Reason/Comments: medical management Do you want consulting provider notified?: Yes, Notify in am Primary care physician: Beto Mcknight - Discharge Diagnosis(es) (1) Postoperative urinary retention Current Visit: Yes Status: Acute (2) Coronary artery disease Current Visit: Yes Status: Chronic (3) Family history of heart disease Current Visit: Yes Status: Chronic (4) Hypertension Current Visit: Yes Status: Chronic (5) Obesity (BMI 30-39.9) Current Visit: Yes Status: Chronic (6) Osteoarthritis Current Visit: Yes Status: Chronic (7) Ischemic cardiomyopathy Current Visit: Yes Status: Acute (8) Hyperlipidemia Current Visit: Yes Status: Acute (9) Tobacco dependence in remission Current Visit: Yes Status: Acute (10) History of vein stripping Current Visit: Yes Status: Acute (11) Postoperative atrial fibrillation Current Visit: Yes Status: Acute Hospital Course: FINAL DIAGNOSIS: 1. Severe triple-vessel coronary artery disease 2. Ischemic cardiomyopathy with a left ventricular function with an ejection fraction of 25-30% 3. Hypertension 4. Hyperlipidemia 5. Osteoarthritis 6. Remote history of pneumonia 7. Remote history of tobacco abuse quit smoking 20 years ago 8. History of vein stripping to his left leg in 2012 9. Family history of early onset coronary artery disease 10. Obesity 11. Postoperative paroxysmal atrial fibrillation, an expected outcome of surgery PRINCIPAL PROCEDURE: 1. Off-pump coronary artery bypass grafting 4 vessels with placement of his left internal mammary artery to the left anterior descending coronary artery, a sequential right radial artery graft to his first and second obtuse marginal coronary arteries, a left radial artery graft to the right coronary artery. 2. Bilateral endovascular radial artery harvest. 3. Intraoperative epi-aortic ultrasound. 4. Intraoperative transesophageal echocardiogram performed by anesthesia. HISTORY OF PRESENT ILLNESS: This is a 71-year-old gentleman who is followed by Dr. Beto Mcknight on an outpatient basis. The patient is also followed by Dr. House from [facility]. He has a past medical history which includes hypertension, remote history of pneumonia, remote history of tobacco abuse which he quit over 20 years ago, hyperlipidemia, and osteoarthritis. Recently, the patient presented to his primary care office for an annual checkup. During his office visit a 12-lead EKG was performed which was normal. While out Dr. Mcknight's office the patient did report that he has been having some complaints of progressive shortness of breath with periodic episodes of chest pain with activity. Subsequently, although the patient had a normal 12- lead EKG he was referred to Dr. House to undergo a stress echocardiogram due to his symptoms of shortness of breath and chest pain. On 04/30/2017 the patient underwent a stress echocardiogram which showed an average exercise tolerance with positive electrocardiographic stress testing and occasional premature ventricular contractions. It also showed abnormal stress echocardiogram with baseline segmental wall motion abnormality that got worse at peak exercise, suggestive of stress-induced ischemia in the left anterior descending coronary artery territory. On 05/01/2016 the patient was taken to the cardiac Research Leader and after obtaining consent underwent a cardiac catheterization which demonstrated him to have a totally occluded left anterior descending coronary artery, a subtotally occluded circumflex coronary artery with slow flow into the distal circumflex, and a 90% stenosis to his posterior descending coronary artery. Due to the patient's symptoms of shortness of breath, complaints of chest pain and his abnormal stress test results and cardiac catheterization results Dr. Lacey from cardiothoracic surgery was asked to evaluate the patient. Dr. Lacey discussed the cardiac catheterization results with the patient and his and recommended the patient undergo an elective myocardial revascularization surgery. HOSPITAL COURSE: The patient was admitted to the hospital and after obtaining consent was taken to the operating room where Dr. Edwin Lacey performed an elective off-pump coronary artery bypass grafting 4 vessels with placement of his left internal mammary artery to the left anterior descending coronary artery , a sequential right radial artery graft to his first and second obtuse marginal coronary arteries, a left radial artery graft to the right coronary artery. He also underwent bilateral endovascular radial artery harvesting, intraoperative epi-aortic ultrasound and intraoperative transesophageal echocardiogram which was performed by anesthesia. The patient was then transferred to the cardiovascular intensive care unit where he was recovered, monitored hemodynamically, and where he progressed to cardiac rehabilitation phase 1. He was extubated, all lines, tubes, and drips were discontinued when appropriate and he was transferred to [address] [place] [address] for further monitoring and rehabilitation. Postoperatively he did have some episodes of paroxysmal atrial fibrillation which were treated accordingly. His oxygen was titrated down to room air and he continued to work with physical therapy and cardiac rehab. He has received written and verbal instructions regarding his medications, activity restrictions, and symptoms requiring physician notification and follow-up appointments. He is ready to be discharged home on postoperative day #6 and he will be followed by [facility]. COMPLICATIONS: His postoperative recovery was complicated by some paroxysmal atrial fibrillation which was treated accordingly. CONSULTATIONS: 1. Dr. House for cardiology management. 2. Dr. Beto Mcknight for medical management. 3. Dr. Manzanares for pulmonary and ventilator management. DISCHARGE INSTRUCTIONS: 1. No driving for 4 weeks, or until physician gives their ok. 2. The patient should sleep in their own bed, no medical bed needed. 3. Stairs are not an issue. If the bedroom is upstairs, it is advised that the patient go up at night and down in the morning for the first week. Go slowly, using handrail and take 1 step at a time. 4. SUSIE hose are to be worn for 30 days or until physician discontinues. 5. Heart hugger is to be worn 100% of the time until physician discontinues.( except when showering) 6. No lifting, pushing, or pulling more than 10 pounds for 12 weeks. The physician will advise of any restriction changes. 7. The patient is expected to continue the prescribed walking program. 8. Continue pain control per as needed orders. 9. Continue with incentive spirometry and splinting/heart hugger until otherwise directed by the physician. 10. Must shower daily using liquid antibacterial soap and a separate white washcloth for each individual incision. 11. Routine sternal incision care, no ointments, lotions or powders on the incisions. 12. Please notify surgeon/nurse practitioner for temperature greater than 101F or purulent drainage from incisions 13. Prescriptions for first 30 days given per cardiac surgery service. After 30 days, all prescription refills obtained through cardiology/primary care physician. 14. A red arm and has been placed on this patient it should be worn for 30 days post surgery and will be removed by the cardiothoracic surgeons. If an ER visit is necessary, please make sure the number on the red arm band is called. 15. The patient has had some episodes of hypotension and will not be discharged home on an MARY ANNE inhibitor at this time although will be reevaluated on an outpatient basis. The patient will also be discharged home on Norvasc 2.5 mg by mouth daily which should not be discontinued. The Norvasc is in placed for the radial artery harvest and to prevent radial artery spasming. HOME HEALTH SERVICES TO PROVIDE: RN SKILLED HOME CARE SERVICES FOR POST-OP SURGICAL PATIENTS WITH THE FOLLOWING: Coronary Artery Bypass Surgery (CABG), Mitral Valve Replacement/ Repair ( MVR), Aortic Valve Replacement/Repair (AVR) RN TO CONTINUE EDUCATION FROM ``ROAD TO A HEALTH HEART PATIENT EDUCATION MANUAL" (GIVEN TO PATIENT IN THE HOSPITAL) MEDICATION RECONCILIATION WITH EDUCATION NEEDED ON FIRST HOME VISIT EMPHASIZE IMPORTANCE OF WEARING BREAST SUPPORT/HEART HUGGER ENCOURAGE USE OF INCENTIVE SPIROMETER 10 X EVERY HOUR WHILE AWAKE ENCOURAGE UTILIZATION OF LOWER EXTREMITY COMPRESSION STOCKINGS/SUSIE HOSE and ELEVATE LEGS ABOVE LEVEL OF HEART WHILE AT REST. ENCOURAGE AMBULATION 3-5x/day INCREASING TOLERATES, WHILE AVOID EXTREMES IN TEMPERATURE FREQUENCY: RN TO OPEN THE PATIENT WITHIN 24 HOURS OF DISCHARGE FROM THE HOSPITAL WITH TELEHEALTH INSTALLED AT [facility], RN TO VISIT 2-3 X A WEEK FOR 4 WEEKS ESTABLISHED BY PATIENT NEEDS. REMOVAL OF SUTURES: NURSING SERVICES TO REMOVE SUTURES TWO WEEKS POST SURGICAL DATE 05/28/2017. If any questions regarding suture removal please call the office at [phone]. LABORATORY: CBC, CMP TO BE DRAWN ON THE THIRD DAY HOME, 05/23/2017 (RAN STAT) FAX RESULTS TO [phone]. TELEHEALTH PARAMETERS: WEIGHT: NOTIFY MD OF WEIGHT GAIN OF 2 LBS IN 24 HOURS OR 5 LBS IN ONE WEEK HR: NOTIFY MD OF HR <55 BPM OR HR>100 BPM BP: NOTIFY MD IF BP <90/55 OR BP>140/100 O2 SAT: NOTIFY MD IF PO2<93% ON ROOM AIR SEND TELEHEALTH REPORT TO HOUSEKEEPER CLEANING COOKING AND CARDIOVASCULAR SURGEON THE FIRST WEEK OF CARE AND THEN BI-WEEKLY. PLEASE ADDITIONALLY COMMUNICATE ANY ABNORMALS AND NEW FINDINGS TO THE SURGEONS OFFICE. Plan - Discharge Summary Discharge Rx Participant: Yes New Discharge Prescriptions: New Furosemide [Lasix] 20 mg PO DAILY #7 tab Amiodarone [Cordarone] 400 mg PO BID #54 tab amLODIPine [Norvasc] 2.5 mg PO DAILY@1200 #30 tab Aspirin 325 mg PO DAILY #30 tab Atorvastatin [Lipitor] 40 mg PO DAILY #30 tab Clopidogrel [Plavix] 75 mg PO DAILY #30 tab HYDROcodone/APAP 5-325MG [Yale 5-325] 1 - 2 each PO Q6HR PRN #90 tab PRN Reason: Moderate Pain Metoprolol Tartrate [Lopressor] 12.5 mg PO BID #60 tab Pantoprazole [Protonix] 40 mg PO AC-BRKFST #30 tablet. Sennosidepolo-Docusate Sodium [Senokot-S] 2 each PO HS tab Tamsulosin [Flomax] 0.4 mg PO HS #30 cap.er.24h Continue Multivitamins, Thera [Multivitamin (formulary)] 1 tab PO DAILY Discontinued Aspirin EC [Ecotrin Low Dose] 81 mg PO DAILY #30 tablet. Atorvastatin [Lipitor] 80 mg PO HS #30 tab Metoprolol Tartrate [Lopressor] 25 mg PO BID #60 tab Nitroglycerin Sl Tabs [Nitrostat] 0.4 mg SUBLINGUAL Q5M PRN #100 tab PRN Reason: Chest Pain Lisinopril [Zestril] 10 mg PO BID #60 tab Ibuprofen 600 mg PO ONCE PRN PRN Reason: Pain Discharge Medication List Multivitamins, Thera [Multivitamin (formulary)] 1 tab PO DAILY 05/09/17 [History ] Amiodarone [Cordarone] 400 mg PO BID #54 tab 05/20/17 [Rx] Aspirin 325 mg PO DAILY #30 tab 05/20/17 [Rx] Atorvastatin [Lipitor] 40 mg PO DAILY #30 tab 05/20/17 [Rx] Clopidogrel [Plavix] 75 mg PO DAILY #30 tab 05/20/17 [Rx] Furosemide [Lasix] 20 mg PO DAILY #7 tab 05/20/17 [Rx] HYDROcodone/APAP 5-325MG [Yale 5-325] 1 - 2 each PO Q6HR PRN #90 tab 05/20/17 [ Rx] Metoprolol Tartrate [Lopressor] 12.5 mg PO BID #60 tab 05/20/17 [Rx] Pantoprazole [Protonix] 40 mg PO AC-BRKFST #30 tablet.dr 05/20/17 [Rx] Sennosides-Docusate Sodium [Senokot-S] 2 each PO HS tab 05/20/17 [Rx] Tamsulosin [Flomax] 0.4 mg PO HS #30 cap.er.24h 05/20/17 [Rx] amLODIPine [Norvasc] 2.5 mg PO DAILY@1200 #30 tab 05/20/17 [Rx] Follow up Appointment(s)/Referral(s): Beto Mcknight MD [Primary Care Provider] - 05/23/17 10:00 am Carlos Manzanares MD [STAFF PHYSICIAN] - 05/30/17 2:15 pm Rolando House MD [STAFF PHYSICIAN] - 2 Weeks (Spoke with Sailaja House's office, they will call with a follow-up appointment to see Dr. House within the next week.) Edwin Lacey MD [STAFF PHYSICIAN] - 06/11/17 10:15 am [facility], [NON-STAFF] - Sailaja De La O NPC [Nurse Practitioner] - 05/28/17 1:00 pm Ambulatory/Diagnostic Orders: Complete Blood Count w/diff [LAB.AMB] Time Frame: 3 Days, Location: Determined By Patient Comprehensive Metabolic Panel [LAB.AMB] Time Frame: 3 Days, Location: Determined By Patient Patient Instructions/Handouts: Sternal Precautions (GEN), Coronary Artery Bypass Graft (DC) Discharge Disposition: HOME WITH HOME HEALTH SERVICES
--- NOTE | 2017-05-20 16:17 | PN ---
PROGRESS NOTE Mr. connor is a gentleman with history of aortocoronary bypass surgery. Postprocedure course was complicated by a bout of atrial fibrillation. He is doing well this morning. Remains in sinus rhythm. Hemodynamically stable, ambulating the hallways without symptoms. Vital signs are stable. S1-S2 heard normally. Lungs reveal bilateral air entry that is decent. Abdomen and lower extremity exam is unchanged. Plan is to continue current medications and incentive spirometry and he is likely to be discharged. He will follow with Dr. House in 2 weeks. MMODL / IJN: [id number] /
[2017-06-04 12:24] LABS: ABG HCO3 24 mmol/L (21-25); ABG Oxygen Saturation 99.5 % (94-97); ABG PCO2 40 mmHg (35-45); ABG PH 7.38 (7.35-7.45); ABG PO2 187 mmHg (83-108); ABG Potassium Whole Blood 4.7 mmol/L (3.4-4.5); ABG Sodium Whole Blood 138 mmol/L (135-146); ABG TCO2 25 mmol/L (19-24)
[2017-06-04 12:24] LABS: ABG Base Excess -1.5 mmol/L; ABG HCO3 24 mmol/L (21-25); ABG Oxygen Saturation 99.6 % (94-97); ABG PCO2 44 mmHg (35-45); ABG PH 7.35 (7.35-7.45); ABG PO2 191 mmHg (83-108); ABG Potassium Whole Blood 4.7 mmol/L (3.4-4.5); ABG Sodium Whole Blood 138 mmol/L (135-146); ABG TCO2 26 mmol/L (19-24)
[2017-06-04 12:24] LABS: ABG Base Excess -0.5 mmol/L; ABG HCO3 24 mmol/L (21-25); ABG PCO2 38 mmHg (35-45); ABG PH 7.41 (7.35-7.45); ABG PO2 350 mmHg (83-108); ABG Sodium Whole Blood 139 mmol/L (135-146); ABG TCO2 25 mmol/L (19-24)
[2017-06-04 12:25] LABS: ABG Base Excess -2.1 mmol/L; ABG HCO3 23 mmol/L (21-25); ABG Oxygen Saturation 99.5 % (94-97); ABG PCO2 41 mmHg (35-45); ABG PH 7.36 (7.35-7.45); ABG PO2 188 mmHg (83-108); ABG Potassium Whole Blood 4.6 mmol/L (3.4-4.5); ABG Sodium Whole Blood 138 mmol/L (135-146); ABG TCO2 25 mmol/L (19-24)
[2017-06-04 12:25] LABS: ABG Base Excess -4.1 mmol/L; ABG HCO3 22 mmol/L (21-25); ABG Oxygen Saturation 98.7 % (94-97); ABG PCO2 43 mmHg (35-45); ABG PH 7.32 (7.35-7.45); ABG PO2 134 mmHg (83-108); ABG Potassium Whole Blood 4.3 mmol/L (3.4-4.5); ABG Sodium Whole Blood 139 mmol/L (135-146); ABG TCO2 23 mmol/L (19-24)
== END 2017-05-20 15:46 | disposition home health service (06) | DRG 236 ==
LOC: 2ORMAIN 05:41 → 6ICU 14:04 → 6SEL 05-19 15:44
PROVIDERS: ADMIT Thoracic Surgery (Cardiothoracic Vascular Surgery); ATTEND Thoracic Surgery (Cardiothoracic Vascular Surgery)
PROC: 02130Z3 Bypass Coronary Artery, Four or More Arteries from Coronary Artery, Open Approach (ICD-10-PCS; principal; 2017-05-14 07:30)
PROC: 5A1221Z Performance of Cardiac Output, Continuous (ICD-10-PCS; principal; 2017-05-14 07:30)
PROC: 03BC0ZZ Excision of Left Radial Artery, Open Approach (ICD-10-PCS; principal; 2017-05-14 07:30)
PROC: 02100Z9 Bypass Coronary Artery, One Artery from Left Internal Mammary, Open Approach (ICD-10-PCS; principal; 2017-05-14 07:30)
PROC: B246ZZ4 Ultrasonography of Right and Left Heart, Transesophageal (ICD-10-PCS; principal; 2017-05-14 07:30)
DX: I25.119 Atherosclerotic heart disease of native coronary artery with unspecified angina pectoris (principal); E87.70 Fluid overload, unspecified; I25.82 Chronic total occlusion of coronary artery; J98.11 Atelectasis; I48.0 Paroxysmal atrial fibrillation; I25.5 Ischemic cardiomyopathy; E66.9 Obesity, unspecified; E78.5 Hyperlipidemia, unspecified; I10 Essential (primary) hypertension; F17.201 Nicotine dependence, unspecified, in remission; K59.00 Constipation, unspecified; M19.90 Unspecified osteoarthritis, unspecified site; Z87.01 Personal history of pneumonia (recurrent); Z82.49 Family history of ischemic heart disease and other diseases of the circulatory system; Z79.899 Other long term (current) drug therapy; Z79.82 Long term (current) use of aspirin; Z88.0 Allergy status to penicillin; Z88.8 Allergy status to other drugs, medicaments and biological substances; Z68.37 Body mass index [BMI] 37.0-37.9, adult; Z79.1 Long term (current) use of non-steroidal anti-inflammatories (NSAID); Z88.7 Allergy status to serum and vaccine
CPT/HCPCS: 71045; 71046; 80053; 81003; 82330; 82805; 83735; 84100; 84132; 85025; 85027; 85520; 85610; 85730; 86850; 86891; 86900; 86901; 86920; 94002; 94640

== ENCOUNTER → 2017-07-02 | Outpatient (CLI) | payer MEDICARE ==
[2017-07-02 11:46] LABS: ALT 37 U/L (21-72); AST 28 U/L (17-59); Albumin 4.2 g/dL (3.5-5.0); Alkaline Phosphatase 61 U/L (38-126); Anion Gap 11 mmol/L; Blood Urea Nitrogen 20 mg/dL (9-20); Calcium 9.2 mg/dL (8.4-10.2); Carbon Dioxide 26 mmol/L (22-30); Chloride 105 mmol/L (98-107); Cholesterol 123 mg/dL (<200); Glucose 90 mg/dL (74-99); HDL Cholesterol 47 mg/dL (40-60); LDL Cholesterol,Calculated 59 mg/dL (0-99); Potassium 5.1 mmol/L (3.5-5.1); Sodium 142 mmol/L (137-145); Total Bilirubin 0.3 mg/dL (0.2-1.3); Total Protein 6.7 g/dL (6.3-8.2); Triglycerides 83 mg/dL (<150)
== END | disposition home or self-care (01) ==
LOC: LABWHC1 11:04
PROVIDERS: ATTEND Internal Medicine Interventional Cardiology
DX: E78.2 Mixed hyperlipidemia (principal); D48.0 Neoplasm of uncertain behavior of bone and articular cartilage
CPT/HCPCS: 36415; 80053; 80061; 84443

== ENCOUNTER → 2017-10-29 | Outpatient (CLI) | payer MEDICARE ==
[2017-10-29 11:49] LABS: Albumin 4.2 g/dL (3.5-5.0); Calcium 9.5 mg/dL (8.4-10.2); Potassium 5.2 mmol/L (3.5-5.1); Total Bilirubin 0.5 mg/dL (0.2-1.3); Total Protein 6.5 g/dL (6.3-8.2)
== END | disposition home or self-care (01) ==
LOC: LABWHC1 10:14
PROVIDERS: ATTEND Internal Medicine Interventional Cardiology
DX: E78.2 Mixed hyperlipidemia (principal); I48.0 Paroxysmal atrial fibrillation
CPT/HCPCS: 36415; 80053; 80061; 84443

== ENCOUNTER → 2017-11-13 | Outpatient (CLI) | payer MEDICARE ==
[2017-11-13 10:40] LABS: Albumin 4.4 g/dL (3.5-5.0); Calcium 9.5 mg/dL (8.4-10.2); Potassium 5.3 mmol/L (3.5-5.1); Total Bilirubin 0.9 mg/dL (0.2-1.3)
== END | disposition home or self-care (01) ==
LOC: LABWHC1 10:03
PROVIDERS: ATTEND Nurse Practitioner Adult Health
DX: I25.5 Ischemic cardiomyopathy (principal)
CPT/HCPCS: 36415; 80053

== ENCOUNTER → 2018-02-03 | Outpatient (CLI) | payer MEDICARE ==
[2018-02-03 16:36] LABS: Albumin 4.4 g/dL (3.80-4.90); Albumin/Globulin Ratio 2.44 (1.20-2.10); Anion Gap 5.4 mmol/L (4.00-12.00); Calcium 9.1 mg/dL (8.7-10.3); Carbon Dioxide 25.6 mmol/L (21.6-31.8); Globulin 1.8 g/dL (2.1-3.7); LDL Cholesterol,Calculated 49.4 mg/dL (0.0-131.0); Potassium 5.2 mmol/L (3.5-5.5); Total Bilirubin 0.4 mg/dL (0.3-1.2); Total Protein 6.2 g/dL (6.2-8.2); VLDL Calculation 14.6 mg/dL (5.00-40.00)
== END ==
LOC: LABWHC1 10:16
PROVIDERS: ATTEND Internal Medicine Interventional Cardiology
DX: E78.2 Mixed hyperlipidemia (principal)
CPT/HCPCS: 36415; 80053; 80061

== ENCOUNTER 2018-02-11 08:34 | Day surgery (SDC) | payer MEDICARE ==
[2018-02-06 12:23] VITALS: BMI 31.4
[~2018-02-11 08:34] MED LIST changes: -ALBUMIN HUMAN 25% 50 ML IV ONE; -ALBUMIN HUMAN 5% 500 ML IVPB ONE; -ASPIRIN 325 MG TAB PO ONE; -ATORVASTATIN 10 MG TAB PO ONE; -CALCIUM CHLORIDE 100 MG/ML 10 ML SYRINGE IV ONE; -CARDIOPLEGIC SOLN (K+ 16 MEQ/L 1,000 ML with SODIUM BICARB (1 MEQ/ML) 20 ML, LIDOCAINE ... PERFUSION ONE; -CHLORHEXIDINE GLUCONATE 15 ML CUP MUCOUS MEM ONE; -CLEVIDIPINE BUTYRATE 25 MG in EMPTY BAG 1 BAG IV ONE; -DILTIAZEM 125 MG in SODIUM CHLORIDE 0.9% 100 ML IV ONE; -HEPARIN SODIUM 1,000 UN/ML (10ML VL) IV ONE; -HEPARIN SODIUM,PORCINE 5,000 UNIT in SODIUM CHLORIDE 0.9% 500 ML IV ONE; -INSULIN REGULAR 100 UNIT in SODIUM CHLORIDE 0.9% 100 ML IV ONE; -LACTATED RINGERS 1,000 ML IV ONE; +LACTATED RINGERS 1,000 ML IV SCH; -MAGNESIUM SULFATE MG 500 MG/ML VIAL IV ONE; -MANNITOL 25% 12.5 GM/50 ML VIAL IV ONE; -METOPROLOL TARTRATE 12.5 MG TAB PO ONE; -MUPIROCIN 2% OINT 22 GM TUBE NASAL ONE; -NITROGLYCERIN SL TABS 0.4 MG TAB SUBLINGUAL ONE; -NITROGLYCERIN-D5W PMX 25 MG/250 ML BTL IV ONE; -NITROGLYCERIN-D5W PMX 50 MG in DEXTROSE/WATER 1 250ML.BAG IV ONE; -NOREPINEPHRIN 4 MG-0.9% NS PMX 4 MG/250 ML ML IV ONE; -PAPAVERINE 360 MG in SODIUM CHLORIDE 0.9% 90 ML IV ONE; -PHENYLEPHRINE 40 MG in SODIUM CHLORIDE 0.9% 250 ML IV ONE; -PHENYLEPHRINE-0.9% NACL SYG 1 MG/10 ML SYRINGE IV ONE; -PROPOFOL 1,000 MG/100 ML VIAL IV ONE; -PROTAMINE SULFATE 10 MG/ML 25 ML VIAL IV ONE; -PROTAMINE SULFATE 250 MG in EMPTY BAG 1 BAG IV ONE; -SODIUM BICARB 8.4% 50 ML SYR (1 MEQ/ML) IV ONE; -SODIUM CHLORIDE 0.9% 1,000 ML IV ONE; -TRANEXAMIC ACID 2,000 MG in SODIUM CHLORIDE 0.9% 180 ML IV ONE; -ceFAZolin 1,000 MG in SODIUM CHLORIDE 0.9% IRRIGATIO 1,000 ML IRRIGATION ONE; -ceFAZolin 2,000 MG in SODIUM CHLORIDE 0.9% 30 ML IVPB ONE; -ceFAZolin 3 GM in SODIUM CHLORIDE 0.9% 30 ML IVPB ONE
[2018-02-11 08:54] VITALS: TEMP 98.2
[2018-02-11] MEDS ORDERED: PROPOFOL 10 MG/ML 20 ML VIAL IV ONE (09:28)
--- NOTE | 2018-02-11 09:33 | P.GSHP ---
History of Present Illness H&P Date: 02/11/18 CHIEF COMPLAINT: Colon screen HISTORY OF PRESENT ILLNESS: The patient is a 72-year-old male who presents for colon screen. Lower endoscopy was offered for further evaluation and management. PAST MEDICAL HISTORY: Please see list. PAST SURGICAL HISTORY: Please see list. MEDICATIONS: Please see list. ALLERGIES: Please see list. SOCIAL HISTORY: No illicit drug use FAMILY HISTORY: No reports of Crohn disease or ulcerative colitis. REVIEW OF ORGAN SYSTEMS: CONSTITUTIONAL: No reports of fevers or chills. PHYSICAL EXAM: VITAL SIGNS: Stable GENERAL: Well-developed pleasant in no acute distress. HEENT: No scleral icterus. Extraocular movements grossly intact. Moist buccal mucosa. NECK: Supple without lymphadenopathy. CHEST: Unlabored respirations. Equal bilateral excursions. CARDIOVASCULAR: Regular rate and rhythm. Distal 2+ pulses. ABDOMEN: Soft, nontender, nondistended. MUSCULOSKELETAL: No clubbing, cyanosis, or edema. ASSESSMENT: 1. Colon screen. PLAN: 1. Recommend proceeding with a lower endoscopy Past Medical History Past Medical History: Coronary Artery Disease (CAD), Chest Pain / Angina, Hyperlipidemia, Hypertension, Pneumonia Additional Past Medical History / Comment(s): PAST HX OF RECURRENT LEFT LEG ULCER X3 History of Any Multi-Drug Resistant Organisms: None Reported Past Surgical History: Coronary Bypass/CABG, Heart Catheterization Additional Past Surgical History / Comment(s): STATES PROCEDURE TO IMPROVE CIRCULATION LEFT LEG DONE AT DRS OFFICE. Past Anesthesia/Blood Transfusion Reactions: No Reported Reaction Additional Past Anesthesia/Blood Transfusion Reaction / Comment(s): PT STATES HE HAS NOT RECEIVED ANESTHESIA Smoking Status: Former smoker - Past Family History Father Family Medical History: Myocardial Infarction ([place]) Additional Family Medical History / Comment(s): at age 90 from mi Mother Family Medical History: No Reported History Additional Family Medical History / Comment(s): at age 92 "from old age" Medications and Allergies Home Medications Medication Instructions Recorded Confirmed Type Atorvastatin [Lipitor] 40 mg PO DAILY #30 tab 05/20/17 02/11/18 Rx Clopidogrel [Plavix] 75 mg PO DAILY #30 tab 05/20/17 02/06/18 Rx Metoprolol Tartrate [Lopressor] 12.5 mg PO BID #60 tab 05/20/17 02/06/18 Rx Lisinopril [Zestril] 10 mg PO DAILY 02/06/18 02/06/18 History Spironolactone [Aldactone] 25 mg PO DAILY 02/06/18 02/11/18 History Allergies Allergy/AdvReac Type Severity Reaction Status Date / Time Penicillins Allergy Rash/Hives Verified 02/11/18 08:45 procaine [From Novocain] Allergy Dyspnea Verified 02/11/18 08:45 Influenza Virus Vaccines AdvReac Unknown DID NOT Verified 02/11/18 08:45 FEEL WELL , PASSED OUT . Surgical - Exam Vital Signs Temp Pulse Resp BP Pulse Ox 98.2 F 62 16 119/72 96 02/11/18 08:53 02/11/18 08:53 02/11/18 08:53 02/11/18 08:53 02/11/18 08:53
--- NOTE | 2018-02-11 10:00 | P.PCN ---
Date of Procedure: 02/11/18 Description of Procedure: PREOPERATIVE DIAGNOSIS: Colonic surveillance History of high risk colon polyps POSTOPERATIVE DIAGNOSIS: Colonic surveillance History of high risk colon polyps Ascending colon polyp Hepatic flexure polyp Proximal transverse colon polyp Sigmoid colon polyp Severe descending and sigmoid colon diverticulosis OPERATION: Colonoscopy to the ileocecal valve and appendiceal orifice. Colonoscopy with hot snare polypectomy at ascending colon Colonoscopy with multiple cold forceps biopsies. SURGEON: Kayley Castle MD. ANESTHESIA: MAC. INDICATIONS: The patient is a 72-year-old male who has history of high-risk colon polyps, last colonoscopy 2 years ago. Benefits and risks were described and informed consent was obtained. DESCRIPTION OF PROCEDURE: The patient had undergone Gatorade, MiraLAX and Dulcolax prep. He had been brought into the operating room and laid in the left lateral decubitus position. After adequate intravenous sedation, the rectum was examined with 2% lidocaine jelly. No external hemorrhoids were encountered. The prostate was smooth and without in the maladies. The rectal tone was within normal limits. No lesions were palpated in the rectal vault. An Olympus colonoscope was advanced until the ileocecal valve and appendiceal orifice were clearly viewed. The prep was fair with visualization of the mucosal folds. The scope was removed with visualization of each mucosal fold. Severe descending and sigmoid diverticulosis was encountered. Multiple colonic polyps were found and cold forcep biopsy or snare polypectomy. No evidence of focal colitis was found. Retroflexion of the scope demonstrated grade 1 internal hemorrhoids without active bleeding or inflammation. The colon was desufflated. The patient had tolerated the procedure well. Withdrawal time was over 6 minutes. FINDINGS: No internal hemorrhoids No external hemorrhoids Severe descending and sigmoid diverticulosis was encountered. No arteriovenous malformations. Removal of 4 polyps: - Snare polypectomy ascending colon, 4 mm tubulovillous adenoma polyp. - Cold forceps biopsy at 15 cm from the anal verge, 4 mm polyp, sigmoid colon - Cold forceps biopsy at hepatic flexure colon, 5 mm polyp. - Cold forceps biopsy at proximal transverse colon, 4 mm polyp. No focal colitis. RECOMMENDATIONS: Given severity of tubular adenomas, recommend repeat colonoscopy 3 years, 2020 Plan - Discharge Summary New Discharge Prescriptions: No Action Atorvastatin [Lipitor] 40 mg PO DAILY #30 tab Clopidogrel [Plavix] 75 mg PO DAILY #30 tab Metoprolol Tartrate [Lopressor] 12.5 mg PO BID #60 tab Lisinopril [Zestril] 10 mg PO DAILY Spironolactone [Aldactone] 25 mg PO DAILY Discharge Medication List Atorvastatin [Lipitor] 40 mg PO DAILY #30 tab 05/20/17 [Rx] Clopidogrel [Plavix] 75 mg PO DAILY #30 tab 05/20/17 [Rx] Metoprolol Tartrate [Lopressor] 12.5 mg PO BID #60 tab 05/20/17 [Rx] Lisinopril [Zestril] 10 mg PO DAILY 02/06/18 [History] Spironolactone [Aldactone] 25 mg PO DAILY 02/06/18 [History]
[2018-02-11 10:03] VITALS: RESP 18
[2018-02-11 10:13] VITALS: BP 112/7; PULSE 55
== END 2018-02-11 10:40 | disposition home or self-care (01) ==
LOC: ORWHC2ENDO 08:34
PROVIDERS: ATTEND Surgery Plastic and Reconstructive Surgery
DX: Z12.11 Encounter for screening for malignant neoplasm of colon (principal); D12.2 Benign neoplasm of ascending colon; K63.5 Polyp of colon; K57.30 Diverticulosis of large intestine without perforation or abscess without bleeding; Z86.010 Personal history of colon polyps; I25.119 Atherosclerotic heart disease of native coronary artery with unspecified angina pectoris; I10 Essential (primary) hypertension; Z87.891 Personal history of nicotine dependence; E78.5 Hyperlipidemia, unspecified; Z95.1 Presence of aortocoronary bypass graft; Z79.02 Long term (current) use of antithrombotics/antiplatelets; Z79.899 Other long term (current) drug therapy; K64.0 First degree hemorrhoids; Z88.0 Allergy status to penicillin; Z88.4 Allergy status to anesthetic agent; Z88.7 Allergy status to serum and vaccine
CPT/HCPCS: 88305; 45380; 45385; J2704

== ENCOUNTER → 2018-02-24 | Outpatient (CLI) | payer MEDICARE ==
[2018-02-24 11:16] LABS: HGB 14.9 gm/dL (13.0-17.5); MCH 32.2 pg (25.0-35.0); MCHC 33.8 g/dL (31.0-37.0); MCV 95.3 fL (80.0-100.0); Mean Platelet Volume 6.7; Platelet Count 179 k/uL (150-450); RBC 4.62 m/uL (4.30-5.90); RDW 13.3 % (11.5-15.5); WBC 5.5 k/uL (3.8-10.6)
[2018-02-24 11:26] LABS: Potassium 4.9 mmol/L (3.5-5.1)
== END | disposition home or self-care (01) ==
LOC: LABPAT 09:51
PROVIDERS: ATTEND Internal Medicine Clinical Cardiac Electrophysiology
DX: Z01.812 Encounter for preprocedural laboratory examination (principal); I50.22 Chronic systolic (congestive) heart failure; I25.10 Atherosclerotic heart disease of native coronary artery without angina pectoris
CPT/HCPCS: 36415; 80051; 82565; 82947; 84520; 85027

== ENCOUNTER 2018-03-05 12:58 | Day surgery (SDC) | payer MEDICARE ==
[2018-03-03 13:50] VITALS: BMI 31.0
[~2018-03-05 12:58] MED LIST changes: +CLINDAMYCIN 600 MG in SODIUM CHLORIDE 0.9% IRRIGATIO 250 ML IRRIGATION ONE; +CLINDAMYCIN 900 MG in DEXTROSE 5% IN WATER 50 ML IVPB ONE; -LACTATED RINGERS 1,000 ML IV SCH; +SODIUM CHLORIDE 0.9% 1,000 ML IV SCH
[2018-03-05] MEDS ORDERED: PROPOFOL 10 MG/ML 20 ML VIAL IV ONE (16:39)
[2018-03-05] MEDS ORDERED: MIDAZOLAM 2 MG/2 ML VIAL ONE (16:39)
[2018-03-05] MEDS ORDERED: fentaNYL (PF) 50 MCG/ML 2 ML AMP ONE (16:39)
[2018-03-05] MEDS ORDERED: IOPAMIDOL-250 100ML BTL IV ONE ×2 (17:06)
[2018-03-05] MEDS ORDERED: LIDOCAINE 1% INJ 10MG/ML (20 ML MDV) ONE (17:11)
[2018-03-05] MEDS ORDERED: LIDOCAINE 1% INJ 10MG/ML (20 ML MDV) SQ ONE ×2 (17:20→17:35)
[2018-03-05] MEDS ORDERED: ACETAMINOPHEN IV (For NPO) 1,000 MG in EMPTY BAG 1 BAG IVPB ONE (18:08)
[2018-03-05] MEDS ORDERED: ACETAMINOPHEN TAB 325 MG TAB PO PRN (18:08)
[2018-03-05] MEDS: METOPROLOL TARTRATE 12.5 MG TAB PO SCH (20:12)
[2018-03-05] MEDS ORDERED: ATORVASTATIN 40 MG TAB PO SCH (21:00)
[2018-03-05] MEDS: CLINDAMYCIN 900 MG in DEXTROSE 5% IN WATER 50 ML IVPB SCH ×2 (22:34)
[2018-03-05] MEDS: HYDROcodone/APAP 5-325MG 1 EACH TAB PO PRN (23:49)
--- NOTE | 2018-03-05 23:54 | PCN ---
PROCEDURE NOTE 72-year-old male patient with ischemic cardiomyopathy, congestive heart failure class 2. He is brought in for single-chamber ICD implantation for primary prevention of sudden cardiac . The patient is brought to the EP lab in a fasting state. Written informed consent was obtained prior to the procedure. The left shoulder area was prepped and draped as per protocol. 1% lidocaine was used for local anesthesia. A 4 cm incision made parallel to the deltopectoral groove, about 1.5 cm medial to it. The incision was carried down to the level of the pectoralis muscle. A subfascial pocket was made. Hemostasis was assured. The left axillary vein was accessed at a single point under fluoroscopy and via appropriately-sized introducer sheaths the lead was positioned in the RV apex. This was a single coil [employer] ICD lead model #7122 Q, 58 cm length and serial number [id number]. The Tim protocol was followed. R-waves 12 mV. Pacing impedance 540 ohms, pacing threshold 0.5 V at 0.5 milliseconds. Pacing impedance 740 ohms, pacing threshold 0.5 V at 0.5 milliseconds. 10 V test negative. The lead was secured to the underlying pectoralis fascia using 2 nonabsorbable sutures. Pocket was irrigated with antibiotic solution. Leads was connected to the generator ([employer] model number CD 1411-36 Q serial #[id number]) the leads and the generator were then placed in subfascial pocket. The wound was closed in 3 layers and dressed per protocol. DFT testing under anesthesia: DC Fib shock was used to induce ventricular fibrillation. This was adequately and appropriately detected at least sensitivity and successfully internally defibrillated with 10-joule shock. Charge time 1.8 seconds and shock impedance 75 ohms. No post shock noise. The device was then programmed to VVI 40 beats per minute. Appropriate antitachycardia pacing cardioversion defibrillation were programmed, programming was programmed. RESULTS: Successful single-chamber ICD implantation for primary prevention of sudden cardiac in this gentleman with a history of ischemic cardiomyopathy coronary artery disease, old myocardial infarction, persistently reduced LV systolic function despite guideline-directed medical treatment, class 2 congestive heart failure. DFT at or below 10 joules. PLAN: IV antibiotics and discharge home tomorrow. Follow up in the office. MMODL / IJN: [id number] /
[2018-03-06] MEDS: CLINDAMYCIN 900 MG in DEXTROSE 5% IN WATER 50 ML IVPB SCH ×6 (04:26→16:34)
[2018-03-06] MEDS: HYDROcodone/APAP 5-325MG 1 EACH TAB PO PRN (05:06)
--- NOTE | 2018-03-06 07:17 | P.DS ---
Providers Attending physician: Hayden Hartmann Primary care physician: Beto Mcknight [facility] Course: Patient is doing well but this morning when he went for the chest x-ray he became dizzy and lightheaded and his blood pressure dropped to the 90s. His mouth is dry Cozaar is dry he hadn't eaten anything since the night before his ICD implant. He is receiving IV fluids and is already feeling better. He is alert and oriented Examination his ICD site is healing very well without any hematoma minimal soakage Normal heart sounds no murmurs or gallops or rub Breath sounds are clear no adventitious sounds breath sounds are equal bilaterally Abdomen soft nontender Extremities is warm no edema no JVD no hepatojugular reflux Patient examined after receiving IV fluids. He looks a lot better. He drank some water received IV fluids and is now sitting up in bed eating breakfast. No JVD no hepatojugular reflux Plan Discharge home at 5 PM after completion of IV antibiotics. Patient is set up in bed. Hold off on all blood pressure medications for one day and then restart again tomorrow. He should be discharged on his home medications Device clinic follow-up in [address] House as previously scheduled Patient Condition at Discharge: Stable Plan - Discharge Summary Discharge Rx Participant: No New Discharge Prescriptions: No Action RX: Clopidogrel [Plavix] 75 mg PO DAILY #30 tab Lisinopril [Zestril] 10 mg PO DAILY Spironolactone [Aldactone] 25 mg PO DAILY Multivitamins, Thera [Multivitamin (formulary)] 1 tab PO DAILY RX: Aspirin 325 mg PO DAILY Metoprolol Tartrate [Lopressor] 12.5 mg PO BID RX: Atorvastatin [Lipitor] 40 mg PO HS Discharge Medication List RX: Clopidogrel [Plavix] 75 mg PO DAILY #30 tab 05/20/17 [Rx] Lisinopril [Zestril] 10 mg PO DAILY 02/06/18 [History] Spironolactone [Aldactone] 25 mg PO DAILY 02/06/18 [History] Metoprolol Tartrate [Lopressor] 12.5 mg PO BID 03/03/18 [History] Multivitamins, Thera [Multivitamin (formulary)] 1 tab PO DAILY 03/03/18 [History ] RX: Aspirin 325 mg PO DAILY 03/03/18 [History] RX: Atorvastatin [Lipitor] 40 mg PO HS 03/03/18 [History] Follow up Appointment(s)/Referral(s): Rolando House MD [STAFF PHYSICIAN] - 1 Week (Device clinic follow-up in 5 days Follow-up Dr. House as previously scheduled) Activity/Diet/Wound Care/Special Instructions: PATIENT EDUCATION MATERIAL Instructions following a heart rhythm device implant. 1. Keep dressing DRY for 5 DAYS. You may cover the area with Saran or Cling Wrap, prior to a shower. 2. The dressing will be removed in the Device Clinic at [facility]. Absorbable sutures were used to close the wound. 3. Avoid raising the left arm above the shoulder level. 4 week restriction 4. Avoid arm movements, like backscratching, rubbing the head, or pulling on a cord. 4 weeks restriction 5. Gentle range of motion movements of the shoulder, closest to the incision should be performed to avoid a frozen shoulder. (Pendulum exercises of the shoulder) 6. The opposite arm may be used freely. 7. Avoid driving for 7 days. 8. Avoid activities such as golfing, swimming, weed whacking, lifting more than 10 pounds weight, bowling, gymnastics and weight training/lifting. (6 weeks restriction) 9. Activities such as wood chopping with an axe, pull-ups in the gymnasium, power lifting, arc-welding, being close to home induction cooktops will always be a problem. 10. Arm sling is only a reminder not to raise the arm above the head. You do not need to keep the arm completely immobilized. Your free to move the arm and use it and for normal activities. In case of any problems, please call [facility], [facility], @ [phone], Attention: Device Clinic Device clinic follow-up in 5 days Follow-up with primary tester operator in 2-3 months/as previously scheduled, Dr. House Discharge Disposition: HOME SELF-CARE
[2018-03-06] MEDS ORDERED: CLOPIDOGREL 75 MG TAB PO SCH (09:00)
[2018-03-06] MEDS ORDERED: LISINOPRIL 10 MG TAB PO SCH (09:00)
[2018-03-06] MEDS ORDERED: ASPIRIN 325 MG TAB PO SCH (09:00)
[2018-03-06] MEDS ORDERED: SPIRONOLACTONE 25 MG TAB PO SCH (09:00)
[2018-03-06] MEDS: METOPROLOL TARTRATE 12.5 MG TAB PO SCH (09:07)
--- NOTE | 2018-03-06 10:52 | XR ---
EXAMINATION TYPE: XR chest 2V DATE OF EXAM: 03/06/2018 COMPARISON: Prior chest x-ray 05/20/2017 HISTORY: Lead placement check TECHNIQUE: Frontal and lateral views of the chest are obtained. FINDINGS: There is been interval placement of a generator in the left pectoral region, intracardiac defibrillator lead within the right ventricle. Patient is post median sternotomy. No evident pneumoth orax or pleural effusion. There are overlying cardiac leads. IMPRESSION: No evident complication status post defibrillator placement.
[2018-03-06 11:54] VITALS: BP 113/70; PULSE 53; RESP 18; TEMP 97.9
== END 2018-03-06 18:00 | disposition home or self-care (01) ==
LOC: CATHEP 12:58 → 1SOBS 18:03 → CATHEP 03-06 18:00
PROVIDERS: ATTEND Internal Medicine Clinical Cardiac Electrophysiology
DX: I25.5 Ischemic cardiomyopathy (principal); I11.0 Hypertensive heart disease with heart failure; I50.22 Chronic systolic (congestive) heart failure; Z00.6 Encounter for examination for normal comparison and control in clinical research program; I25.10 Atherosclerotic heart disease of native coronary artery without angina pectoris; E78.5 Hyperlipidemia, unspecified; I48.0 Paroxysmal atrial fibrillation; E78.2 Mixed hyperlipidemia; K21.9 Gastro-esophageal reflux disease without esophagitis; I25.2 Old myocardial infarction; Z95.1 Presence of aortocoronary bypass graft; Z79.02 Long term (current) use of antithrombotics/antiplatelets; Z79.82 Long term (current) use of aspirin; Z79.899 Other long term (current) drug therapy; Z88.4 Allergy status to anesthetic agent; Z88.0 Allergy status to penicillin; Z88.7 Allergy status to serum and vaccine; Z87.891 Personal history of nicotine dependence
CPT/HCPCS: 93641; 33249; 71046; C1769 ×2; C1892; C1730; C1777; C1722; J2250; J2001; J3010; J2704; Q9966

== ENCOUNTER → 2018-08-06 | Outpatient (CLI) | payer MEDICARE ==
[2018-08-06 16:44] LABS: Albumin 4.3 g/dL (3.80-4.90); Albumin/Globulin Ratio 2.26 (1.60-3.17); Calcium 9.1 mg/dL (8.7-10.3); Globulin 1.9 g/dL (1.6-3.3); LDL Cholesterol,Calculated 55.4 mg/dL (0.0-131.0); Potassium 4.9 mmol/L (3.5-5.5); Total Bilirubin 0.5 mg/dL (0.2-1.2); Total Protein 6.2 g/dL (6.2-8.2); VLDL Calculation 14.6 mg/dL (5.00-40.00)
== END ==
LOC: LABWHC1 09:39
PROVIDERS: ATTEND Internal Medicine Interventional Cardiology
DX: E78.2 Mixed hyperlipidemia (principal)
CPT/HCPCS: 36415; 80053; 80061

== ENCOUNTER → 2019-01-13 | Outpatient (CLI) | payer MEDICARE ==
[2019-01-13 16:09] LABS: African American GFR (CKD) 86.8 (60.0-200.0); Albumin 4.4 g/dL (3.80-4.90); Albumin/Globulin Ratio 2.44 (1.60-3.17); Anion Gap 11.2 mmol/L (4.00-12.00); Calcium 9.2 mg/dL (8.7-10.3); Carbon Dioxide 21.8 mmol/L (21.6-31.8); Chol/HDL Ratio 2.63; Globulin 1.8 g/dL (1.6-3.3); Total Bilirubin 0.6 mg/dL (0.2-1.2); Total Protein 6.2 g/dL (6.2-8.2)
== END | disposition home or self-care (01) ==
LOC: LABWHC1 09:55
PROVIDERS: ATTEND Internal Medicine Interventional Cardiology
DX: E78.2 Mixed hyperlipidemia (principal)
CPT/HCPCS: 36415; 80053; 80061

== ENCOUNTER → 2019-08-04 | Outpatient (CLI) | payer MEDICARE ==
[2019-08-04 16:12] LABS: African American GFR (CKD) 86.2 (60.0-200.0); Albumin 4.2 g/dL (3.80-4.90); Anion Gap 9.4 mmol/L (4.00-12.00); Calcium 9.1 mg/dL (8.7-10.3); Carbon Dioxide 25.6 mmol/L (21.6-31.8); Chol/HDL Ratio 2.48; Globulin 2.1 g/dL (1.6-3.3); LDL Cholesterol,Calculated 56.2 mg/dL (0.0-131.0); Non-African American GFR(CKD) 74.3 (60.0-200.0); Total Bilirubin 0.7 mg/dL (0.3-1.2); Total Protein 6.3 g/dL (6.2-8.2); VLDL Calculation 14.8 mg/dL (5.00-40.00)
== END | disposition home or self-care (01) ==
LOC: LABWHC1 08:44
PROVIDERS: ATTEND Internal Medicine Interventional Cardiology
DX: E78.2 Mixed hyperlipidemia (principal)
CPT/HCPCS: 36415; 80053; 80061

== ENCOUNTER → 2020-01-19 | Outpatient (CLI) | payer MEDICARE ==
[2020-01-19 19:27] LABS: Chol/HDL Ratio 2.53; LDL Cholesterol,Calculated 57.6 mg/dL (0.0-131.0); VLDL Calculation 20.4 mg/dL (5.00-40.00)
== END | disposition home or self-care (01) ==
LOC: LABWHC1 09:38
PROVIDERS: ATTEND Nurse Practitioner Adult Health
DX: E78.2 Mixed hyperlipidemia (principal)
CPT/HCPCS: 36415; 80061

== ENCOUNTER → 2020-02-08 | Outpatient (CLI) | payer MEDICARE ==
[2020-02-08 11:39] LABS: African American GFR (CKD) >90 (>60 ml/min/1.73 sqM); Blood Urea Nitrogen 16 mg/dL (9-20); Non-African American GFR(CKD) 80 (>60 ml/min/1.73 sqM)
--- NOTE | 2020-02-08 15:30 | CT ---
EXAMINATION TYPE: CT angio chest DATE OF EXAM: 02/08/2020 COMPARISON: Chest x-ray 03/06/2018 HISTORY: Thoracic Aortic aneurysm CT DLP: 595.6 mGycm Automated exposure control for dose reduction was used. CONTRAST: CTA scan of the thorax is performed with IV Contrast, patient injected with 100 mL of Isovue 370, pul monary embolism protocol. MIP images are created and reviewed. 3D reconstructed images are created on an independent workstation and reviewed. FINDINGS: Patient is post median sternotomy, there is a generator in left pectoral region, lead in th e right ventricle LUNGS: The lungs are grossly clear, there is no concerning parenchymal mass or nodule identified. T here is no pleural effusion or pneumothorax seen. The tracheobronchial tree is patent. AORTA: No additional significant abnormality is seen. Aortic root measures 3.3 cm, ascending aorta m easures 3.9 cm, proximal descending aorta measures 3.2 cm, the aorta at the level of the hiatus measu res 2.8 cm. MEDIASTINUM: There is satisfactory enhancement of the pulmonary artery and its branches, there is no CT evidence for pulmonary embolism. There are no greater than 1 cm hilar or mediastinal lymph nodes. No pericardial effusion is seen. OTHER: No additional significant abnormality is seen. IMPRESSION: Aortic measurements as described.
== END | disposition home or self-care (01) ==
LOC: RADCTMAIN 10:24
PROVIDERS: ATTEND Internal Medicine Interventional Cardiology
DX: I71.2 Thoracic aortic aneurysm, without rupture (principal); Z88.0 Allergy status to penicillin; Z88.4 Allergy status to anesthetic agent
CPT/HCPCS: 82565; 84520; 71275; 36415; Q9967

== ENCOUNTER → 2020-08-08 | Outpatient (CLI) | payer MEDICARE ==
[2020-08-08 18:20] LABS: African American GFR (CKD) 85.6 (60.0-200.0); Albumin/Globulin Ratio 1.9 (1.60-3.17); Anion Gap 10.8 mmol/L (4.00-12.00); Calcium 8.6 mg/dL (8.7-10.3); Carbon Dioxide 22.2 mmol/L (21.6-31.8); Chol/HDL Ratio 2.64; Globulin 2.1 g/dL (1.6-3.3); LDL Cholesterol,Calculated 56.6 mg/dL (0.0-131.0); Non-African American GFR(CKD) 73.8 (60.0-200.0); Potassium 5.1 mmol/L (3.5-5.5); Total Bilirubin 0.4 mg/dL (0.2-1.2); Total Protein 6.1 g/dL (6.2-8.2); VLDL Calculation 15.4 mg/dL (5.00-40.00)
== END | disposition home or self-care (01) ==
LOC: LABWHC1 07:11
PROVIDERS: ATTEND Nurse Practitioner Adult Health
DX: E78.2 Mixed hyperlipidemia (principal); I10 Essential (primary) hypertension
CPT/HCPCS: 36415; 80053; 80061

== ENCOUNTER → 2021-01-16 | Outpatient (CLI) | payer MEDICARE ==
[2021-01-16 19:48] LABS: Chol/HDL Ratio 2.58 Ratio; LDL Cholesterol,Calculated 63.4 mg/dL (0.0-131.0); VLDL Calculation 20.6 mg/dL (5.00-40.00)
== END | disposition home or self-care (01) ==
LOC: LABWHC1 09:56
PROVIDERS: ATTEND Nurse Practitioner Adult Health
DX: E78.2 Mixed hyperlipidemia (principal)
CPT/HCPCS: 36415; 80061; 84450; 84460

== ENCOUNTER 2021-02-05 07:32 | Day surgery (SDC) | payer MEDICARE ==
[2021-02-01 11:40] VITALS: BMI 37.2
--- NOTE | 2021-02-05 07:13 | P.GSHP ---
History of Present Illness H&P Date: 02/05/21 CHIEF COMPLAINT: Colon screen HISTORY OF PRESENT ILLNESS: The patient is a 75-year-old male who presents for colon screen. Lower endoscopy was offered for further evaluation and management. PAST MEDICAL HISTORY: Please see list. PAST SURGICAL HISTORY: Please see list. MEDICATIONS: Please see list. ALLERGIES: Please see list. SOCIAL HISTORY: No illicit drug use FAMILY HISTORY: No reports of Crohn disease or ulcerative colitis. REVIEW OF ORGAN SYSTEMS: CONSTITUTIONAL: No reports of fevers or chills. PHYSICAL EXAM: VITAL SIGNS: Stable GENERAL: Well-developed pleasant in no acute distress. HEENT: No scleral icterus. Extraocular movements grossly intact. Moist buccal mucosa. NECK: Supple without lymphadenopathy. CHEST: Unlabored respirations. Equal bilateral excursions. CARDIOVASCULAR: Regular rate and rhythm. Distal 2+ pulses. ABDOMEN: Soft, nontender, nondistended. MUSCULOSKELETAL: No clubbing, cyanosis, or edema. ASSESSMENT: 1. Colon screen. PLAN: 1. Recommend proceeding with a lower endoscopy Past Medical History Past Medical History: Atrial Fibrillation, Coronary Artery Disease (CAD), Hypertension, Osteoarthritis (OA), Pneumonia Additional Past Medical History / Comment(s): PAST HX OF RECURRENT LEFT LEG ULCER X3, A-Fib briefly after CABG, History of Any Multi-Drug Resistant Organisms: None Reported Past Surgical History: Coronary Bypass/CABG Additional Past Surgical History / Comment(s): STATES PROCEDURE TO IMPROVE CIRCULATION LEFT LEG DONE AT DRS OFFICE. CABG quad.bypass 04/2017, colonscopy Past Anesthesia/Blood Transfusion Reactions: No Reported Reaction Additional Past Anesthesia/Blood Transfusion Reaction / Comment(s): . Smoking Status: Former smoker - Past Family History Father Family Medical History: Myocardial Infarction ([place]) Additional Family Medical History / Comment(s): at age 90 from mi Mother Family Medical History: No Reported History Additional Family Medical History / Comment(s): . Medications and Allergies Home Medications Medication Instructions Recorded Confirmed Type Spironolactone [Aldactone] 25 mg PO DAILY 02/06/18 02/01/21 History lisinopriL [Zestril] 10 mg PO DAILY 02/06/18 02/01/21 History Atorvastatin [Lipitor] 40 mg PO HS 03/03/18 02/01/21 History Metoprolol Tartrate [Lopressor] 12.5 mg PO BID 03/03/18 02/01/21 History Multivitamins, Thera [Multivitamin 1 tab PO DAILY 03/03/18 02/01/21 History (formulary)] Aspirin [Adult Low Dose Aspirin EC] 81 mg PO DAILY 02/01/21 02/01/21 History Allergies Allergy/AdvReac Type Severity Reaction Status Date / Time bee venom protein (honey bee) Allergy Dyspnea, Verified 02/01/21 11:31 swelling Penicillins Allergy Rash/Hives Verified 02/01/21 11:31 procaine [From Novocain] Allergy Dyspnea Verified 02/01/21 11:31 Influenza Virus Vaccines AdvReac Unknown DID NOT Verified 02/01/21 11:31 FEEL WELL , PASSED OUT .
[~2021-02-05 07:32] MED LIST changes: -CLINDAMYCIN 600 MG in SODIUM CHLORIDE 0.9% IRRIGATIO 250 ML IRRIGATION ONE; -CLINDAMYCIN 900 MG in DEXTROSE 5% IN WATER 50 ML IVPB ONE; +LACTATED RINGERS 1,000 ML IV SCH; -SODIUM CHLORIDE 0.9% 1,000 ML IV SCH
[2021-02-05] MEDS ORDERED: PROPOFOL 10 MG/ML 20 ML VIAL IV ONE (08:16)
--- NOTE | 2021-02-05 08:50 | P.PCN ---
Date of Procedure: 02/05/21 Description of Procedure: PREOPERATIVE DIAGNOSIS: Personal history of colon polyps Colonoscopy screening POSTOPERATIVE DIAGNOSIS: Tubular adenoma transverse colon Sigmoid diverticulosis Pandiverticulosis OPERATION: Colonoscopy to the ileocecal valve and appendiceal orifice, cecum Colonoscopy with hot snare polypectomy SURGEON: Kayley Castle MD. ANESTHESIA: MAC. INDICATIONS: The patient is an 75-year-old male who presents personal history of colon polyps. Last colonoscopy 5 years. Benefits and risks were described and informed consent was obtained. DESCRIPTION OF PROCEDURE: The patient had undergone Sutab prep. The patient had been brought into the operating room and laid in the left lateral decubitus position. After adequate intravenous sedation, the rectum was examined with 2% lidocaine jelly. The prostate was unremarkable. No external hemorrhoids were encountered. The rectal tone was within normal limits. No lesions were palpated in the rectal vault. An Olympus colonoscope was advanced until the cecum, ileocecal valve and appendiceal orifice were clearly viewed. The prep was fair. Sigmoid diverticulosis was encountered. Severe pandiverticulosis was found. Colonic polyps were found and removed. No evidence of focal colitis was found. Retroflexion of the scope demonstrated grade 1 internal hemorrhoids without active bleeding or inflammation. The colon was desufflated. The patient had tolerated the procedure well. Withdrawal time was over 6 minutes. FINDINGS: Aronchick preparation quality scale 3 (1-5) Internal hemorrhoids, grade 1 No external hemorrhoids, grade 4. No arteriovenous malformations. Sigmoid diverticulosis with pandiverticulosis. Removal of 1 polyps: - Snare polypectomy mid-transverse colon, 5 mm tubulovillous adenoma polyp. No focal colitis. RECOMMENDATIONS: Repeat colonoscopy 3 years, 2023 Recommend liquid diet prep 2 days Plan - Discharge Summary New Discharge Prescriptions: No Action lisinopriL [Zestril] 10 mg PO DAILY Spironolactone [Aldactone] 25 mg PO DAILY Multivitamins, Thera [Multivitamin (formulary)] 1 tab PO DAILY Metoprolol Tartrate [Lopressor] 12.5 mg PO BID Atorvastatin [Lipitor] 40 mg PO HS Aspirin [Adult Low Dose Aspirin EC] 81 mg PO DAILY Discharge Medication List Spironolactone [Aldactone] 25 mg PO DAILY 02/06/18 [History] lisinopriL [Zestril] 10 mg PO DAILY 02/06/18 [History] Atorvastatin [Lipitor] 40 mg PO HS 03/03/18 [History] Metoprolol Tartrate [Lopressor] 12.5 mg PO BID 03/03/18 [History] Multivitamins, Thera [Multivitamin (formulary)] 1 tab PO DAILY 03/03/18 [History] Aspirin [Adult Low Dose Aspirin EC] 81 mg PO DAILY 02/01/21 [History]
[2021-02-05 09:02] VITALS: BP 105/71; PULSE 58; RESP 16
== END 2021-02-05 09:49 | disposition home or self-care (01) ==
LOC: ORWHC2ENDO 07:32
PROVIDERS: ATTEND Surgery Plastic and Reconstructive Surgery
DX: Z12.11 Encounter for screening for malignant neoplasm of colon (principal); D12.3 Benign neoplasm of transverse colon; K57.30 Diverticulosis of large intestine without perforation or abscess without bleeding; I10 Essential (primary) hypertension; I25.10 Atherosclerotic heart disease of native coronary artery without angina pectoris; I48.91 Unspecified atrial fibrillation; M19.90 Unspecified osteoarthritis, unspecified site; Z79.82 Long term (current) use of aspirin; Z82.49 Family history of ischemic heart disease and other diseases of the circulatory system; Z87.19 Personal history of other diseases of the digestive system; Z87.891 Personal history of nicotine dependence; Z88.0 Allergy status to penicillin; Z95.1 Presence of aortocoronary bypass graft
CPT/HCPCS: 45385; 88305; J2704

== ENCOUNTER → 2021-08-15 | Outpatient (CLI) | payer MEDICARE ==
[2021-08-15 15:14] LABS: LDL Cholesterol,Calculated 50.4 mg/dL (0.0-131.0); VLDL Calculation 13.42 mg/dL (5.00-40.00)
[2021-08-15 15:27] LABS: ALT 25 U/L (10-49); AST 31 U/L (14-35); African American GFR (CKD) 80.1 (60.0-200.0); Albumin 4.3 g/dL (3.8-4.9); Albumin/Globulin Ratio 1.59 (1.60-3.17); Alkaline Phosphatase 54 U/L (41-126); Blood Urea Nitrogen 14.8 mg/dL (9.0-27.0); Calcium 9.3 mg/dL (8.7-10.3); Carbon Dioxide 20.1 mmol/L (20.0-27.5); Chloride 105 mmol/L (96-109); Globulin 2.7 g/dL (1.6-3.3); Glucose 108 mg/dL (70-110); Non-African American GFR(CKD) 69.1 (60.0-200.0); Potassium 4.6 mmol/L (3.5-5.5); Sodium 138 mmol/L (135-145)
== END | disposition home or self-care (01) ==
LOC: LABWHC1 09:19
PROVIDERS: ATTEND Nurse Practitioner Adult Health
DX: I10 Essential (primary) hypertension (principal); E78.2 Mixed hyperlipidemia
CPT/HCPCS: 36415; 80053; 80061

== ENCOUNTER → 2022-02-21 | Outpatient (CLI) | payer MEDICARE ==
[2022-02-21 15:31] LABS: ALT 26 U/L (10-49); AST 21 U/L (14-35); LDL Cholesterol,Calculated 53.8 mg/dL (0.0-131.0)
== END | disposition home or self-care (01) ==
LOC: LABWHC1 08:44
PROVIDERS: ATTEND Internal Medicine Interventional Cardiology
DX: Z12.5 Encounter for screening for malignant neoplasm of prostate (principal); E78.2 Mixed hyperlipidemia
CPT/HCPCS: 36415; 80061; 84450; 84460

== ENCOUNTER → 2022-09-03 | Outpatient (CLI) | payer MEDICARE ==
[2022-09-03 11:50] LABS: ALT 26 U/L (10-49); AST 24 U/L (14-35); Albumin 4.2 d/dL (3.8-4.9); Alkaline Phosphatase 50 U/L (41-126); Blood Urea Nitrogen 15.4 mg/dL (9.0-27.0); Calcium 9.3 mg/dL (8.7-10.3); Carbon Dioxide 22.5 mmol/L (21.6-31.8); Chloride 105 mmol/L (96-109); Chol/HDL Ratio 2.48 Ratio; Globulin 2.1 d/dL (1.6-3.3); Glucose 106 mg/dL (70-110); LDL Cholesterol,Calculated 49.2 mg/dL (0.0-131.0); Potassium 4.7 mmol/L (3.5-5.5); Sodium 138 mmol/L (135-145); Total Bilirubin 0.6 mg/dL (0.3-1.2); Total Protein 6.3 d/dL (6.2-8.2)
== END | disposition home or self-care (01) ==
LOC: LABWHC1 07:46
PROVIDERS: ATTEND Nurse Practitioner Adult Health
DX: I10 Essential (primary) hypertension (principal); E78.2 Mixed hyperlipidemia
CPT/HCPCS: 36415; 80053; 80061

== ENCOUNTER → 2023-02-25 | Outpatient (CLI) | payer MEDICARE ==
[2023-02-25 11:20] LABS: ALT 25 U/L (10-49); AST 23 U/L (14-35); Albumin 4.1 g/dL (3.8-4.9); Albumin/Globulin Ratio 1.86 Ratio (1.60-3.17); Alkaline Phosphatase 54 U/L (41-126); Blood Urea Nitrogen 14.8 mg/dL (9.0-27.0); Calcium 9.2 mg/dL (8.7-10.3); Carbon Dioxide 21.6 mmol/L (21.6-31.8); Chloride 105 mmol/L (96-109); Chol/HDL Ratio 2.51 Ratio; Globulin 2.2 g/dL (1.6-3.3); Glucose 106 mg/dL (70-110); LDL Cholesterol,Calculated 53.7 mg/dL (0.0-131.0); Potassium 4.5 mmol/L (3.5-5.5); Sodium 139 mmol/L (135-145); Total Bilirubin 0.4 mg/dL (0.3-1.2); Total Protein 6.3 g/dL (6.2-8.2)
== END | disposition home or self-care (01) ==
LOC: LABWHC1 07:54
PROVIDERS: ATTEND Internal Medicine Interventional Cardiology
DX: I10 Essential (primary) hypertension (principal); E78.2 Mixed hyperlipidemia
CPT/HCPCS: 36415; 80053; 80061

== ENCOUNTER → 2023-09-10 | Outpatient (CLI) | payer MEDICARE ==
[2023-09-10 15:27] LABS: ALT 24 U/L (10-49); AST 23 U/L (14-35); Albumin 4.2 g/dL (3.8-4.9); Alkaline Phosphatase 58 U/L (41-126); Calcium 9.3 mg/dL (8.7-10.3); Chloride 106 mmol/L (96-109); Chol/HDL Ratio 2.44 Ratio; Globulin 2.1 g/dL (1.6-3.3); Glucose 105 mg/dL (70-110); LDL Cholesterol,Calculated 47.4 mg/dL (0.0-131.0); Potassium 4.7 mmol/L (3.5-5.5); Sodium 140 mmol/L (135-145); Total Bilirubin 0.5 mg/dL (0.3-1.2); Total Protein 6.3 g/dL (6.2-8.2)
== END | disposition home or self-care (01) ==
LOC: LABWHC1 08:03
PROVIDERS: ATTEND Internal Medicine Interventional Cardiology
DX: E78.2 Mixed hyperlipidemia (principal)
CPT/HCPCS: 36415; 80053; 80061

== ENCOUNTER → 2024-04-08 | Outpatient (CLI) | payer MEDICARE ==
[2024-04-08 10:38] LABS: Chol/HDL Ratio 2.45 Ratio
[2024-04-08 10:39] LABS: ALT 23 U/L (10-49); AST 23 U/L (14-35); LDL Cholesterol,Calculated 51.2 mg/dL (0.0-131.0)
== END | disposition home or self-care (01) ==
LOC: LABWHC1 07:58
PROVIDERS: ATTEND Internal Medicine Interventional Cardiology
DX: E78.2 Mixed hyperlipidemia (principal)
CPT/HCPCS: 36415; 80061; 84450; 84460